=== PATIENT | female | born 1960 | race Caucasian/White ===

== ENCOUNTER 2017-02-28 15:28 | Inpatient (IN) | payer OTHER ==
[2017-02-28] VITALS (14 sets, daily range): BP systolic 106–152; BP diastolic 52–77
[~2017-02-28] VITALS: Ht 172.7 cm; Wt 111.6 kg
[~2017-02-28 15:28] MED LIST: ACET65TA; AMLO10TA; CETI5TAB2; FLAG500T; FLON0.05; LEVA500T; LOPR100T; PROV90AE; VICO5TAB
[2017-02-28] MEDS ORDERED: ALBU17IN INH (15:51)
[2017-02-28] MEDS ORDERED: BUSP1TAB PO (15:51)
[2017-02-28] MEDS ORDERED: METO-346 PO (15:51)
[2017-02-28] MEDS ORDERED: LISI10TA4 PO (15:51)
[2017-02-28] MEDS ORDERED: SYMB16INH INH (15:51)
[2017-02-28] MEDS ORDERED: ALBU83IN INH (15:51)
[2017-02-28] MEDS ORDERED: SERT-138 PO (15:51)
[2017-02-28] MEDS: METOPROLOL 5 MG/5 ML VIAL IV SCH ×3 (16:06→16:14)
[2017-02-28] MEDS ORDERED: NS 500 ML IV ONE ×3 (16:30→21:30)
[2017-02-28] MEDS ORDERED: METOPROLOL TART 25 MG TABLET PO ONE (16:30)
[2017-02-28 16:46] LABS: BASO % 0.3 % (0.0-1.0); EOS # 0.1 K/mm3 (0.0-0.50); EOS % 1.6 % (0.0-3.0); LARGE UNSTAINED CELL # 0.1 K/mm3 (0.0-0.4); LARGE UNSTAINED CELL % 1.4 % (0.0-4.0); LYMPH # 1.5 K/mm3 (1.5-4.5); LYMPH % 18.9 % (24.0-44.0); MEAN CORPUSCULAR HEMOGLOBIN 31.1 pg (27.0-33.0); MEAN CORPUSCULAR HGB CONC 32.7 g/dl (32.0-36.5); MEAN CORPUSCULAR VOLUME 95.1 fl (80.0-96.0); MONO # 0.5 K/mm3 (0.0-0.8); MONO % 6.2 % (0.0-5.0); NEUTROPHILS # 5.6 K/mm3 (1.8-7.7); NEUTROPHILS % 71.6 % (36.0-66.0); PLATELET COUNT, AUTOMATED 325 k/mm3 (150-450); RED CELL DISTRIBUTION WIDTH 13.5 % (11.5-14.5); WHITE BLOOD COUNT 7.8 K/mm3 (4.0-10.0)
[2017-02-28 16:56] LABS: ALBUMIN 3.4 GM/DL (3.2-5.2); ALBUMIN/GLOBULIN RATIO 0.67 (1.00-1.93); ALT/SGPT 21 U/L (12-78); ANION GAP 12 MEQ/L (8-16); AST/SGOT 40 U/L (15-37); BILIRUBIN,DIRECT 0.8 MG/DL (0.0-0.2); BILIRUBIN,TOTAL 1.3 MG/DL (0.2-1.0); BLOOD UREA NITROGEN 21 MG/DL (7-18); CALCIUM LEVEL 8.9 MG/DL (8.5-10.1); CARBON DIOXIDE LEVEL 19 MEQ/L (21-32); CHLORIDE LEVEL 105 MEQ/L (98-107); CREATININE FOR GFR 0.93 MG/DL (0.55-1.02); GLOMERULAR FILTRATION RATE > 60.0 (>51); GLUCOSE, FASTING 128 MG/DL (70-105); POTASSIUM SERUM 3.8 MEQ/L (3.5-5.1); SODIUM LEVEL 136 MEQ/L (136-145); T UPTAKE 30 % (30-39); THYROXINE (T4) 9.9 UG/DL (4.5-12.0); TOTAL PROTEIN 8.5 GM/DL (6.4-8.2)
[2017-02-28 17:02] LABS: ALKALINE PHOSPHATASE 186 U/L (45-117)
--- NOTE | 2017-02-28 17:16 | REP ---
Chest two views HISTORY: Chest pain Comparison: 05/16/2014 The lungs are clear. The cardiac silhouette is enlarged. The pulmonary vasculature is normal in appearance. The bony structure is intact. IMPRESSION: Cardiomegaly Signed by Thomas Jay MD 02/28/2017 05:08 P
[2017-02-28] MEDS ORDERED: NORCO, ANEXSIA 5/325MG TABLET (HYDROcodone/ACETAMINOPHEN) PO ONE (17:30)
--- NOTE | 2017-02-28 17:59 | REP ---
RIGHT SHOULDER, THREE VIEWS: HISTORY: Pain. There is no acute fracture or dislocation. There is narrowing of the acromioclavicular joint space with associated osteophyte formation. IMPRESSION: Degenerative change as described above. Signed by Thomas Jay MD 02/28/2017 06:09 P
--- NOTE | 2017-02-28 18:24 | REP ---
LIMITED ABDOMINAL ULTRASOUND: HISTORY: Right upper quadrant pain. The patient is status-post cholecystectomy. The liver is enlarged measuring 21.6 cm. There is fatty infiltration of the liver. The pancreas is not seen due to overlying bowel gas. The right kidney is normal in echogenicity. The right kidney measures 5.7 cm in transverse x 6 cm in AP x 12 cm in cephalocaudal dimensions. There is no hydronephrosis or mass. IMPRESSION: 1. The patient is status-post cholecystectomy. 2. Fatty infiltration of the liver. Signed by Tohmas Jay MD 02/28/2017 06:29 P
[2017-02-28] MEDS ORDERED: METO25TAB PO (18:38)
[2017-02-28] MEDS ORDERED: VITA-130 PO (18:41)
[2017-02-28] MEDS ORDERED: VITA80005 PO (18:41)
[2017-02-28] MEDS ORDERED: NATU400T PO (18:41)
[2017-02-28] MEDS ORDERED: CETI5TAB2 PO (18:41)
[2017-02-28] MEDS ORDERED: ASPI325T PO (18:41)
[2017-02-28] MEDS ORDERED: VITA200015 PO (18:41)
[2017-02-28] MEDS ORDERED: VITATAB11 PO (18:41)
[2017-02-28] MEDS ORDERED: NS 1,000 ML IV ONE (19:15)
[2017-02-28] MEDS ORDERED: PERCOCET 5MG/325MG TAB PO PRN (19:30)
[2017-02-28] MEDS ORDERED: POTASSIUM CHLORIDE 10 MEQ SR TABLET PO ONE (19:30)
--- NOTE | 2017-02-28 19:36 | HPEPDOC ---
Medical History and Physical Date of Admission 02/28/17 History and Physical PRIMARY CARE PROVIDER: Dr. Villalobos ATTENDING: Dr. Katelyn Rosario CHIEF COMPLAINT: Shortness of breath HISTORY OF PRESENT ILLNESS: This is a 56-year-old female with a past medical history of asthma, hypertension , chronic allergic rhinitis, diverticulitis, hyperlipidemia who presents complaining of shortness of breath and cough. The patient states that she's been having a productive cough of white sputum, nasal congestion, postnasal drip, subjective fevers and chills over the past week. Patient has had no sick contacts or recent travels. Patient presented to the urgent care Center today and was found to be in atrial fibrillation with rapid ventricular rate for which she was sent to the emergency department. In the ED patient received metoprolol, and IV fluids. And will be admitted for uncontrolled rapid ventricular rate. PAST MEDICAL HISTORY: As per HPI PAST SURGICAL HISTORY: , hernia repair, cholecystectomy SOCIAL HISTORY: Denies tobacco or illicit drug use. Occasional alcohol. 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 FAMILY HISTORY: Grandmother with an MO at unknown age. ALLERGIES: Please see below. REVIEW OF SYSTEMS: HEENT: Denies sore throat/headache CARDIOVASCULAR: Denies chest pain/palpitations RESPIRATORY: + shortness of breath/cough GASTROINTESTINAL: denies nausea/vomiting GENITOURINARY: Denies dysuria/urinary urgency. MUSCULOSKELETAL: Denies myalgias/arthralgias NEUROLOGICAL: Denies any focal weakness Rest of ROS negative. HOME MEDICATIONS: Please see below. PHYSICAL EXAMINATION: Vitals: (see below) General: No acute distress, laying comfortably in bed. HEENT: Moist mucous membranes. Neck: No JVD or lymphadenopathy Cardiac: Irregularly irregular, tachycardic, No murmurs Pulm: Exp wheezing b/l. No rhonchi, stridor, or use of accessory muscles. Abd: NT/ND + BS Ext: No edema or cyanosis LABORATORY DATA: See below. IMAGING: CXR 02/28/17 The lungs are clear. The cardiac silhouette is enlarged. The pulmonary vasculature is normal in appearance. The bony structure is intact. IMPRESSION: Cardiomegaly Abd u/s 02/28/17 IMPRESSION: 1. The patient is status-post cholecystectomy. 2. Fatty infiltration of the liver. Right shoulder x ray 5/3/17 IMPRESSION: Degenerative change as described above. MICROBIOLOGY: Please see below. ASSESSMENT/PLAN: 1. Atrial fibrillation with rapid ventricular rate - CHADSVASc 2: Hold off on anticoag given pericardial effusion. Continue metoprolol. IV fluids. Questionable whether patient has an underlying infectious etiology given her subjective fevers chills, pulmonary symptoms, and a CRP of 10. We'll start patient on Levaquin. CT of the chest without contrast. Respiratory panel. Blood and sputum cultures pending. 2. Large pericardial effusion - discussed with Dr. Lombardo - will order start echo - hold off on anticoagulation for AF for now. Monitor in PCU. 2. Hypertension- patient is borderline hypotensive. Will hold BP meds. On IV fluids. 3. Asthma exacerbation - ? Viral versus bacterial. On Levaquin. Respiratory panel pending. Nebulizers ordered. 4. Right shoulder degenerative changes - Percocet as needed 5. Fatty liver disease with mild transaminitis- lipid panel, statin Due to prophylaxis- Lovenox Patient was followed by Dr. Rosario starting 02/28/17 at 7 AM. Vital Signs Vital Signs Date Time Temp Pulse Resp B/P (MAP) Pulse Ox O2 Delivery O2 Flow Rate FiO2 02/28/17 18:30 100/64 (76) 02/28/17 18:28 122 95 02/28/17 17:30 16 02/28/17 16:14 Nasal Cannula 3.0 02/28/17 15:28 97.6 Laboratory Data Labs 24H Laboratory Tests 2 02/28/17 15:52: White Blood Count 7.8, Red Blood Count 3.66L, Hemoglobin 11.4L, Hematocrit 34.8L , Mean Corpuscular Volume 95.1, Mean Corpuscular Hemoglobin 31.1, Mean Corpuscular Hemoglobin Concent 32.7, Red Cell Distribution Width 13.5, Platelet Count 325, Neutrophils (%) (Auto) 71.6H, Lymphocytes (%) (Auto) 18.9L, Monocytes (%) (Auto) 6.2H, Eosinophils (%) (Auto) 1.6, Basophils (%) (Auto) 0.3 , Neutrophils # (Auto) 5.6, Lymphocytes # (Auto) 1.5, Monocytes # (Auto) 0.5, Eosinophils # (Auto) 0.1, Basophils # (Auto) 0.0, Large Unclassified Cells % 1.4 , Large Unclassified Cells # 0.1, Activated Partial Thromboplast Time 38.7H, Anion Gap 12, Glomerular Filtration Rate > 60.0, Calcium Level 8.9, Aspartate Amino Transf (AST/SGOT) 40H, Alanine Aminotransferase (ALT/SGPT) 21, Alkaline Phosphatase 186H, Total Bilirubin 1.3H, Direct Bilirubin 0.8H, Total Creatine Kinase 35, Creatine Kinase MB 1.0, Creatine Kinase MB Relative Index 2.85, Troponin I < 0.02, C-Reactive Protein, Quantitative 10.10H, B-Type Natriuretic Peptide 401H, Total Protein 8.5H, Albumin 3.4, Albumin/Globulin Ratio 0.67L, Thyroid Stimulating Hormone (TSH) 2.000, Free Thyroxine Index 3.0, Thyroxine (T4 ) 9.9, Triiodothyronine (T3) Uptake 30 CBC/BMP Laboratory Tests 02/28/17 15:52 Red Blood Count 3.66 L, Mean Corpuscular Volume 95.1, Mean Corpuscular Hemoglobin 31.1, Mean Corpuscular Hemoglobin Concent 32.7, Red Cell Distribution Width 13.5, Neutrophils (%) (Auto) 71.6 H, Lymphocytes (%) (Auto) 18.9 L, Monocytes (%) (Auto) 6.2 H, Eosinophils (%) (Auto) 1.6, Basophils (%) ( Auto) 0.3, Neutrophils # (Auto) 5.6, Lymphocytes # (Auto) 1.5, Monocytes # (Auto ) 0.5, Eosinophils # (Auto) 0.1, Basophils # (Auto) 0.0 Microbiology Microbiology 02/28/17 Blood Culture, Received Pending 02/28/17 Blood Culture, Received Pending Home Medications Scheduled Alpha Tocopheryl Acid Succinat (Vitamin E) 400 Unit Tab, 400 UNIT PO DAILY Ascorbic Acid (Vitamin C) 500 Mg Tab, 500 MG PO DAILY Aspirin (Aspirin) 325 Mg Tab, 325 MG PO DAILY B1/B2/B3/B5/B6 (Vitamin B Complex) 1 Tab Tab, 1 TAB PO DAILY Budesonide/Formoterol (Symbicort 160-4.5 Mcg/Act) 60 Puff/Inhaler Aers, 1 PUFF INH BID Buspirone HCl (Buspirone HCl) 7.5 Mg Tab, 7.5 MG PO DAILY Cetirizine HCl (Cetirizine HCl) 5 Mg Tab, 5 MG PO DAILY Cholecalciferol (Vitamin D) 2,000 Unit Tab, 2,000 UNIT PO DAILY Lisinopril (Lisinopril) 10 Mg Tab, 10 MG PO BID Metoprolol Tartrate (Metoprolol Tartrate) 25 Mg Tab, 25 MG PO BID Sertraline HCl (Sertraline HCl) 100 Mg Tab, 100 MG PO DAILY Vitamin A Acetate (Vitamin A) 8,000 Unit Tab, 8,000 UNIT PO DAILY Scheduled PRN Albuterol Sulfate (Ventolin Hfa) 200 Puff/8 Gm Aers, 2 PUFFS INH Q4H PRN for SHORTNESS OF BREATH Albuterol Sulfate (Albuterol Sulfate) 2.5 Mg/3 Ml Nebu, 2.5 MG INH BID PRN for SHORTNESS OF BREATH Allergies Coded Allergies: Latex (Unverified Allergy, Intermediate, 02/28/17) verified with patient Penicillins (Verified Allergy, Intermediate, RASH, 07/10/16) Penicillins Cross Reactors (Verified Allergy, Intermediate, RASH, 07/10/16) Sulfa Drugs (Verified Allergy, Intermediate, RASH, 07/10/16) Sulfa Drugs Cross Reactors (Verified Allergy, Intermediate, RASH, 07/10/16) CARINA COLÓN MD February 28, 2017 19:36
[2017-02-28] MEDS ORDERED: MORPHINE 2 MG/ML 1ML SYRINGE IV ONE (19:45)
[2017-02-28] MEDS ORDERED: LevoFLOXacin IV 500 MG in APPROPRIATE DILUENT 1 EA IV ONE (20:00)
--- NOTE | 2017-02-28 20:20 | REPUSA ---
CT of the chest without contrast Clinical statement: Shortness of breath. Technique: Multiple axial CT images were obtained with 5 mm cuts through the chest without administra tion of contrast. No comparison is available. Findings: There is no thoracic lymphadenopathy. The visualized portions of the thyroid gland is unrem arkable. There is a large pericardial effusion. There are no pleural effusions. The lungs are clear. Limited imaging of the upper abdomen does not demonstrate any acute abnormalities. The liver is enlar ged, measuring 22.7 cm. The spleen is enlarged, measuring 14.9 cm. There are no suspicious osseous le sions. Impression: 1. No acute infiltrate or pleural effusion. 2. Large pericardial effusion. If there is further clinical concern, echocardiogram could be performe d. 3. Hepatosplenomegaly.
[2017-02-28] MEDS: SYMBICORT 160/4.5MCG INHALER 6GM INH SCH (21:00)
[2017-02-28] MEDS ORDERED: ENOXAPARIN 100MG/1ML SYRINGE (J1650) SC SCH (21:00)
[2017-02-28] MEDS ORDERED: METOPROLOL TART 25 MG TABLET PO SCH (21:00)
[2017-02-28 21:28] LABS: MAGNESIUM LEVEL 1.8 MG/DL (1.8-2.4)
--- NOTE | 2017-02-28 21:53 | ECGEPIP ---
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
[2017-02-28] MEDS ORDERED: MIDAZOLAM INJ 2 MG/2 ML VIAL (J2250) As Ordered ONE ×2 (22:05→22:53)
[2017-02-28] MEDS ORDERED: LIDOCAINE 1% MDV 20ML VIAL As Ordered ONE (22:05)
[2017-02-28] MEDS ORDERED: FLUMAZENIL 0.5 MG/5 ML VIAL As Ordered ONE (22:05)
[2017-02-28] MEDS ORDERED: MAG SULF 1GM/100ML (MAG RUN) 1 GM in APPROPRIATE DILUENT 1 EA IV ONE (22:15)
[2017-02-28] MEDS ORDERED: MORPHINE 4 MG/ML 1ML SYRINGE As Ordered ONE (23:07)
--- NOTE | 2017-02-28 23:12 | ECHO ---
DATE OF PROCEDURE: 02/28/2017 REFERRING PHYSICIAN: Katelyn Rosario MD PATIENT LOCATION: ICU REASON FOR ECHOCARDIOGRAM: Pericardial effusion on chest CT. 2D COMMENTS: 1. The study was technically limited due to poor acoustic window, no measurements. 2. The left ventricle appeared to be normal in size and systolic function appeared to be normal, estimated at 60% in limited views. 3. The left atrium appeared to be mildly enlarged subjectively. The right atrium and the right ventricle were not well visualized. 4. The atrial septum appeared to be normal in limited views. 5. The aortic root appeared to be normal. 6. Large pericardial effusion noted, no clear evidence of cardiac tamponade but in limited views, in the short axis view toward the base of the left ventricle, there was mild collapse of the right ventricle free wall. 7. Mildly calcified aortic valve, leaflet excursion appeared to be normal. Normal mitral valve. The tricuspid valve appeared to be normal in limited views. The proximal pulmonary artery branches were not well visualized. 8. The inferior vena cava was mildly enlarged in limited views without collapsing. DOPPLER: No significant valvular abnormalities were detected. Assessment of the left ventricular diastolic function was limited in view of the atrial fibrillation. IMPRESSION: 1. Technically limited study due to poor acoustic window. 2. Normal global left ventricular systolic function. 3. Large pericardial effusion, no clear evidence of cardiac tamponade. Not mentioned above in the Doppler section, there is some variation in the mitral inflow, but the patient has underlying atrial fibrillation. 4. No significant valvular abnormalities detected. 5. The case was discussed with hospitalist, and Dr. Salas was called for consult for pericardiocentesis versus pericardial window.
[2017-02-28] MEDS ORDERED: METOPROLOL 5 MG/5 ML VIAL IV STA (23:27)
[2017-02-28] MEDS ORDERED: BISACODYL 10 MG SUPP PR PRN (23:30)
[2017-02-28] MEDS ORDERED: ACETAMINOPHEN TAB 650MG DOSE (2X325MG) PO PRN (23:30)
[2017-02-28] MEDS ORDERED: LEVALBUTEROL 1.25 MG/0.5 ML CONCENTRATE NEB NEB PRN (23:30)
[2017-02-28] MEDS ORDERED: NORCO, ANEXSIA 5/325MG TABLET (HYDROcodone/ACETAMINOPHEN) PO PRN (23:30)
[2017-03-01] VITALS (19 sets, daily range): BP systolic 102–166; BP diastolic 55–79
[2017-03-01] MEDS ORDERED: MORPHINE 4 MG/ML 1ML SYRINGE IV ONE (00:15)
[2017-03-01] MEDS ORDERED: LIDOCAINE 1% MDV 20ML VIAL SC ONE (00:15)
[2017-03-01] MEDS ORDERED: MIDAZOLAM INJ 2 MG/2 ML VIAL (J2250) IV SCH (00:15)
[2017-03-01] MEDS: HEPARIN SOD (PORCINE) 5000 UNITS/ML VIAL SC SCH ×3 (00:34→21:46)
[2017-03-01 00:35] LABS: ABG BASE EXCESS -6.2 (-2.0-2.0); ABG PARTIAL PRESSURE CO2 31.4 mmHg (35.0-45.0); ABG PARTIAL PRESSURE O2 80.2 mmHg (75.0-100.0); ABG STANDARD HCO3 19.4 MEQ/L (22.0-26.0); ABG pH (ARTERIAL) 7.377 UNITS (7.350-7.450)
[2017-03-01] MEDS: KETOROLAC 30 MG/ML VIAL (J1885) IV SCH ×5 (00:36→23:36)
[2017-03-01] MEDS: VANCOMYCIN HCL 1,000 MG, VIAL MATE ADAPTER 1 EACH in D5W 250 ML IV SCH ×3 (00:36→23:36)
[2017-03-01] MEDS: LEVALBUTEROL 1.25 MG/0.5 ML CONCENTRATE NEB NEB SCH ×4 (01:05→20:00)
[2017-03-01 01:20] LABS: LDH, BODY FLUID 1902 U/L (NOT ESTABLISHED); TOTAL PROTEIN, BODY FLUID 6.3 G/DL (NOT ESTABLISHED)
[2017-03-01 01:50] LABS: BF DIFF IF INDICATED? YES (NO); RBC PLEURAL FLUID 227 (<10mm3 cells/uL); TNC PLEURAL FLUID 1569 cells/uL (0-20)
--- NOTE | 2017-03-01 02:08 | REP ---
Clinical: Chest pain. Comparison: 02/28/2017 at 05:07 p.m. Findings: Examination is limited by underpenetration and portable technique. Mild cardiomegaly cannot be excluded. Lung gonzales are essentially clear and without consolidation, obvious effusion, or pneumothorax. Skeletal structures intact. Impression: Limited portable examination. No focal consolidation. Cannot exclude mild cardiomegaly. Signed by Randolph Perera MD 03/01/2017 02:00 A
[2017-03-01 03:03] LABS: CC BF DIFF EXAM CYTOCENTRIFUGE
[2017-03-01] MEDS ORDERED: VANCOMYCIN HCL 500 MG in D5W MINI-BAG PLUS 100 ML IV SCH (04:00)
[2017-03-01 05:17] LABS: MEAN CORPUSCULAR HEMOGLOBIN 30.3 pg (27.0-33.0); MEAN CORPUSCULAR HGB CONC 31.6 g/dl (32.0-36.5); RED CELL DISTRIBUTION WIDTH 13.2 % (11.5-14.5); WHITE BLOOD COUNT 7.1 K/mm3 (4.0-10.0)
[2017-03-01 05:40] LABS: ANION GAP 10 MEQ/L (8-16); BLOOD UREA NITROGEN 19 MG/DL (7-18); CALCIUM LEVEL 8.2 MG/DL (8.5-10.1); CARBON DIOXIDE LEVEL 23 MEQ/L (21-32); CHLORIDE LEVEL 104 MEQ/L (98-107); CREATININE FOR GFR 0.85 MG/DL (0.55-1.02); GLOMERULAR FILTRATION RATE > 60.0 (>51); GLUCOSE, FASTING 106 MG/DL (70-105); MAGNESIUM LEVEL 1.9 MG/DL (1.8-2.4); POTASSIUM SERUM 3.8 MEQ/L (3.5-5.1); SODIUM LEVEL 137 MEQ/L (136-145)
--- NOTE | 2017-03-01 05:40 | ECHO ---
DATE OF PROCEDURE: 02/28/2017 DATE OF : 1960 AGE: 56 This is a limited echocardiogram done at bedside after pericardial centesis. About 650 mL of bloody pericardial fluid was sent. On a quick limited echocardiogram, only trace pericardial effusion was noted. Left ventricular systolic function is normal seems to have improved up to 65-70% with a hyperdynamic left ventricle. Please refer to the previous echocardiogram done earlier today prior to the pericardial centesis for details. IMPRESSION: As above.
[2017-03-01 05:53] LABS: ABG BASE EXCESS -5.2 (-2.0-2.0); ABG HCO3 19.1 MEQ/L (22.0-26.0); ABG PARTIAL PRESSURE O2 79.4 mmHg (75.0-100.0); ABG STANDARD HCO3 20.1 MEQ/L (22.0-26.0); ABG TOTAL CO2 20.1 MEQ/L (22.0-29.0)
--- NOTE | 2017-03-01 06:06 | PHACANCOPD ---
PHARMACY VANCOMYCIN DOSING Pt Demographics Demographics Patient Age:56 , Weight:109.500 , Gender: female Adjusted Body Weight Date: 03/01/17, Adjusted Body Weight: [80.1] Kg Vancomycin Vancomycin indication: ASTHMA EXACERBATION/EFFUSION Vancomycin Target Ranges: 15-20 mcg/ml Vancomycin Load Y/N: Yes Load Dose Date Time Vancomycin Load Dose: 1.5GM Date: 03/01 Time: 0200 Vancomycin Dose Date: 03/01/17. Current Vancomycin Dose: [1 GM Q12H] Intermittent Dosing?: No Labs Labs Laboratory Tests 02/28/17 15:52 Red Blood Count 3.66 L, Mean Corpuscular Volume 95.1, Mean Corpuscular Hemoglobin 31.1, Mean Corpuscular Hemoglobin Concent 32.7, Red Cell Distribution Width 13.5, Neutrophils (%) (Auto) 71.6 H, Lymphocytes (%) (Auto) 18.9 L, Monocytes (%) (Auto) 6.2 H, Eosinophils (%) (Auto) 1.6, Basophils (%) ( Auto) 0.3, Neutrophils # (Auto) 5.6, Lymphocytes # (Auto) 1.5, Monocytes # (Auto ) 0.5, Eosinophils # (Auto) 0.1, Basophils # (Auto) 0.0 03/01/17 05:00 Red Blood Count 3.39 L, Mean Corpuscular Volume 96.0, Mean Corpuscular Hemoglobin 30.3, Mean Corpuscular Hemoglobin Concent 31.6 L, Red Cell Distribution Width 13.2, Calcium Level 8.2 L, Total Creatine Kinase 75 # Micro Microbiology 02/28/17 Blood Culture, Received Pending 02/28/17 Blood Culture, Received Pending 02/28/17 Body Fluid Culture, Received Pending 02/28/17 Acid Fast Stain, Received Pending 02/28/17 Mycobacterial Culture, Received Pending 02/28/17 Fungal Smear, Received Pending 02/28/17 Fungal Culture, Received Pending 02/28/17 Gram Stain, Received Pending 02/28/17 Anaerobic Culture, Received Pending 02/28/17 Respiratory Virus Panel (PCR) (MÓNICA), Ordered Pending Creatinine Clearance Date:03/01/17. Creatinine Clearance: [87.4]CALCULATED. Pending Labs Vancomycin trough ordered for 03/02@1100 Assessment and Plan Maintaining Current Dose?: Yes Reason for dose change: No Dose Change Pharmacist Note Pharmacist Note Date: 03/01/17. Pharmacist note:Patient admitted with acute asthma exacerbation/ effusion: treating [id number] iv q24h(begun 01/30@1999 and Vanciomycin per consult.Patient SCR=0.93:calculated CRCL=87.4:administered 1500mg Vancomycin load with a continuing regimen of 1 GM IV Q12H:first trough scheduled for 03/02@ 1100: will continue to monitor labs and levels [facility] March 01, 2017 06:06
[2017-03-01] MEDS: DOCUSATE SODIUM 100 MG CAP PO SCH ×2 (08:24→21:45)
[2017-03-01] MEDS: PANTOPRAZOLE 40MG TAB (PROTONIX) PO SCH (08:24)
[2017-03-01] MEDS: CETIRIZINE (ZyrTEC) 5 MG/5 ML UDC DYE FREE PO SCH (08:24)
[2017-03-01] MEDS: METOPROLOL TART 25 MG TABLET PO SCH ×2 (08:27→21:45)
[2017-03-01] MEDS: SERTRALINE 100 MG TAB PO SCH (08:27)
[2017-03-01] MEDS: PERCOCET 5MG/325MG TAB PO PRN ×3 (08:29→23:50)
[2017-03-01] MEDS: MOM 30ML SUSPENSION UDC PO SCH (08:29)
[2017-03-01] MEDS: VITAMIN D 1,000 INTERNATIONAL UNITS TABLET PO SCH (08:29)
[2017-03-01] MEDS: SYMBICORT 160/4.5MCG INHALER 6GM INH SCH ×2 (08:38→20:22)
--- NOTE | 2017-03-01 08:55 | IPN ---
DATE: 03/01/2017 Mrs. Mc remains in the intensive care unit (ICU). She has a pericardial drain in place that was placed yesterday by Dr. Salas. She drained about 500 mL initially and she still continues to drain, but much less so. She does complain about sharp discomfort in the left shoulder, but otherwise her breathing is much better. Another piece of good news is the fact that she converted to sinus rhythm this morning. Vital Signs: Blood pressure 118/61. Heart rate is in 70s. She is afebrile. Saturation is in high 90s on room air. Jugular venous pulse (JVP) is not up. Lungs are clear. Heart exam reveals a regular rhythm. I do not appreciate any rub, at least not in the parasternal area. The pericardial the drain is in place. Abdomen is obese, but soft. There is no peripheral edema. Laboratory-mary, pericardial fluid analysis is consistent with exudate as expected. Basic metabolic panel is essentially normal. CBC: Hemoglobin 10.3, hematocrit 32 and platelet count 233,000. ASSESSMENT/PLAN: Mrs. Mc is a 56-year-old female who presented with atrial fibrillation with a rapid ventricular response (RVR) and was found to have a large pericardial effusion that was drained last evening by Dr. Salas. It most likely represents a viral process. At this point, she converted to sinus rhythm, which is certainly encouraging. I would continue management with NSAIDs. The decision to remove the drain will be up to Dr. Salas, but I expect that it will be in at least another day or two. I will also start her on low-dose colchicine. I do expect that she will continue to get better.
--- NOTE | 2017-03-01 09:45 | IPNPDOC ---
Subjective Date Seen The patient was seen on 03/01/17. Subjective Chief Complaint/HPI The patient is a 56-year-old female admitted with a reason for visit of Artial Fibrillation With Rvr. Events since last encounter Patient was seen this morning in the ICU. She reports that she had progressive shortness of breath and cough and thought it was due to her asthma. She went to see urgent care and was found to be atrial fibrillation with RVR and was brought to the emergency department. She was also found to have large pericardial effusion for which she has a current chest tube in place. This morning, she denies any chest pain but states that it does feel a little tight. She is also complaining of right shoulder pain. Breathing is stable. She denies any nausea, vomiting. No lightheadedness or dizziness this morning. She had a low-grade temperature yesterday 90. She is afebrile this morning and vitals are stable. Objective Physical Examination General Exam: Positive: Alert, Cooperative, No Acute Distress Eye Exam: Positive: Conjunctiva & lids normal, EOMI, Negative: Sclera icteric ENT Exam: Positive: Atraumatic, Mucous membr. moist/pink, Pharynx Normal Neck Exam: Positive: Supple, Negative: thyromegaly Chest Exam: Positive: Normal air movement, Wheezing (occasional expiratory) Heart Exam: Positive: Rate Normal, Regular Rhythm, Normal S1, Normal S2, Negative: Murmurs Abdomen Exam: Positive: Normal bowel sounds, Soft, Negative: Tenderness Extremity Exam: Positive: Normal pulses, Negative: Cyanosis, Edema Skin Exam: Positive: Nl turgor and temperature, Negative: Rash Neuro Exam: Positive: Normal Speech, Cranial Nerves 3-12 NL Psych Exam: Positive: Mental status NL, Mood NL, Oriented x 3 Assessment /Plan Problems (1) Pericardial effusion Status: Acute Problem Specific Plan: Monitor Clinically Problem Text: * Possibly infectious in etiology given history of fever/chills * Dr. Salas currently following * Pericardial chest tube in place * Pericardial fluid analysis pending * She has been initiated on colchicine twice a day * Also receiving Levaquin and vancomycin * Pain medication/anti-inflammatory as needed (2) Atrial fibrillation with rapid ventricular response Status: Acute Problem Specific Plan: Monitor Clinically Problem Text: * May be secondary to pericardial effusion or possibly infectious * Currently in sinus rhythm, rate controlled * On Lopressor twice a day (3) Hypertension Status: Chronic Problem Specific Plan: Monitor Clinically Problem Text: * Blood pressure stable (4) Right shoulder pain Status: Chronic Problem Specific Plan: Monitor Clinically Problem Text: * Pain medication as needed (5) Fatty infiltration of liver Status: Chronic Problem Specific Plan: Monitor Clinically Problem Text: * Seen on right upper quadrant ultrasound performed on 02/28/17 * AST and bilirubin mildly elevated (6) Asthma Status: Chronic Problem Specific Plan: Monitor Clinically Problem Text: * Continue Symbicort and albuterol as needed (7) Allergic rhinitis Status: Chronic Problem Text: * Continue with cetirizine Plan/VTE VTE Prophylaxis Ordered?: Yes (heparin) VS, I&O, 24H, Fishbone Vital Signs/I&O Vital Signs Date Time Temp Pulse Resp B/P (MAP) Pulse Ox O2 Delivery O2 Flow Rate FiO2 03/01/17 08:39 72 03/01/17 08:29 18 03/01/17 08:27 126/59 03/01/17 06:00 96 03/01/17 04:00 97.6 03/01/17 00:50 Room Air 02/28/17 23:45 3.0 I&O- Last 24 Hours up to 6 AM 03/01/17 06:00 Intake Total 4430 ml Output Total 1116 ml Balance 3314 ml Laboratory Data CBC/BMP Laboratory Tests 02/28/17 15:52 Red Blood Count 3.66 L, Mean Corpuscular Volume 95.1, Mean Corpuscular Hemoglobin 31.1, Mean Corpuscular Hemoglobin Concent 32.7, Red Cell Distribution Width 13.5, Neutrophils (%) (Auto) 71.6 H, Lymphocytes (%) (Auto) 18.9 L, Monocytes (%) (Auto) 6.2 H, Eosinophils (%) (Auto) 1.6, Basophils (%) ( Auto) 0.3, Neutrophils # (Auto) 5.6, Lymphocytes # (Auto) 1.5, Monocytes # (Auto ) 0.5, Eosinophils # (Auto) 0.1, Basophils # (Auto) 0.0 03/01/17 05:00 Red Blood Count 3.39 L, Mean Corpuscular Volume 96.0, Mean Corpuscular Hemoglobin 30.3, Mean Corpuscular Hemoglobin Concent 31.6 L, Red Cell Distribution Width 13.2, Calcium Level 8.2 L, Total Creatine Kinase 75 # Microbiology Microbiology 02/28/17 Blood Culture, Received Pending 02/28/17 Blood Culture, Received Pending 02/28/17 Body Fluid Culture, Received Pending 02/28/17 Acid Fast Stain, Received Pending 02/28/17 Mycobacterial Culture, Received Pending 02/28/17 Fungal Smear, Received Pending 02/28/17 Fungal Culture, Received Pending 02/28/17 Gram Stain, Received Pending 02/28/17 Anaerobic Culture, Received Pending 02/28/17 Respiratory Virus Panel (PCR) (MÓNICA), Ordered Pending MANDO SMILEY DO March 01, 2017 09:45
[2017-03-01] MEDS: COLCHICINE 0.6 MG TAB PO SCH ×2 (10:38→21:44)
--- NOTE | 2017-03-01 11:01 | CR ---
DATE OF CONSULTATION: 02/28/2017 The patient is seen at the request of Dr. Lombardo for a pericardial effusion and hypotension after Lopressor given for atrial fibrillation. HISTORY OF PRESENT ILLNESS: The patient is a 56-year-old, white female who has noted increasing shortness of breath over the last few days. This morning, she awoke and was getting even more short of breath and decided to seek medical attention. She has had a cough these last few days with some white sputum production. She says she has felt feverish and has had chills, but not rigor. Her temperature on admission was 100.5. She has maintained her weight. She has been getting more short of breath lying flat and has been sitting on the couch to relieve her shortness of breath. She denies leg swelling. These last 24 hours, she has felt an aching type pain in the middle of her chest. It does not hurt when she takes a deep breath however. She has had no dysphagia and she has been able to maintain her weight. She denies any hemoptysis. PAST MEDICAL HISTORY: 1. Hypertension. 2. Asthma. 3. Anxiety. 4. Depression. PAST SURGICAL HISTORY: 1. Cholecystectomy. 2. section. 3. Two hernias. MEDICATIONS AT HOME: - Symbicort 164.5 one puff twice a day - Ventolin 2 puffs every 4 hours as needed shortness of breath - albuterol 2 puffs twice a day - metoprolol 25 mg twice a day - Cetirizine 5 mg daily - cholecalciferol 2000 units daily - aspirin 325 mg daily - lisinopril 10 mg twice a day - Sertraline 100 mg daily - buspirone 7.5 mg daily TRAVEL HISTORY: She has traveled all over the world, including the [place] been to [place] to [place] and to [place]. EXPOSURES: She has one dog at home, a chocolate lab. No cats or birds. No tuberculosis exposure. 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 There is no asbestos exposure. FAMILY HISTORY: Father of prostate cancer. Mother of breast cancer. HABITS: Does not and has not smoked. Drinks only occasionally. No illicit drugs. REVIEW OF SYSTEMS: Constitutional: See history of present illness (HPI). Eyes: Without diplopia. Without transient monocular blindness. Without prior jaundice. Nose: Without epistaxis. Mouth: Has her own teeth. Cardiac: See HPI. No intermittent claudication or peripheral edema. Pulmonary: See HPI. Has known asthma. Gastrointestinal (GI): Without nausea, vomiting, diarrhea, constipation, melena, hematochezia, hematemesis or abdominal pain. Genitourinary (): Without dysuria or hematuria or prior history of renal stones. Neurologic: Without paralyses, seizures or paresthesias. Endocrine: Without diabetes. Without thyroid disease. Lymphatics: Without lumps and bumps that she has noticed in her neck, axilla or groins. Hematologic: Without prolonged bleeding times. Psychiatric: Has depression and anxiety for which she is treated. PHYSICAL EXAMINATION: In the intensive care unit, where I am seeing her, her temperature is 100.5, with a heart rate that ranges between 134 and 126 in atrial fibrillation, a respiratory rate of 18-20 without the use of accessory muscles, who is 97% to 95% saturated on room air, and whose blood pressure is 109/75 to 141/93. Eyes: Shows her pupils to be equal, round and reactive to light. Extraocular movements intact. Sclerae nonicteric. Head: Normocephalic. Nose: Without deformity. Mouth: Shows her mucous membranes to be pink and moist. Lips and gums without lesions. There is no thrush. Teeth in good repair. Neck: Supple. There is no jugular venous distention. No subcutaneous emphysema. Trachea is midline. There are no carotid bruits, but she has 2+ carotid upstroke. No lymphadenopathy or thyromegaly. Lungs: Show normal vesicular sounds, equal on either side. Percussion note is full to the diaphragm. Cardiac Exam: Shows an irregular rate and rhythm. I can hear a three compartment pericardial friction rub. I cannot feel her PMI. S1, S2 are normal. Abdomen: Soft. Nontender. Bowel sounds are positive. There is no hepatomegaly and no costovertebral angle (CVA) tenderness. Extremities: Show no pretibial edema. No calf tenderness. No differential swelling of the upper extremities. Skin: Warm, dry and perfused. Without cyanosis or mottling, including that of the nail beds and knees. Neurologic: Shows II-XII intact along with gross motor and gross sensation intact. Gait is not tested. Psychiatric shows her to be awake, alert, and oriented times three with appropriate mood and affect and conversational. Her white count is 7.8 with hemoglobin and hematocrit of 11.4 and 34.8 respectively with a platelet count of 325. Differential shows 71% neutrophils, 18% lymphocytes, 6% monocytes. There are no immature forms and no toxic granulations. Her chemistries show normal electrolytes with a BUN and creatinine of 21 and 0.93. Calcium is 8.9 with a glucose of 128. AST and ALT are 40 and 21 respectively with a troponin less than 0.02. BNP is 401 with an albumin of 3.4 and a TSH of 2. Urinalysis shows no leukocyte esterase with 5 white cells and 1+ urine bacteria. Chest CT confirms the pericardial effusion which measures 3 cm posterolaterally. There is a 1 cm anterior component to it. There is paratracheal lymphadenopathy with the largest paratracheal node measuring 1.5 cm with a lucent center. Lung windows do not show any lung masses. Parenchyma looks to be intact. Adrenals are intact as is the liver. Pancreas is also intact. The best window for tube pericardiostomy looks to be in the 6th intercostal space anteriorly just above the seventh rib. IMPRESSION: 1. Pericardial effusion, possibly infective. 2. Hypertension. 3. Atrial fibrillation with rapid ventricular response. 4. Asthma. 5. Anxiety. 6. Depression. PLAN AND DISCUSSION: It should be noted her echocardiogram shows some compression of the right ventricle free wall, although the images are rather difficult. Nonetheless, she has a very large pericardial effusion and I will therefore proceed to drainage. I suspect her atrial fibrillation is secondary to epicardial irritation from her pericarditis. Once draining the fluid, will send it off for the requisite studies. I am fairly confident that she will reconvert on her own once the irritation of the pericardium is relieved. I suggest that until we get cultures back we treat her as a bacterial pericarditis with gram positives being high on the list of suspected organisms. I do note that she does not have any leukocyte esterase and she only has 1+ urine bacteria. I do not think this is going to prove to be a gram negative pericarditis. We should also do a rudimentary immunological workup to include an ANDREA and RA.
--- NOTE | 2017-03-01 11:19 | RO ---
DATE OF PROCEDURE: 02/28/2017 PREPROCEDURE DIAGNOSIS: Pericardial effusion. POSTPROCEDURE DIAGNOSIS: Pericardial effusion. PROCEDURE: Tube pericardiostomy and pericardiocentesis. SURGEON: David Salas MD RUG FRAME MOUNTER: ANESTHESIA: DESCRIPTION OF PROCEDURE: After obtaining informed consent and having the operating room on standby, the patient was prepped and draped in the usual sterile fashion. Moderate sedation was given with eventually 6 mg of Versed. The point that was measured on the CAT scan was marked, and the pericardial effusion was confirmed to be just beneath it by echocardiography. By guiding the needle in the same angle as the probe, dark brown fluid was obtained. A wire was placed. The wire could be seen within the pericardium. The tract was dilated, and a pericardiostomy tube was placed after both dilating the tract with a hemostat and with a dilator. 700 mL of brownish-red fluid was eluded from the chest. The echocardiogram confirmed that the pericardial effusion had disappeared. Specimens were sent for the requisite bacteriologies, chemistries, cytologies, and cell counts. Pericardiostomy tube was sutured to the chest wall with two 3-0 silk sutures. The patient tolerated the procedure well. [facility]ITALDheeraj
--- NOTE | 2017-03-01 11:32 | REP ---
Chest two views HISTORY: Pericardial effusion Comparison: 02/28/2017 The lungs are clear. The cardiac silhouette is enlarged. The pulmonary vasculature is normal in appearance. The bony structure is intact. IMPRESSION: Cardiomegaly. Signed by Thomas Jay MD 03/01/2017 11:23 A
--- NOTE | 2017-03-01 13:27 | IPN ---
DATE: 03/01/2017 Ms. Mc is feeling so much better today than she did yesterday when she came in. Nearly 100 mL of pleural fluid has been extracted from her pericardium. She is complaining of very little pain at the tube pericardiostomy site. Her vital signs show a heart rate of 72 to 68 in a sinus rhythm with a respiratory rate of 18 to 20 without the use of accessory muscles, who is 94 to 96% saturated on room air and whose blood pressure is ranging between 102/55 to 126/59. Her maximum temperature (t-max) has been 100.2 and now 98.4. Her intake and output for the past 24 hours has been recorded as 2500 in and 500 out for a positivity of 2000 mL. There is no air leak from the tube pericardiostomy and it has put out 66 mL in the past 12 hours. PHYSICAL EXAMINATION: LUNGS: Her lungs show normal vesicular sounds without wheezes, rhonchi or rales. Percussion notes are full to the diaphragm. CARDIAC EXAM: Without murmurs and clicks, but I do hear a pericardial friction rub. I cannot feel her point of maximum impulse (PMI). S1, S2 are normal. ABDOMEN: Soft, nontender. Bowel sounds positive. There is no hepatomegaly. No costovertebral angle tenderness. EXTREMITIES: Show no pretibial edema. No calf tenderness. No differential swelling of the upper extremities. SKIN: Warm, dry and perfused without cyanosis or mottling, including that of the nail beds and knees. NECK: Supple. There is no jugular venous distention. No subcutaneous emphysema. Trachea is midline. MOUTH: Shows her mucous membranes to be pink and moist. Lips and commissures without lesions. There is no thrush. EYES: Show her pupils to be equal and reactive. Extraocular motion intact. Sclerae anicteric. NEUROLOGIC: Shows II through XII intact with gross motor and gross sensation intact. Gait is not tested. PSYCHIATRIC: Shows her to be awake and alert, oriented times three with appropriate mood and affect and conversational. Her white count today is 7.1 with a hemoglobin and hematocrit of 10.3 and 32.5 and a platelet count of 283. Chemistries today show normal electrolytes with a BUN and creatinine of 19 and 0.85 with a glucose of 106 and a calcium of 8.2 with corresponding albumin yesterday of 3.4. Her blood gases today show a pH of 7.38, PCO2 of 33, PO2 of 79 with a base excessive -5.2. Her pleural fluid has come back with a pH of 7.49, LDH of 1902, with a corresponding serum LDH of 160. Her fluid glucose is 85. There are 1569 nucleated cells, 84% of which are neutrophils, 11% lymphocytes, 1% are eosinophils and 3% are monocytes. This looks to be an exudative neutrophilic effusion. The pericardial fluid does not show any organisms by gram stain. IMPRESSION: 1. Pericardial effusion, exudative and neutrophilic. 2. Impending tamponade, now resolved. 3. Hypertension. 4. Asthma. 5. Anxiety. 6. Depression. 7. Atrial fibrillation with rapid ventricular response, now resolved. PLAN AND DISCUSSION: I will keep her tube pericardiostomy at least another day. She is being treated with antibiotics consisting of levofloxacin and vancomycin. We will continue her on that course and wait for actual culture results. Her ANDREA is pending. Rheumatoid factor is negative at less than 10.
[2017-03-01] MEDS ORDERED: SLF 3 ML SYR IV PRN (14:30)
--- NOTE | 2017-03-01 18:26 | CR ---
DATE: 02/28/2017 REFERRING PROVIDER: Dr. Padron REASON FOR CONSULTATION: Pericardial effusion noted on chest CT. HISTORY OF PRESENT ILLNESS: A 56-year-old woman with a history of hypertension as well as hyperlipidemia went to an urgent care center today because of progressive shortness of breath, which she thinks started about two weeks ago. She denies any fever at home. She was having some cold sweat. She was found to be in atrial fibrillation, and she was referred to the emergency room (ER) for further management. Upon arrival, her vital signs revealed a blood pressure of 161/84, and her pulse rate was reported to be 161. She was started on oxygen, she was given intravenous (IV) Lopressor 5 mg, and her blood pressure dropped to about 84 mm of mercury. She was dizzy and was given 500 mL bolus of normal saline. When I was at bedside, her blood pressure was 120 mm of mercury systolic with a pulse of about 120 beats per minute, atrial fibrillation. In the process, she had a chest CT, and it revealed no infiltrates or pleural effusion but large pericardial effusion, and echocardiogram was recommended. There was hepatosplenomegaly. Her chest x-ray revealed cardiomegaly; otherwise unremarkable. She had a right shoulder x-ray done because of pain, and it revealed degenerative joint disease. A limited ultrasound of the abdomen was done, and it revealed enlarged liver with fatty infiltration. She denies any nausea, vomiting, diarrhea, melena, or hematemesis. She has a cough. She does have a history of asthma, and she thinks her shortness of breath was related to that. She also was having orthopnea. She denies any palpitations. There is no focal manifestation. There is no active swelling or redness of the joints. She denies any rash. PAST MEDICAL HISTORY: Positive for: 1. Hypertension. 2. Hyperlipidemia. 3. Asthma. There is no history of diabetes mellitus, thyroid disorders, kidney disease, known liver disease, lupus, rheumatoid arthritis. There is no history of coronary artery disease, significant valvular heart disease, prior history of atrial fibrillation, cardiomyopathy, cerebrovascular accident (CVA), sudden cardiac . SURGICAL HISTORY; Positive for: 1. section. 2. Hernia repair. 3. Cholecystectomy. MEDICATION AT HOME: - lisinopril 10 mg by mouth twice a day - sertraline 100 mg by mouth daily - buspirone 7.5 mg by mouth daily - Symbicort 160//4.5 one puff twice a day - albuterol two puffs every 4 hours as needed - metoprolol tartrate 25 mg by mouth twice a day - cetirizine 5 mg by mouth daily - vitamin E 8000 units by mouth daily - vitamin B complexes - vitamin D - vitamin C - aspirin 325 mg daily SOCIAL HISTORY: Patient denies any smoking or illicit drugs. On occasion, she has a drink of alcoholic beverage. 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 She has a daughter who was in the room with in the ER. ALLERGIES: Latex, PENICILLIN, SULFA DRUGS. ADVANCE DIRECTIVES: Patient is a full code. PHYSICAL EXAMINATION: Patient is alert and oriented with mild shortness of breath. Her last vital signs reveal a blood pressure of 141/93 with a pulse of 123, respirations 20, and her maximum temperature is 97.6 degrees Fahrenheit. Her oxygen saturation varied between 93 up to 97%. HEENT: Head is normocephalic. Fundus examination was not done. NECK: Supple, and I could not appreciate any jugular venous distention (JVD) or carotid bruits. LUNGS: Did not reveal any wheezing or crackles. HEART: Revealed irregularly irregular heart sounds, tachycardic. The point of maximal impulse (PMI) is not displaced. There is no rub. I could not appreciated any pulsus paradoxus. ABDOMEN: Protuberant but unremarkable. Soft. EXTREMITIES: Revealed no significant pedal edema. NEUROLOGICAL: Grossly is negative for focal deficit. LABORATORY DATA: CBC revealed a WBC of 7.8, hemoglobin 11.4, hematocrit 34.8, and platelets 325,000. PT is 38.7. BMP revealed a sodium of 136, potassium 3.8, chloride 105, CO2 of 19, BUN 21, creatinine 0.93, GFR more than 60, fasting glucose 128, calcium 8.9. Serum magnesium is 1.8. Liver enzymes revealed a total BUN of 1.3, AST 40, ALT 21, alkaline phosphatase 186, total protein 8.5, albumin 3.4. TSH is 2.0 and free T4 of 3.0. Serum BNP is 401. Serum troponin is less than 0.02. Urinalysis revealed trace ketone, 5 WBC, 2 RBC, and +1 bacteria. Blood culture and urine culture are pending. Respiratory virus panel also pending. Electrocardiogram done today revealed atrial fibrillation at a rate of 156 beats per minute, mild , nonspecific ST-T abnormalities. IMPRESSION: 1. A 56-year-old woman with a 2-week history of progressive shortness of breath came to the hospital because she was not feeling better, so went to urgent care center because she was not feeling better, then transferred to the hospital for further evaluation. She was found to have a large pericardial effusion. There was no clear evidence of cardiac tamponade, but patient has underlying atrial fibrillation. In some views, these seemed to be mildly enlarged with minimal inundation noted on the free wall in the short axis view toward the base of the left ventricle. The etiology is not quite clear. There is on report of fevers or chills. There is report of fever, but in view of the duration of her symptoms, it could be something benign. Thyroid disease was ruled out. In the future, an infectious process will need to be ruled out but unlikely to be bacterial in origin, probably viral; however, a malignant process will need to be ruled out, and for this reason patient will benefit from a pericardiocentesis or a pericardial window, and case was discussed with Dr. Salas, who is actually seeing the patient at this present time. They both were discussed with her as well as her daughter, who is in the room. Once again, I doubt it is malignancy, but it cannot be entirely ruled out. 2. History of hypertension. 3. History of hyperlipidemia. 4. Newly diagnosed atrial fibrillation that could be related to the underlying atrial fibrillation. She has no significant valvular heart disease. Her left atrium appeared to be mildly enlarged. She probably does have some underlying sleep apnea or left ventricular diastolic dysfunction. 5. Mild anemia. 6. Abnormal urinalysis (UA). Urine culture and blood culture are pending. It was a pleasure to participate in the care of Mrs. Constance Hart for her underlying cardiac condition. I will continue to manage her along with you. Tomorrow she will be seen by Dr. Simms.
--- NOTE | 2017-03-01 18:51 | ECGEPIP ---
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
[2017-03-01] MEDS ORDERED: LevoFLOXacin IV 500 MG in APPROPRIATE DILUENT 1 EA IV SCH (20:00)
[2017-03-01] MEDS: SLF 3 ML SYR IV SCH (21:46)
[2017-03-02] VITALS (9 sets, daily range): BP systolic 93–157; BP diastolic 54–74
[2017-03-02] MEDS: LEVALBUTEROL 1.25 MG/0.5 ML CONCENTRATE NEB NEB SCH ×4 (01:31→20:00)
[2017-03-02] MEDS: ONDANSETRON 4MG/2ML VIAL (J2405) IV PRN ×2 (04:39→16:06)
[2017-03-02 04:55] LABS: MEAN CORPUSCULAR HEMOGLOBIN 30.7 pg (27.0-33.0); MEAN CORPUSCULAR HGB CONC 32.5 g/dl (32.0-36.5); MEAN CORPUSCULAR VOLUME 94.5 fl (80.0-96.0); RED CELL DISTRIBUTION WIDTH 13.4 % (11.5-14.5); WHITE BLOOD COUNT 7.3 K/mm3 (4.0-10.0)
[2017-03-02 04:57] LABS: CREATININE FOR GFR 1.27 MG/DL (0.55-1.02); GLOMERULAR FILTRATION RATE 46.7 (>51); MAGNESIUM LEVEL 2.1 MG/DL (1.8-2.4); POTASSIUM SERUM 4.4 MEQ/L (3.5-5.1)
[2017-03-02] MEDS: SLF 3 ML SYR IV SCH ×3 (05:04→21:12)
[2017-03-02] MEDS: KETOROLAC 30 MG/ML VIAL (J1885) IV SCH (05:04)
[2017-03-02] MEDS ORDERED: ACETAMINOPHEN TAB 650MG DOSE (2X325MG) PO ONE (06:45)
[2017-03-02] MEDS: LIDOCAINE 5% OINT 30 GM TOP SCH ×3 (06:45→21:12)
[2017-03-02] MEDS ORDERED: NS 1,000 ML IV SCH (06:45)
--- NOTE | 2017-03-02 07:51 | IPNPDOC ---
Subjective Date Seen The patient was seen on 03/02/17. Subjective Chief Complaint/HPI The patient is a 56-year-old female admitted with a reason for visit of Artial Fibrillation With Rvr. Events since last encounter Patient was seen this morning in the ICU. She reports having a quick episode of nausea overnight, but it resolved "as quickly as it came". No emesis. She does continue to report some right shoulder pain, but it is a little better this morning than yesterday. States that the ice helps. No chest pain/pressure. Breathing is stable. She denies any increased SOB. No trouble urinating, no abd pain. Has not had a BM yet. Objective Physical Examination General Exam: Positive: Alert, Cooperative, No Acute Distress Eye Exam: Positive: Conjunctiva & lids normal, EOMI, Negative: Sclera icteric ENT Exam: Positive: Atraumatic, Mucous membr. moist/pink, Pharynx Normal Neck Exam: Positive: Supple, Negative: thyromegaly Chest Exam: Positive: Clear to auscultation, Normal air movement Heart Exam: Positive: Rate Normal, Regular Rhythm, Normal S1, Normal S2, Negative: Murmurs Abdomen Exam: Positive: Normal bowel sounds, Soft, Negative: Tenderness Extremity Exam: Positive: Normal pulses, Negative: Cyanosis, Edema Skin Exam: Positive: Nl turgor and temperature, Negative: Rash Neuro Exam: Positive: Normal Speech, Cranial Nerves 3-12 NL Psych Exam: Positive: Mental status NL, Mood NL, Oriented x 3 Assessment /Plan Problems (1) Pericardial effusion Status: Acute Problem Specific Plan: Monitor Clinically Problem Text: * Possibly infectious in etiology given history of fever/chills * Dr. Salas currently following * Pericardial chest tube likely to be removed today * Pericardial fluid cultures pending * She has been initiated on colchicine twice a day * Also receiving Levaquin and vancomycin * Pain medication as needed. Toradol as been dc'ed secondary to worsened renal function (2) Atrial fibrillation with rapid ventricular response Status: Acute Response to Treatment: Improving Problem Specific Plan: Monitor Clinically Problem Text: * Likely secondary to pericardial effusion vs infectious etiology * Currently in sinus rhythm, rate controlled * On Lopressor twice a day (3) Acute kidney injury Status: Acute Problem Specific Plan: Monitor Clinically Problem Text: * Total chest tube output of about 70ml in previous 24 hours * Toradol has been dc'ed * Also on vanco, trough level not yet drawn, pharm consult in place * Started on normal saline @ 150cc/hr (4) Hypertension Status: Chronic Problem Specific Plan: Monitor Clinically Problem Text: * Blood pressure stable * On Lopressor (5) Right shoulder pain Status: Chronic Problem Specific Plan: Monitor Clinically Problem Text: * Pain medication as needed (6) Fatty infiltration of liver Status: Chronic Problem Specific Plan: Monitor Clinically Problem Text: * Seen on right upper quadrant ultrasound performed on 02/28/17 * AST and bilirubin mildly elevated on admission (7) Asthma Status: Chronic Problem Specific Plan: Monitor Clinically Problem Text: * Continue Symbicort and albuterol as needed (8) Allergic rhinitis Status: Chronic Problem Text: * Continue with cetirizine Plan/VTE VTE Prophylaxis Ordered?: Yes (heparin) VS, I&O, 24H, Fishbone Vital Signs/I&O Vital Signs Date Time Temp Pulse Resp B/P (MAP) Pulse Ox O2 Delivery O2 Flow Rate FiO2 03/02/17 06:00 62 18 94 Nasal Cannula 1.0 03/02/17 04:00 97.9 116/62 (80) I&O- Last 24 Hours up to 6 AM 03/02/17 05:59 Intake Total 2830 ml Output Total 1671 ml Balance 1159 ml Laboratory Data CBC/BMP Laboratory Tests 03/02/17 04:25 Red Blood Count 3.24 L, Mean Corpuscular Volume 94.5, Mean Corpuscular Hemoglobin 30.7, Mean Corpuscular Hemoglobin Concent 32.5, Red Cell Distribution Width 13.4, Calcium Level 9.0 Microbiology Microbiology 02/28/17 Blood Culture - Preliminary, Resulted No growth after 24 hours . All specim... 02/28/17 Blood Culture - Preliminary, Resulted No growth after 24 hours . All specim... 02/28/17 Body Fluid Culture, Received Pending 02/28/17 Acid Fast Stain, Received Pending 02/28/17 Mycobacterial Culture, Received Pending 02/28/17 Fungal Smear, Received Pending 02/28/17 Fungal Culture, Received Pending 02/28/17 Gram Stain - Final, Resulted 02/28/17 Anaerobic Culture, Resulted Pending 02/28/17 Respiratory Virus Panel (PCR) (MÓNICA), Ordered Pending MANDO SMILEY DO March 02, 2017 07:51
--- NOTE | 2017-03-02 08:10 | IPN ---
DATE: 03/02/2017 Mrs. Mc had a good night. She complains about pain in her right shoulder that is aggravating by changing position or taking deep breath but otherwise feels well. She has been maintaining sinus rhythm. Has been afebrile and did not have any significant events on telemetry. The output from the pericardial tube yesterday was 66 mL. Vital signs: Blood pressure 116/62, heart rate 50s and 60s. She is afebrile. Saturation 94% on 1 liter of oxygen. Fluid balance yesterday was about 2.5 liters positive. Weight is 112.4 kg. She is alert and oriented and appropriate. Her JVP is not up. Lungs are clear. Heart exam reveals regular rhythm. I do not appreciate any rub. Abdomen is obese but soft. There is no edema. Neurologically she is intact. LABORATORY: CBC: WBC count 7.3, hemoglobin 9.9, hematocrit 30.6 and platelet count 286,000. Basic metabolic panel: Sodium 133, potassium 4.4, creatinine 1.3 for GFR 46 and glucose 101. Several sets of cardiac enzymes were negative. Rheumatoid factor came back negative. ANDREA screen is still pending. ASSESSMENT/PLAN: Mrs. Mc is a 56-year-old female who presented to the emergency room with shortness of breath and was in atrial fibrillation with RVR. It was found that she has underlying large pericardial effusion that was drained by Dr. Salas. The output from the drain is very low and I expect that it will be pulled out later today. The whole picture is highly suggestive of viral pericarditis. The cytology from the pericardial effusion is still pending but my suspicion for malignant etiology is quite low. I did start the patient on colchicine yesterday which is well tolerated and she does not have any diarrhea. She also has been receiving non-steroidal anti-inflammatory drugs (NSAID)s, principally Toradol. Her creatinine is a little bit elevated today so probably would be a good idea to limit the dosing. I do expect that she will be able to go home within a day or two.
[2017-03-02] MEDS: SYMBICORT 160/4.5MCG INHALER 6GM INH SCH ×2 (08:32→19:36)
[2017-03-02] MEDS: METOPROLOL TART 25 MG TABLET PO SCH ×2 (09:00→21:13)
[2017-03-02] MEDS: MOM 30ML SUSPENSION UDC PO SCH (09:00)
[2017-03-02] MEDS: COLCHICINE 0.6 MG TAB PO SCH ×2 (09:18→21:10)
[2017-03-02] MEDS: CETIRIZINE (ZyrTEC) 5 MG/5 ML UDC DYE FREE PO SCH (09:18)
[2017-03-02] MEDS: SERTRALINE 100 MG TAB PO SCH (09:18)
[2017-03-02] MEDS: VITAMIN D 1,000 INTERNATIONAL UNITS TABLET PO SCH (09:18)
[2017-03-02] MEDS: DOCUSATE SODIUM 100 MG CAP PO SCH ×2 (09:18→21:11)
[2017-03-02] MEDS: PANTOPRAZOLE 40MG TAB (PROTONIX) PO SCH (09:18)
[2017-03-02] MEDS: HEPARIN SOD (PORCINE) 5000 UNITS/ML VIAL SC SCH ×2 (09:19→21:12)
--- NOTE | 2017-03-02 12:47 | REP ---
TWO VIEW CHEST: Two views of the chest are performed and compared to a prior study of 03/01/2017. There is cardiomegaly and pulmonary venous hypertension. No new infiltrates are seen. Mediastinal silhouette is unchanged. Mild degenerative changes of the spine are noted. IMPRESSION: Cardiomegaly and pulmonary venous hypertension. Stable exam. Signed by Faisal Ma MD 03/02/2017 05:19 P
--- NOTE | 2017-03-02 13:36 | IPN ---
DATE: 03/02/2017 Ms. Mc has had a comfortable 24 hours. Pain at the pericardiostomy tube site is being well controlled. She is breathing well and is able to take deep breaths and is complaining of shortness of breath. Her vital signs show a maximum temperature (t-max) of 98.2 with a heart rate that ranges between 66 and 55 in a sinus rhythm, respiratory rate of 18 to 20 without the use of accessory muscles, who is 96% saturated now on room air and whose blood pressure is ranging between 101/62 to 117/59. Her intake and output over the past 24 hours has been recorded as 4190 in and 1516 out for a positivity of 2600 mL. She has taken in 300 mL of oral intake and 1100 mL in IV intake. Her pericardiostomy tube output has been 66 mL yesterday and 5 mL in the last 8 hours. PHYSICAL EXAMINATION: LUNGS: Her lungs show normal vesicular sounds. Percussion notes are full to the diaphragm. There are no wheezes, rhonchi or rales. CARDIAC EXAM: Does not show the pericardial friction rub that I heard yesterday. She is without murmurs, clicks or gallops. S1, S2 are normal. I cannot feel her point of maximum impulse (PMI). ABDOMEN: Soft, nontender. Bowel sounds positive. There is no hepatomegaly. No costovertebral angle tenderness. EXTREMITIES: Show no pretibial edema. No calf tenderness. No differential swelling of the upper extremities. SKIN: Warm, dry and perfused without cyanosis or mottling, including that of the nail beds and knees. NECK: Supple. There is no jugular venous distention. No subcutaneous emphysema. Trachea is midline. MOUTH: Shows her mucous membranes to be pink and moist. Lips and commissures without lesions. There is no thrush. EYES: Show her pupils to be equal and reactive. Extraocular motion intact. Sclerae anicteric. NEUROLOGIC: Shows II through XII intact with gross motor and gross sensation intact. Gait is not tested. PSYCHIATRIC: Shows her to be awake and alert, oriented times three with appropriate mood and affect and conversational. Her white count today is 7.3, unchanged from yesterday with a hemoglobin and hematocrit of 9.9 and 30.6, down from 10.3 and 32.5, most likely secondary to hemodilution. Platelet count is 286. Her electrolytes show a sodium of 133 with a potassium of 4.4. BUN and creatinine are 24 and 1.27, respectively. Glucose is 101 with a calcium of 9.0 and a magnesium of 2.1. All of her troponins have been less than 0.02. Her vancomycin trough is 13.5, within the therapeutic window today. ANDREA screen is still pending. I discussed the pericardial fluid yesterday, looking as if it was neutrophilic and mildly exudative. There is no new microbiology on her. Her chest x-ray today shows her lung fully expanded to the chest wall. Costophrenic angles are sharp. There is a small pneumopericardium. Chest tube has been removed today earlier this morning. IMPRESSION: 1. Pericardial effusion, exudative and neutrophilic. 2. Impending tamponade, now resolved. 3. Hypertension. 4. Asthma. 5. Anxiety. 6. Depression. 7. Atrial fibrillation with rapid ventricular response, now resolved. 8. Renal insufficiency. PLAN AND DISCUSSION: It does not look as if this is going to be a bacterial pericarditis. I suspect that after all is said and done, our thinking will be viral pericarditis as a diagnostic exclusion. We are still waiting for the ANDREA to come back. She has bumped her BUN and creatinine. I would recommend that we take her off antibiotic as there is no evidence for bacterial infection at this point in time.
--- NOTE | 2017-03-02 17:15 | CR ---
DATE OF CONSULTATION: 03/02/2017 CHIEF COMPLAINT: Right shoulder pain. REFERRING PROVIDER: Dr. Renetta Rosario. HISTORY OF PRESENT ILLNESS: Constance is a 56-year-old female who was admitted yesterday due to shortness of breath and cough. Past medical history of asthma, hypertension, chronic rhinitis, diverticulitis, hyperlipidemia. States that she began to have right shoulder pain about one week ago. Pain is described as burning in nature. Pain is aggravated when she lies on her left side or when she is standing. States she had similar pain approximately 10 years ago that responded to a steroid injection into the right shoulder joint. Denies any recent injury. The patient is seen in the intensive care unit (ICU) setting. PAST MEDICAL HISTORY: As per history of present illness (HPI). PAST SURGICAL HISTORY: section, hernia repair, cholecystectomy. SOCIAL HISTORY: Denies tobacco or illicit drug use. Occasional alcohol use. 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 FAMILY HISTORY: Grandmother with myocardial infarction ([place]) at unknown age. ALLERGIES: LATEX, PENICILLINS, and SULFA DRUGS. REVIEW OF SYSTEMS: CARDIAC: Denies chest pains or shortness of breath. GASTROINTESTINAL (GI): Reporting normal bowel movements. Denies abdominal pain. GENITOURINARY (): Reports normal urination. Denies hematuria. Remaining 11-point review of systems is negative except for complaints in HPI. PHYSICAL EXAMINATION: GENERAL: Awake, alert, pleasant. No acute distress. VITAL SIGNS: 99, 69, 18, blood pressure 122/61, oxygen saturation 95% on room air. CARDIAC: S1, S2. Normal rate and rhythm. RESPIRATORY: Lung sounds clear. Respirations nonlabored. MUSCULOSKELETAL: Right shoulder inspection - no redness or swelling. Nontender with palpation. Range of joint motion of the right arm is limited due to complaints of increased pain with elevation of right arm. NEUROMUSCULAR: Equal strong toe stripper strength bilateral hands. Sensory - normal sensation to light touch upper extremities. NECK: Range of joint motion of the neck is full without increased complaints of pain. PALPATION: Nontender over cervical axis. ASSESSMENT 1. Acute right shoulder pain. 2. Right shoulder acute arthritis exacerbation. PLAN: Recommend application of heat times 20 minutes three times daily. The patient states that Percocet makes her feel funny. Consider dosing Tylenol 650 mg three times a day. Recommend Edy-Burnette to the right shoulder three times a day. Would recommend orthopedic evaluation for intra-articular steroid injection if necessary. Thank you for allowing us to participate in the care of your patient. If you have any questions or concerns, please do not hesitate to contact me. Sincerely, Zoë Harkins, family nurse practitioner, [facility]. OLENA
[2017-03-02 18:53] LABS: CALCIUM LEVEL 8.3 MG/DL (8.5-10.1); CREATININE FOR GFR 1.14 MG/DL (0.55-1.02); GLOMERULAR FILTRATION RATE 52.9 (>51); POTASSIUM SERUM 4.1 MEQ/L (3.5-5.1)
[2017-03-02] MEDS ORDERED: INFLUENZA QUADRIVALENT PF VACCINE 0.5ML SYRINGE/VIAL (90686) IM SCH (20:45)
[2017-03-03] VITALS: BP 122/73
[2017-03-03 00:26] LABS: CALCIUM LEVEL 8.7 MG/DL (8.5-10.1); CREATININE FOR GFR 1.1 MG/DL (0.55-1.02); GLOMERULAR FILTRATION RATE 55.1 (>51); POTASSIUM SERUM 4.1 MEQ/L (3.5-5.1)
[2017-03-03] MEDS: LEVALBUTEROL 1.25 MG/0.5 ML CONCENTRATE NEB NEB SCH ×2 (02:00→07:48)
[2017-03-03 04:00] VITALS: BP 136/66
[2017-03-03 04:55] LABS: MEAN CORPUSCULAR HGB CONC 31.4 g/dl (32.0-36.5); MEAN CORPUSCULAR VOLUME 95.6 fl (80.0-96.0); RED CELL DISTRIBUTION WIDTH 13.3 % (11.5-14.5); WHITE BLOOD COUNT 5.1 K/mm3 (4.0-10.0)
[2017-03-03 05:08] LABS: CREATININE FOR GFR 1.04 MG/DL (0.55-1.02); GLOMERULAR FILTRATION RATE 58.8 (>51)
[2017-03-03 05:09] LABS: CALCIUM LEVEL 8.7 MG/DL (8.5-10.1); MAGNESIUM LEVEL 1.6 MG/DL (1.8-2.4)
[2017-03-03] MEDS ORDERED: MAG SULF 1GM/100ML (MAG RUN) 1 GM in APPROPRIATE DILUENT 1 EA IV ONE (06:00)
[2017-03-03] MEDS: SLF 3 ML SYR IV SCH (06:02)
[2017-03-03 07:23] VITALS: BP 128/65
[2017-03-03] MEDS: SYMBICORT 160/4.5MCG INHALER 6GM INH SCH (07:47)
[2017-03-03] MEDS ORDERED: MIRALAX *UNIT DOSE* 17GM PACKET PO PRN (08:30)
--- NOTE | 2017-03-03 08:42 | IPNPDOC ---
Subjective Date Seen The patient was seen on 03/03/17. Subjective Chief Complaint/HPI The patient is a 56-year-old female admitted with a reason for visit of Artial Fibrillation With Rvr. Events since last encounter She reports that she feels a little better this morning. Still has some generalized aches and right shoulder pain. States she slept well. Vitals are stable and heart rhythm is regular. She denies any fevers, chills, lightheadedness, dizziness, arturo pressure/pain, increased SOB, nausea, vomiting , abd pain. She has not had a bowel movement and bowel regimen has been increased. Objective Physical Examination General Exam: Positive: Alert, Cooperative, No Acute Distress Eye Exam: Positive: Conjunctiva & lids normal, EOMI, Negative: Sclera icteric ENT Exam: Positive: Atraumatic, Mucous membr. moist/pink, Pharynx Normal Neck Exam: Positive: Supple, Negative: thyromegaly Chest Exam: Positive: Normal air movement Heart Exam: Positive: Rate Normal, Regular Rhythm, Normal S1, Normal S2, Negative: Murmurs Abdomen Exam: Positive: Normal bowel sounds, Soft, Negative: Tenderness Extremity Exam: Positive: Normal pulses, Negative: Cyanosis, Edema Skin Exam: Positive: Nl turgor and temperature, Negative: Rash Neuro Exam: Positive: Normal Speech, Cranial Nerves 3-12 NL Psych Exam: Positive: Mental status NL, Mood NL, Oriented x 3 Assessment /Plan Problems (1) Pericardial effusion Status: Acute Response to Treatment: Improving Problem Specific Plan: Monitor Clinically Problem Text: * Possibly infectious in etiology, likely viral * Dr. Salas currently following * Pericardial chest tube was removed on 03/02 * Pericardial fluid cultures pending. Resp panel pending. Blood cultures show no growth thus far * She remains on colchicine twice a day * Antibiotics discontinued on 03/02, was on Vanco and Levaquin * CXR on 03/02 revealed cardiomegaly and pulmonary venous hypertension, no infiltrate * Pain medication as needed. Toradol was dc'ed secondary to worsened renal function (2) Atrial fibrillation with rapid ventricular response Status: Acute Response to Treatment: Improving Problem Specific Plan: Monitor Clinically Problem Text: * Likely secondary to pericardial effusion vs infectious etiology * Has remained in sinus rhythm since pericardial drainage * On Lopressor twice a day, rate controlled * Cardiology is following (3) Acute kidney injury Status: Acute Response to Treatment: Improving Problem Specific Plan: Monitor Clinically Problem Text: * Improved with normal saline * Avoid nephrotoxic meds (4) Hypertension Status: Chronic Problem Specific Plan: Monitor Clinically Problem Text: * Blood pressure stable * On Lopressor (5) Right shoulder pain Status: Chronic Problem Specific Plan: Monitor Clinically Problem Text: * Seen by pain management on 03/02, they recommend Tylenol as needed and Bengay cream, joint injection if necessary * Patient reports that ice helps and she is also receiving lidocaine ointment (6) Fatty infiltration of liver Status: Chronic Problem Specific Plan: Monitor Clinically Problem Text: * Seen on right upper quadrant ultrasound performed on 02/28/17 * AST and bilirubin mildly elevated on admission (7) Asthma Status: Chronic Problem Specific Plan: Monitor Clinically Problem Text: * Continue Symbicort and albuterol as needed (8) Allergic rhinitis Status: Chronic Problem Text: * Continue with cetirizine Plan/VTE VTE Prophylaxis Ordered?: Yes (heparin) VS, I&O, 24H, Fishbone Vital Signs/I&O Vital Signs Date Time Temp Pulse Resp B/P (MAP) Pulse Ox O2 Delivery O2 Flow Rate FiO2 03/03/17 07:23 98.0 62 20 128/65 (86) 98 Room Air 03/02/17 06:00 1.0 I&O- Last 24 Hours up to 6 AM 03/03/17 06:00 Intake Total 2620 ml Output Total 3000 ml Balance -380 ml Laboratory Data CBC/BMP Laboratory Tests 03/02/17 18:19 Calcium Level 8.3 L 03/02/17 23:57 Calcium Level 8.7 03/03/17 04:24 Calcium Level 8.7, Red Blood Count 3.19 L, Mean Corpuscular Volume 95.6, Mean Corpuscular Hemoglobin 30.0, Mean Corpuscular Hemoglobin Concent 31.4 L, Red Cell Distribution Width 13.3 Microbiology Microbiology 02/28/17 Blood Culture - Preliminary, Resulted No Growth after 48 hours. All Specime... 02/28/17 Blood Culture - Preliminary, Resulted No Growth after 48 hours. All Specime... 02/28/17 Body Fluid Culture - Final, Complete 02/28/17 Acid Fast Stain, Received Pending 02/28/17 Mycobacterial Culture, Received Pending 02/28/17 Fungal Smear, Received Pending 02/28/17 Fungal Culture, Received Pending 02/28/17 Gram Stain - Final, Complete 02/28/17 Anaerobic Culture - Final, Complete 02/28/17 Respiratory Virus Panel (PCR) (MÓNICA), Ordered Pending GME ATTESTATION GME ATTESTATION My preceptor for this patient encounter was physically present in the building during the encounter and was fully available. As needed, all aspects of the patient interview, examination, medical decision making process, and medical care plan development were reviewed and approved by the preceptor. Preceptor is aware and concurs with the plan as stated in the body of this note and will attest to such by his/her cosignature. MANDO SMILEY DO March 03, 2017 08:42
[2017-03-03] MEDS: CETIRIZINE (ZyrTEC) 5 MG/5 ML UDC DYE FREE PO SCH (08:43)
[2017-03-03] MEDS: COLCHICINE 0.6 MG TAB PO SCH (08:43)
[2017-03-03 08:44] VITALS: BP 122/59
[2017-03-03] MEDS: DOCUSATE SODIUM 100 MG CAP PO SCH (08:44)
[2017-03-03] MEDS: VITAMIN D 1,000 INTERNATIONAL UNITS TABLET PO SCH (08:44)
[2017-03-03] MEDS: SERTRALINE 100 MG TAB PO SCH (08:44)
[2017-03-03] MEDS: METOPROLOL TART 25 MG TABLET PO SCH (08:44)
[2017-03-03] MEDS: PANTOPRAZOLE 40MG TAB (PROTONIX) PO SCH (08:44)
[2017-03-03] MEDS: HEPARIN SOD (PORCINE) 5000 UNITS/ML VIAL SC SCH (08:44)
[2017-03-03] MEDS: LIDOCAINE 5% OINT 30 GM TOP SCH (08:45)
[2017-03-03] MEDS: MOM 30ML SUSPENSION UDC PO SCH (08:45)
[2017-03-03] MEDS: PERCOCET 5MG/325MG TAB PO PRN (09:23)
[2017-03-03] MEDS ORDERED: COLC1TAB5 PO (11:15)
[2017-03-03] MEDS ORDERED: NORCOTAB PO (11:17)
--- NOTE | 2017-03-03 12:41 | IPN ---
DATE: 03/03/2017 Mrs. Hart is feeling well. Her pericardial drain was removed yesterday. She still has sharp discomfort in her chest radiating towards her right shoulder. Denies any dyspnea and overall feels much improved. Blood pressure 122/59, heart rate has been in 60s. She has occasional premature ventricular contractions (PVCs) but has not had a relapse of atrial fibrillation. Saturation is 98% on room air. Weight is documented at 111.6 kg. She is alert, awake and appropriate. Her jugular venous pressure (JVP) is not elevated. Lungs are clear to auscultation with good air movement. Heart: Exam reveals regular rhythm. I do not appreciate any rub, murmur or gallop. Abdomen is soft, nontender, nontender. No peripheral edema. Neurologically intact. Lab mary, WBC count 5.1, hemoglobin 9.6, hematocrit 30.5, platelet count 282,000. Basic metabolic panel is normal but for glucose 121. Her ANDREA screen came back negative. Chest x-ray does not demonstrate any clear-cut infiltrate, pneumothorax or congestive heart failure. ASSESSMENT AND PLAN: Mrs. Hart is a 56-year lady who presented with shortness of breath and was found to be in atrial fibrillation with rapid ventricular response. The underlying mechanism was large pericardial effusion that was drained by Dr. Salas. The analysis is supportive of infectious etiology, most likely pericarditis due to viral infection. Cytology is still pending. There is nothing, though, to suggest that this would malignant in nature. We had a discussion on this topic, and I strongly encourage the patient to undergo mammogram as she never had one, and she has a family history of breast cancer. I plan to see her in followup in about 2 weeks in the office. She will be discharged on a combination of colchicine plus as needed use of nonsteroidal anti-inflammatory drugs (NSAIDS). I would not anticoagulate the patient as the atrial fibrillation was undoubtedly triggered by the pericardial irritation, and I believe that the benefits are far outweighed by risks of bleeding into pericardial space. I told the patient to call my office if there is any deterioration of the symptoms before we can see her.
--- NOTE | 2017-03-03 14:38 | REP ---
CHEST, TWO VIEWS: HISTORY: Pericardial effusion. COMPARISON: 03/02/2017 There is flask-shaped global cardiomegaly, status quo. The lung gonzales are unchanged. There are no new abnormal opacities. The osseous structures are stable and intact. IMPRESSION: Findings as described above consistent with the patient's known pericardial effusion. Signed by Christo Mello DO 03/03/2017 02:49 P
--- NOTE | 2017-03-03 15:37 | IPN ---
DATE: 03/03/2017 Mrs. Hart is breathing well and is feeling well. She is not complaining of any chest pain or discomfort. Her vital signs show a maximum temperature (T max) of 98.9 with a heart rate that ranges between 68 and 64 and is sinus rhythm, a respiratory rate of 18 to 20 without the use of accessory muscles who is 98% saturated on room air and whose blood pressure is ranging between 136/66 to 128/65. Her intake and output over the past 24 hours has been recorded as 2650 in and 2805 out for a negativity of 155 mL. Her pericardial tube was removed yesterday. She weighs 111.6 kg today compared to 112.4 kg yesterday. PHYSICAL EXAMINATION: Her lungs show normal vesicular sounds on either side without wheezes, rhonchi or rales. Percussion note is full to the diaphragm. Cardiac exam is without murmurs, clicks, gallops or rubs. I cannot feel her point of maximum impulse (PMI). S1, S2 are normal. In particular, I listened very carefully for a rub and I cannot hear one. Abdomen is soft and nontender. Bowel sounds are positive. There is no hepatomegaly. No costovertebral angle tenderness. Extremities show no pretibial edema. No calf tenderness. No differential swelling of the upper extremities. Skin is warm, dry and perfused without cyanosis or mottling, including that of the nail beds and the knees. Neck is supple. There is no jugular venous distention, no subcutaneous emphysema. Trachea is midline. Mouth shows her mucous membranes to be pink and moist. Lips and commissures without lesions. There is no thrush. Eyes show her pupils to be equal and reactive. Extraocular motions intact. Sclerae anicteric. Neurologic shows II-XII intact along with gross motor and gross sensation intact. Gait is not tested. Psychiatric shows her to be awake and alert, oriented times three with appropriate mood and affect and conversational. Her white count today is 5.1 with a hemoglobin and hematocrit of 9.6 and 30.5 and a platelet count of 287. Electrolytes are normal with a BUN and creatinine of 17 and 1.04, a glucose of 121 and a calcium of 8.7. Magnesium is 1.6. Her vancomycin was discontinued yesterday with the trough yesterday being 13.5. The ANDREA screen is negative. Her chest x-ray shows her lung fully expanded to the chest wall. Cardiac silhouette is less globular. Costophrenic angles are sharp. There are no infiltrates either on the PA view or on the lateral view. There may be some slight blunting of the right costophrenic angle posteriorly. Cultures are negative, both aerobically and anaerobically. IMPRESSION: 1. Pericardial effusion, exudative, neutrophilic. Most likely viral by exclusion. 2. Impending tamponade, resolved. 3. Hypertension. 4. Asthma. 5. Anxiety. 6. Depression. 7. Atrial fibrillation with rapid ventricular response, resolved. 8. Renal insufficiency, resolved. PLAN AND DISCUSSION: I have no objection to her going home today. I have spoken to Dr. Simms, and he will make his final decision. He plans to put her on an antiinflammatory, most likely colchicine. I will not need to see her in followup as her pericardial effusion is drained and this remains a medical treatment rather than a surgical treatment at this point in time. Should the effusion reoccur, will have to think about doing a pericardial window. I doubt that it will reoccur, however. Dr. Simms will contact me should she need surgical followup.
[2017-03-03] MEDS ORDERED: COLCHICINE 0.6 MG TAB PO SCH (21:00)
--- NOTE | 2017-03-04 13:41 | DSES ---
DATE OF ADMISSION: 02/28/2017 DATE OF DISCHARGE: 03/03/2017 CONSULTANTS: 1. Dr. David Platt, cardiothoracic surgeon. 2. Dr. Lombardo, cardiology. DISCHARGE DIAGNOSES: 1. Pleural effusion status post pericardiostomy and pericardiocentesis. 2. Impending tamponade, resolved. 3. Atrial fibrillation with rapid ventricular response, resolved. 4. Hypertension. 5. Anxiety. 6. Depression. 7. Asthma. 8. Acute kidney injury, resolved. 9. Right shoulder pain. 10. Fatty infiltration of the liver. 11. Allergic rhinitis. DISCHARGE MEDICATIONS: - [place] 1 tablet by mouth every 3 hours as needed - colchicine 0.6 mg by mouth twice daily - Ventolin inhaler 2 puffs inhaled every 4 hours as needed - albuterol nebulizer twice daily as needed - vitamin E 400 units daily - vitamin C 500 mg daily - vitamin B complex 1 tablet by mouth daily - Symbicort 1 puff inhaled twice daily - BuSpar 7.5 mg daily - cetirizine 5 mg by mouth daily - vitamin D 2000 units daily - metoprolol 25 mg by mouth twice daily - sertraline 100 mg by mouth daily - vitamin A 8000 units by mouth daily DISCONTINUED MEDICATIONS: - aspirin 325 mg daily - lisinopril 10 mg twice daily BRIEF HOSPITAL COURSE: The patient originally presented with complaints of progressive shortness of breath. She was evaluated at urgent care as she thought this was probably secondary to her asthma. She was found to be in atrial fibrillation with rapid ventricular rate and was sent to the emergency department. In the emergency department, she received metoprolol and intravenous (IV) fluids and was admitted to the hospital. The patient had also complained of fevers and chills along with the pulmonary symptoms, and for this reason, Levaquin was initiated. Respiratory panel, CT of the chest were done. She was found to have a large pericardial effusion and a stat echocardiogram was ordered. Cardiothoracic surgeon, Dr. Salas, performed a pericardiostomy and she had a chest tube in place. It was thought that her pericardial effusion was likely secondary to viral infection. Once it was drained, the patient felt better. Her atrial fibrillation spontaneously resolved and did not occur again during her hospitalization. It was felt that her atrial fibrillation was likely secondary to her pericardial effusion as well as viral illness. Antibiotics were discontinued as she was also placed on vancomycin initially. Her creatinine did increase a little bit during hospitalization, which improved with normal saline. She was complaining of right shoulder pain for which pain management was consulted. They recommended Tylenol as needed with [place]. If it persisted that she would probably benefit from joint injection. The patient did have generalized pains, which did improve with pain medication. Given her improvement, she was subsequently stable for discharge. All her other chronic medical conditions remained stable during hospitalization. LABORATORY DATA AT DISCHARGE: WBC 5.1, hemoglobin 9.6, hematocrit 30.5, platelet count 282. Sodium 137, potassium 4.0, chloride 106, carbon dioxide 21, anion gap 10, BUN 17, creatinine 1.04, GFR 58.8, fasting glucose 121, calcium 8.7, magnesium 1.6. She did receive a dose of magnesium today. MICROBIOLOGY: Blood culture showed no growth after 48 hours. Respiratory panel pending. Pericardial fluid cultures pending. IMAGING STUDIES: The patient had daily chest x-rays, which showed cardiomegaly and pulmonary venous hypertension. Shoulder x-ray revealed degenerative changes on the right. Abdominal ultrasound, performed on 02/28/2017, showed fatty infiltration of the liver. PHYSICAL EXAMINATION AT DISCHARGE: Vital signs: Temperature 98.0, pulse 62, respiratory rate 20, blood pressure 128/65, pulse oximetry 98% on room air. General: The patient is alert and oriented times three, in no acute distress. HEENT: Normocephalic, atraumatic. Extraocular muscles are intact. Pupils equal, round, reactive to light. No scleral icterus. Moist mucosa. Neck: Supple. No cervical lymphadenopathy. No thyromegaly or jugular venous distension appreciated. Heart: Normal S1, S2, regular rate and rhythm. No murmurs appreciated. Lungs: Clear to auscultation bilaterally. No rales, rhonchi or wheezing. Abdomen: Soft, nontender, nondistended. Positive bowel sounds. Extremities: No cyanosis or edema. Positive pedal pulses bilaterally. Skin: Warm and dry. No rashes noted. Neurologic: No focal deficits. Moving all extremities. DISCHARGE INSTRUCTIONS: The patient is discharged in stable condition. She is to followup with cardiology next week. Followup with her primary care physician. Followup with Dr. Salas as needed for any recurrence. Activity as tolerated. No added salt diet. She should return to the emergency department with any worsening or recurring symptoms. Followup on culture results, are still pending for her pericardial effusion. Respiratory panel was also still pending. Blood cultures are not finalized, no growth after 48 hours. TIME SPENT ON DISCHARGE: Greater than 35 minutes. My preceptor for this patient encounter was Katelyn Rosario MD. The preceptor was physically present in the building during the encounter and was fully available. As needed, all aspects of the patient interview, examination, medical decision making process, and medical care plan development were reviewed and approved by the preceptor. The preceptor is aware and concurs with the plan as stated in the body of this note and will attest to such by his/her co-signature. OLENA
== END 2017-03-03 12:35 | disposition home or self-care (01) | DRG 315 ==
LOC: M ED 16:50 → M ED INP 18:59 → M ICU 22:00
PROVIDERS: ADMIT Internal Medicine; ATTEND General Practice
PROC: 0W9D3ZX Drainage of Pericardial Cavity, Percutaneous Approach, Diagnostic (ICD-10-PCS; principal; 2017-02-28)
DX: I31.9 Disease of pericardium, unspecified (principal); N17.9 Acute kidney failure, unspecified; K57.32 Diverticulitis of large intestine without perforation or abscess without bleeding; J45.901 Unspecified asthma with (acute) exacerbation; I48.91 Unspecified atrial fibrillation; I10 Essential (primary) hypertension; F41.9 Anxiety disorder, unspecified; F32.9 Major depressive disorder, single episode, unspecified; J30.9 Allergic rhinitis, unspecified; K76.0 Fatty (change of) liver, not elsewhere classified; Z79.899 Other long term (current) drug therapy; E78.5 Hyperlipidemia, unspecified; Z88.0 Allergy status to penicillin; Z88.2 Allergy status to sulfonamides; Z91.040 Latex allergy status; Z85.3 Personal history of malignant neoplasm of breast; D64.9 Anemia, unspecified; M08.8 Other juvenile arthritis

== ENCOUNTER 2017-04-14 10:10 | Observation (INO) | payer OTHER ==
[~2017-04-14] VITALS: Ht 172.7 cm; Wt 107.4 kg
[2017-04-14] MEDS: SYMBICORT 160/4.5MCG INHALER 6GM INH SCH ×2 (09:00→21:00)
[~2017-04-14 10:10] MED LIST changes: +ALBU17IN INH; +ALBU83IN INH; +ASPI325T PO; +BUSP1TAB PO; +CETI5TAB2 PO; +COLC1TAB14 PO; +LISI10TA4 PO; +METO-346 PO; +METO25TA4 PO; +NATU400T PO; +NORCOTAB PO; +SERT-138 PO; +SYMB16INH INH; +VITA200015 PO; +VITA500T PO; +VITA80005 PO; +VITATAB11 PO
[2017-04-14] MEDS ORDERED: DIGOXIN INJ 0.5 MG/2 ML AMP (J1160) As Ordered ONE (10:37)
[2017-04-14] MEDS ORDERED: DIGOXIN INJ 0.5 MG/2 ML AMP (J1160) IV ONE (10:45)
[2017-04-14 10:46] LABS: BASO % 0.5 % (0.0-1.0); EOS # 0.3 K/mm3 (0.0-0.50); EOS % 3.6 % (0.0-3.0); LARGE UNSTAINED CELL # 0.1 K/mm3 (0.0-0.4); LYMPH # 2.9 K/mm3 (1.5-4.5); LYMPH % 29.7 % (24.0-44.0); MEAN CORPUSCULAR HEMOGLOBIN 28.2 pg (27.0-33.0); MEAN CORPUSCULAR HGB CONC 32.6 g/dl (32.0-36.5); MEAN CORPUSCULAR VOLUME 86.6 fl (80.0-96.0); MONO # 0.4 K/mm3 (0.0-0.8); MONO % 4.4 % (0.0-5.0); NEUTROPHILS # 5.8 K/mm3 (1.8-7.7); NEUTROPHILS % 60.8 % (36.0-66.0); PLATELET COUNT, AUTOMATED 414 k/mm3 (150-450); WHITE BLOOD COUNT 9.6 K/mm3 (4.0-10.0)
[2017-04-14 10:51] LABS: INR 1.08
[2017-04-14] MEDS: METOPROLOL 5 MG/5 ML VIAL IV SCH ×3 (10:53→11:53)
--- NOTE | 2017-04-14 10:59 | REP ---
Portable chest: Single view. History: Chest pain. Comparison study: March 03, 2017. Findings: EKG monitoring electrodes and oxygen delivery tubing are seen. Heart is not enlarged. Pleural angles are sharp. Pulmonary vasculature is not increased. No significant bony abnormality is appreciated. Impression: No active disease. Signed by Gunner Carlos MD 04/14/2017 10:50 A
[2017-04-14 11:23] LABS: ALBUMIN 3.8 GM/DL (3.2-5.2); ALBUMIN/GLOBULIN RATIO 0.61 (1.00-1.93); ALKALINE PHOSPHATASE 257 U/L (45-117); ALT/SGPT 23 U/L (12-78); ANION GAP 10 MEQ/L (8-16); AST/SGOT 37 U/L (15-37); BILIRUBIN,DIRECT 0.4 MG/DL (0.0-0.2); BLOOD UREA NITROGEN 7 MG/DL (7-18); CALCIUM LEVEL 9.6 MG/DL (8.5-10.1); CARBON DIOXIDE LEVEL 27 MEQ/L (21-32); CHLORIDE LEVEL 101 MEQ/L (98-107); CREATININE FOR GFR 0.71 MG/DL (0.55-1.02); FREE T4 1.32 NG/DL (0.76-1.46); GLOMERULAR FILTRATION RATE > 60.0 (>51); GLUCOSE, FASTING 172 MG/DL (70-105); POTASSIUM SERUM 3.6 MEQ/L (3.5-5.1); SODIUM LEVEL 138 MEQ/L (136-145)
[2017-04-14] MEDS ORDERED: METOPROLOL TART 25 MG TABLET PO ONE (12:30)
[2017-04-14] MEDS ORDERED: ONDANSETRON 4MG/2ML VIAL (J2405) IV PRN (12:45)
[2017-04-14] MEDS ORDERED: LISI10TA4 PO (12:52)
[2017-04-14] MEDS ORDERED: ASPI325T PO (12:52)
[2017-04-14] MEDS ORDERED: [UNRECOGNIZED DRUG - CODE] OU (12:58)
[2017-04-14] MEDS ORDERED: POTASSIUM CHLORIDE 10 MEQ SR TABLET PO ONE (13:00)
[2017-04-14] MEDS ORDERED: CETI10TA PO (13:01)
[2017-04-14] MEDS ORDERED: ALBUTEROL 90 MCG/ACT 8GM HFA INHALER INH PRN (13:30)
[2017-04-14] MEDS ORDERED: ALBUTEROL SULFATE 2.5 MG/0.5 ML INH NEB SOLN INH PRN (13:30)
[2017-04-14 13:48] LABS: MAGNESIUM LEVEL 1.3 MG/DL (1.8-2.4)
--- NOTE | 2017-04-14 13:48 | HPE ---
DATE OF ADMISSION: 04/14/2017 PRIMARY CARE PROVIDER Wilfredo VENEER SPLICER: Dr. Lombardo CHIEF COMPLAINT: Shortness of breath. HISTORY OF THE PRESENT ILLNESS: The patient is a 56-year-old female who was recently admitted here 02/28/2017 through 03/03/2017. At that time, the patient was admitted with new set atrial fibrillation secondary to pericardial effusion with impending tamponade. Dr. Salas did see the patient at the time and performed a pericardiostomy and pericardiocentesis. She was seen in consultation by Drs. Lombardo and Mendez from cardiology. It was felt that her tamponade and atrial fibrillation were related to a viral infection. She did improve and was discharged home on rate controlling agents, however, which she continued to take after discharge. She admits to me that she ran out of her metoprolol 25 mg by mouth twice a day 3 days ago and did not bother getting it refilled. She informs me that in the last 1 month, she has not followed up with any providers, including her primary are provider, Dr. Salas, or Drs. Lombardo or Mendez, when she began to feel short of breath this morning and felt palpitations, which prompted her to present to the emergency room. At the present time, the patient tells me that she is feeling significantly better with the interventions taken in the emergency room. Bedside echocardiogram was completed, did not reveal any fluid. The patient did receive metoprolol 5 mg IV every 5 minutes times three doses as well as digoxin 0.5 mg IV times one and Dr. Rebolledo of cardiology was notified and the case was discussed with him. The patient is feeling quite well. She does not feel back to normal but has no complaints at the present time. PAST MEDICAL HISTORY: Atrial fibrillation with paroxysmal atrial fibrillation. Cardiac tamponade secondary to viral infection. Hypertension. Anxiety. Depression. Fatty liver. Asthma. Allergic rhinitis. Diverticulitis. Dyslipidemia. ALLERGIES: LATEX, PENICILLIN and SULFA. PAST SURGICAL HISTORY: Pericardiostomy and pericardiocentesis. section. Hernia repair. Cholecystectomy. 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 She denies tobacco or alcohol abuse. HOME MEDICATIONS: The patient does not know her medications, but tells me there have been no changes since her recent discharge and as per the last discharge summary, her medications are: - [place] one tablet every 3 hours as needed - colchicine 0.6 mg twice a day - Ventolin inhaled two puffs every 4 hours as needed - albuterol nebulizer twice daily as needed - vitamin E 400 units - vitamin C 500 mg daily - vitamin B complex one tablet daily - Symbicort one puff inhaled twice a day - BuSpar 7.5 mg daily - cetirizine 5 mg daily - vitamin D 2000 units daily - metoprolol 25 mg twice daily, not taken the last 3 days - sertraline 100 mg daily - vitamin A 8000 units by mouth daily REVIEW OF SYSTEMS: Negative other than in the history of the present illness (HPI). FAMILY HISTORY: Noncontributory. OBJECTIVE: PHYSICAL EXAMINATION: VITAL SIGNS: Temperature 95.8, pulse 108, respiratory rate 22, blood pressure 144/102, oxygen saturation 96% on 2 liters. GENERAL: She is an obese middle-aged female sitting up on the stretcher. She does not appear to be in acute distress, but she is visibly anxious and cringes every time her sphygmomanometer inflates. Her daughter is at bedside. HEENT: Cranial nerves II-XII are grossly intact. She has moist mucous membranes. I do not appreciate elevation in central venous pressure. CARDIOVASCULAR EXAM: S1, S2, irregularly irregular. RESPIRATORY EXAM: Completely clear. ABDOMINAL EXAM: Grossly obese. EXTREMITIES: No clubbing, cyanosis or edema. LABORATORY DATA: WBC 9.6, hemoglobin 13.3, hematocrit 40.9, platelet count is 414. Chemistry panel: Sodium 138, potassium 3.6, chloride 101, bicarbonate 27, BUN 7, creatinine 0.7. One set of cardiac enzymes is negative. BNP is slightly elevated at 298. TSH is slightly elevated at 4.5. INR is 1.0. IMAGING: The patient had a chest x-ray, did not reveal any acute disease. ASSESSMENT AND PLAN: This is a 56-year-old female with atrial fibrillation with a rapid ventricular response. Problems: 1. Atrial fibrillation with a rapid ventricular response: Appears to be secondary to medication noncompliance. This was discussed at length and stressed. The patient was provided with low dose Lopressor 5 mg IV times three and also digoxin 0.5 mg. She has been started on metoprolol 25 mg by mouth twice a day. She will also continue digoxin 0.125 mg daily. There is no evidence of pericardial effusion on the bedside echo completed in the emergency room. She will be admitted to the progressive care unit. Will continue to trend her cardiac enzymes. I suspect that her rate should be able to be controlled once she is back on appropriate medication. I will replete her potassium and check a magnesium level. TSH is slightly elevated. She is certainly not hyperthyroid. Her BNP is mildly elevated; however, on clinical exam is comfortable on room air and does not have any evidence of fluid overload or pulmonary edema. 2. [place] for chronic pain and can likely continue this. 3. Asthma. She is at her baseline respiratory status. Should hold off on albuterol as she is mildly tachycardic at this time, and she does not appear to need it. 4. Anxiety. She will continue on her buspirone. 5. Allergic rhinitis. Continue with cetirizine. 6. Depression. Continue with sertraline. 7. Deep vein thrombosis (DVT) prophylaxis. The patient will be on Lovenox. DISPOSITION: The patient is admitted to the progressive care unit, observation status. I suspect she may be able to be discharged home in the next 24-48 hours should her heart rate be able to be controlled appropriately.
[2017-04-14] MEDS: SERTRALINE 100 MG TAB PO SCH (13:55)
[2017-04-14] MEDS: busPIRone 5 MG TAB PO SCH (13:55)
[2017-04-14 16:00] VITALS: BP 154/91
[2017-04-14] MEDS ORDERED: SLF 3 ML SYR IV PRN (17:00)
[2017-04-14] MEDS ORDERED: ENOXAPARIN 40 MG/0.4 ML SYRINGE (J1650) SC SCH (18:00)
--- NOTE | 2017-04-14 19:43 | ECGEPIP ---
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
[2017-04-14 20:00] VITALS: BP 159/93
[2017-04-14] MEDS: METOPROLOL TART 25 MG TABLET PO SCH (20:21)
[2017-04-14] MEDS: MAG SULF 1GM/100ML (MAG RUN) 1 GM in APPROPRIATE DILUENT 1 EA IV SCH ×2 (20:21→21:24)
[2017-04-14] MEDS: SLF 3 ML SYR IV SCH (20:21)
[2017-04-15] VITALS: BP 186/90
[2017-04-15 00:20] VITALS: BP 210/110
[2017-04-15] MEDS ORDERED: ACETAMINOPHEN TAB 650MG DOSE (2X325MG) PO PRN (01:00)
[2017-04-15] MEDS: LISINOPRIL 10 MG TAB PO SCH ×2 (01:19→08:48)
[2017-04-15 02:49] VITALS: BP 185/95
[2017-04-15 04:41] VITALS: BP 160/90
[2017-04-15] MEDS: SLF 3 ML SYR IV SCH (05:26)
[2017-04-15 05:46] LABS: ALBUMIN 3.2 GM/DL (3.2-5.2); ALKALINE PHOSPHATASE 201 U/L (45-117); ALT/SGPT 21 U/L (12-78); ANION GAP 8 MEQ/L (8-16); AST/SGOT 31 U/L (15-37); BILIRUBIN,TOTAL 1.2 MG/DL (0.2-1.0); BLOOD UREA NITROGEN 11 MG/DL (7-18); CALCIUM LEVEL 8.9 MG/DL (8.5-10.1); CARBON DIOXIDE LEVEL 26 MEQ/L (21-32); CHLORIDE LEVEL 101 MEQ/L (98-107); CREATININE FOR GFR 0.68 MG/DL (0.55-1.02); GLOMERULAR FILTRATION RATE > 60.0 (>51); GLUCOSE, FASTING 124 MG/DL (70-105); POTASSIUM SERUM 3.8 MEQ/L (3.5-5.1); SODIUM LEVEL 135 MEQ/L (136-145); TOTAL PROTEIN 8.5 GM/DL (6.4-8.2)
--- NOTE | 2017-04-15 06:53 | ECHO ---
DATE OF PROCEDURE: 04/14/2017 AGE: 56 GENDER: Female REFERRING PHYSICIAN: Dr. Melanie Hall HEIGHT: 68 inches. WEIGHT: 230 pounds. BODY SURFACE AREA: 2.17 sq m. INPATIENT: Currently in the emergency room. INDICATION: Rapid atrial fibrillation/flutter and relative hypotension. Post recent pericardial effusion drainage. MEASUREMENTS: 2D MEASUREMENTS: RV - 3.6 cm LV- 5.5 cm Septum - 1.4 cm Posterior wall - 1.4 cm Aortic root - 3.2 cm Proximal ascending aorta - 4.1 cm LA - 4.5 cm LVEF - 60% DOPPLER MEASUREMENTS: AV - 1.6 m/s LVOT - 0.96 m/s MV-E: 109 Early mitral deacceleration time 197 ms E-prime - 8.9 E/E prime ratio 12.3 PV - 1.0 m/s Early mitral deacceleration time 123 ms IVC - 1.4 cm COMMENT: Underlying atrial flutter with rapid ventricular response averaging 110 - 120 bpm at this time. Technically challenging study in light of the patient's body habitus but diagnostically useful information was still obtained. Mild to moderately dilated left atrium but normal left ventricular size. Right heart chamber sizes were normal. At least mild to moderately symmetrically thickened left ventricle. On real-time imaging from the parasternal and apical projections, left ventricular wall motion was symmetrical and normal. Marginally thickened mitral annulus but normal leaflet thickness and excursion with no posterior systolic buckling. Three equal size aortic cusps with mildly thickened cusp edges but adequate cusp separation. Normal aortic root size but the proximal ascending aorta was mildly dilated. No apparent intracardiac mass. Minuscule posterior pericardial effusion with small left pleural effusion. Color flow Doppler study taken from the parasternal and apical projection showed trace aortic, very mild mitral, very mild tricuspid and very mild pulmonic insufficiency. Guided continuous wave Doppler of her aortic valve showed a normal peak systolic velocity against LV outflow tract obstruction. Pulsed and continuous wave Doppler of her LV inflow tract taken from the apical four-chamber projection showed normal diastolic filling velocities against mitral stenosis. As we would expect, there was only early diastolic/passive filling with her atrial tachyarrhythmia. Her early mitral deceleration time was currently upper limits of normal. Using pulsed and tissue Doppler of her mitral annulus, her estimated mean left atrial pressure at this time was approximately 15 mmHg (within normal limits). Pulsed and continuous wave Doppler of her pulmonary trunk showed a normal peak systolic velocity against RV outflow tract obstruction. Her pulmonary artery acceleration time was normal against an elevated pulmonary vascular resistance. We attempted to obtain further estimate of her right ventricular systolic pressure using guided continuous wave Doppler of her tricuspid valve but could not get a clear spectral envelope. Her inferior vena cava was of normal size against an elevated central venous pressure. CONCLUSIONS: Somewhat technically difficult study in light of the patient's body habitus. Minuscule ongoing pericardial effusion with small left pleural effusion. Moderate concentric left ventricle hypertrophy with normal wall motion. Mild to moderately dilated left atrium with current estimated mean left atrial pressure upper limits of normal. Normal right heart chamber sizes and wall motion with current estimated pulmonary arterial pressure within normal limits. Normal IVC size and collapse against an elevated central venous pressure. Aortic valvular sclerosis without stenosis and only trace insufficiency. Mild mitral annular thickening with very mild insufficiency.
[2017-04-15] MEDS: SYMBICORT 160/4.5MCG INHALER 6GM INH SCH (07:25)
[2017-04-15 08:00] VITALS: BP 160/98
[2017-04-15] MEDS ORDERED: METO25TA4 PO (08:13)
[2017-04-15] MEDS ORDERED: LISI10TA4 PO (08:13)
[2017-04-15] MEDS: METOPROLOL TART 25 MG TABLET PO SCH (08:47)
[2017-04-15] MEDS: busPIRone 5 MG TAB PO SCH (08:47)
[2017-04-15 08:48] VITALS: BP 160/98
[2017-04-15] MEDS: SERTRALINE 100 MG TAB PO SCH (08:48)
--- NOTE | 2017-04-15 08:54 | ECGEPIP ---
Stationary ECG Study [facility] Test Date: 2017-04-15 Pat Name: JOSEPH KHANNA Department: Room: [place] [address] Gender: F Clinical Program Consultant: ETHAN : 1960 Requested By: AARON VILLALOBOS Order Number: [id number] Reading MD: Melvin Rushing Measurements Intervals [place] Rate: 63 P: 74 [place]: 189 QRS: 11 QRSD: 96 T: 88 QT: 430 QTc: 440 Interpretive Statements Normal sinus rhythm Probable left atrial enlargement Delayed anterior R-wave progression Nonspecific T-wave abnormalities Cannot exclude prior inferior wall myocardial infarction Compared to prior tracing of 04/14/2017, atrial fibrillation has resolved and repolarization abnormalities have improved Electronically Signed On 04-15-2017 8:54:38 EDT by Melvin Rushing
[2017-04-15] MEDS ORDERED: DIGOXIN 0.125 MG TAB PO SCH (09:00)
[2017-04-15] MEDS ORDERED: ASPIRIN 325 MG TAB PO SCH (09:00)
--- NOTE | 2017-04-15 20:58 | DSES ---
DATE OF ADMISSION: 04/14/2017 DATE OF DISCHARGE: 04/15/2017 DISCHARGE DIAGNOSIS: Paroxysmal atrial fibrillation with rapid ventricular response. SECONDARY DIAGNOSES: 1. Medical noncompliance. 2. Hypertension. 3. Anxiety 4. Pericardial effusion. 5. Depression. 6. Fatty liver. 7. Asthma. 8. Allergic rhinitis. 9. Diverticulitis. 10. Dyslipidemia. HOSPITAL COURSE: The patient is a 56-year-old female who was admitted one month ago. At that time, she was found to have new-onset atrial fibrillation with rapid ventricular response, and on a CT scan was found to have significant pericardial effusion. She was seen by cardiology at the time, and it was felt it was secondary to a viral infection. She did have impending tamponade, and did undergo pericardiostomy as well as pericardiocentesis by Dr. Salas, with good resolution of her symptoms. The patient was discharged home on metoprolol and was supposed to followup with cardiology or primary care provider. However, she did not followup with any medical providers and ran out of her metoprolol 25 mg twice a day. After three days of being without it, she began to have palpitations and shortness of breath, prompting her to present to the emergency room. In the emergency room, she was once again found to be in atrial fibrillation with rapid ventricular response. She was loaded with Lopressor 5 mg intravenous (IV) times three, and also given digoxin 0.5 mg IV times one. Shortly after being admitted to the hospitalist service in the progressive care unit, she did convert into a normal sinus rhythm. She did have an echocardiogram completed in the emergency room at the time of her admission, which revealed miniscule pericardial effusion with small left pleural effusion, moderate concentric left ventricular hypertrophy (LVH), moderately dilated left atrium, normal right heart chamber sizes, normal inferior vena cava (IVC) and collapse. Ejection fraction of approximately 60%. The patient was admitted to the progressive care unit where she was monitored overnight. She remained asymptomatic. Her symptoms did resolve. This morning she is doing well. SUBJECTIVE: The patient reports she feels great. She has no more symptoms of palpitations, shortness of breath. She would like to go home. OBJECTIVE: VITAL SIGNS: Temperature 97.6, pulse 77. Repeat EKG demonstrates normal sinus rhythm, respiratory rate 18, blood pressure 160/98 prior to medication administration. Oxygen saturation 95% on room air. GENERAL: She is an obese, middle-aged female sitting in bed in no distress. HEENT: Cranial nerves II through XII are grossly intact. She has moist mucous membranes. No elevation of central venous pressure (CVP). CARDIOVASCULAR: Regular. No distant heart sounds appreciated. She is not tachycardic. RESPIRATORY: Completely clear. No rales. ABDOMEN: Obese. EXTREMITIES: No clubbing, cyanosis or edema. LABORATORY DATA: From 04/14: WBC 9.6, hemoglobin 13.3, platelet count 414. Chemistry panel from this morning: Sodium 135, potassium 3.8, chloride 101, bicarbonate 26, BUN 11, creatinine 0.6. Magnesium level at the time of admission was 1.3. It was repleted. She had multiple sets of cardiac enzymes which were negative. She had a slightly elevated BNP at 298. Her TSH was just slightly elevated at 4.5. ASSESSMENT AND PLAN: This is a 56-year-old female with paroxysmal atrial fibrillation with rapid ventricular response. 1. Paroxysmal atrial fibrillation with rapid ventricular response. She likely had the rapid ventricular response secondary to medical noncompliance. She had been provided with metoprolol 25 mg by mouth twice a day. New prescription has been sent to her pharmacy. Compliance with medications and followup appointments has been stressed. She did convert shortly after admission. Actually I do not feel she needs any further digoxin. She was not in congestive heart failure. She does have a slightly elevated thyroid stimulating hormone (TSH) which she should followup with her primary care provider. 2. Chronic pain. Continue with [place]. 3. Asthma. She is at her baseline respiratory status. She does not require any oxygen. 4. Anxiety. She is on buspirone. 5. Allergic rhinitis. She is on cetirizine. 6. Depression. She is on sertraline. 7. Hypertension. She is on lisinopril. Renewal for this prescription was sent to her pharmacy. DISPOSITION: The patient is being discharged home to the care of her daughter. She is followup with her primary care provider (PCP) within one week and followup with cardiology within two weeks. Her activity is as tolerated. Her diet is as prior to admission. She is to return to the ER if her symptoms worsen. She was advised to strictly adhere with doctors' appointments and take all medications as prescribed. MEDICATIONS AT DISCHARGE: - Ventolin two puffs every four hours as needed for shortness of breath - albuterol nebulizers 2.5 mg twice a day as needed for shortness of breath - allergy eye drops 0.025% drops each eye daily - aspirin 325 mg daily - Symbicort 160/4.5 one puff inhaled twice a day - buspirone 7.5 mg daily - cetirizine 10 mg daily - lisinopril 10 mg twice a day - metoprolol tartrate 25 mg twice a day - sertraline 100 mg daily Greater than 30 minutes spent organizing disposition.
== END 2017-04-15 10:29 | disposition home or self-care (01) ==
LOC: M ED 11:58 → M ED INP 12:31 → M PCU 15:44
PROVIDERS: ADMIT Internal Medicine; ATTEND Internal Medicine
DX: I48.0 Paroxysmal atrial fibrillation (principal); Z91.14 Patient's other noncompliance with medication regimen; I10 Essential (primary) hypertension; F41.9 Anxiety disorder, unspecified; I31.3 Pericardial effusion (noninflammatory); F32.9 Major depressive disorder, single episode, unspecified; K76.0 Fatty (change of) liver, not elsewhere classified; J45.909 Unspecified asthma, uncomplicated; J30.9 Allergic rhinitis, unspecified; K57.32 Diverticulitis of large intestine without perforation or abscess without bleeding; E78.5 Hyperlipidemia, unspecified; Z79.899 Other long term (current) drug therapy; Z79.82 Long term (current) use of aspirin; Z88.0 Allergy status to penicillin; Z88.2 Allergy status to sulfonamides; Z91.040 Latex allergy status
CPT/HCPCS: 36415; 71010; 80048; 80053; 80076; 82550; 82553; 83735; 83880; 84439; 84443; 85025; 85610; 85730; 93005; 93041; 94640; 94760; 96372; 96374; 96375; 96376; 99285; J1160; J1650; J3475

== ENCOUNTER 2017-12-02 03:45 | Inpatient (IN) | payer OTHER ==
[2017-12-02 04:45] LABS: HEMATOCRIT 39.1 % (36.0-47.0); HEMOGLOBIN 13.3 g/dl (12.0-16.0); MEAN CORPUSCULAR HEMOGLOBIN 29.2 pg (27.0-33.0); MEAN CORPUSCULAR VOLUME 85.9 fl (80.0-96.0); PLATELET COUNT, AUTOMATED 216 10^3/uL (150-450); RED BLOOD COUNT 4.55 10^6/uL (4.00-5.40); RED CELL DISTRIBUTION WIDTH 13.8 % (11.5-14.5); WHITE BLOOD COUNT 8.3 10^3/uL (4.0-10.0)
[2017-12-02] MEDS: ONDANSETRON 4 MG ORAL DISINTEGRATING TAB (S0181) PO ×2 (05:26→14:45)
[2017-12-02 05:32] LABS: ALBUMIN/GLOBULIN RATIO 0.89 (1.00-1.93); ALKALINE PHOSPHATASE 250 U/L (45-117); ALT/SGPT 61 U/L (12-78); ANION GAP 11 MEQ/L (8-16); AST/SGOT 96 U/L (7-37); BILIRUBIN,DIRECT 0.5 MG/DL (0.0-0.2); BILIRUBIN,TOTAL 0.9 MG/DL (0.2-1.0); BLOOD UREA NITROGEN 5 MG/DL (7-18); CALCIUM LEVEL 8.9 MG/DL (8.5-10.1); CARBON DIOXIDE LEVEL 29 MEQ/L (21-32); CHLORIDE LEVEL 106 MEQ/L (98-107); CREATININE FOR GFR 0.74 MG/DL (0.55-1.30); ETHYL ALCOHOL (ETHANOL) 0.295 % (0.000-0.010); GLOMERULAR FILTRATION RATE > 60.0 (>51); GLUCOSE, FASTING 137 MG/DL (70-100); POTASSIUM SERUM 3.1 MEQ/L (3.5-5.1); SALICYLATE LEVEL < 1.7 MG/DL (5.0-30.0); SODIUM LEVEL 146 MEQ/L (136-145); TOTAL PROTEIN 8.5 GM/DL (6.4-8.2)
[2017-12-02 05:35] LABS: ACETAMINOPHEN LEVEL < 2.0 UG/ML (10.0-30.0)
[2017-12-02] MEDS: ACETAMINOPHEN TAB 650MG DOSE (2X325MG) PO (07:26)
[2017-12-02] MEDS: POTASSIUM CHLORIDE 10 MEQ SR TABLET PO (07:27)
[2017-12-02 07:28] LABS: MAGNESIUM LEVEL 1.5 MG/DL (1.8-2.4)
[2017-12-02] MEDS: SERTRALINE 100 MG TAB PO (07:54)
[2017-12-02] MEDS: METOPROLOL TART 25 MG TABLET PO ×2 (07:54→21:26)
[2017-12-02] MEDS: busPIRone 5 MG TAB PO ×2 (07:54→21:28)
[2017-12-02] MEDS: LORazepam 2 MG/ML VIAL (J2060) IV (08:28)
[2017-12-02] MEDS: MAG SULF 1GM/100ML (MAG RUN) 1 GM in APPROPRIATE DILUENT 1 EA IV (08:28)
[2017-12-02] MEDS: NS 1,000 ML IV (08:28)
[2017-12-02] MEDS: LISINOPRIL 10 MG TAB PO (09:43)
[2017-12-02] MEDS: OXAZEPAM 15 MG CAP PO ×2 (09:43→14:45)
[2017-12-02 10:56] LABS: AMPHETAMINES LEVEL URINE NEGATIVE (NEGATIVE); BARBITURATES URINE NEGATIVE (NEGATIVE); BENZODIAZEPINES URINE NEGATIVE (NEGATIVE); CANNABINOIDS URINE NEGATIVE (NEGATIVE); COCAINE METABOLITE URINE NEGATIVE (NEGATIVE); METHADONE URINE NEGATIVE (NEGATIVE); OPIATES URINE NEGATIVE (NEGATIVE); PHENCYCLIDINE URINE NEGATIVE (NEGATIVE)
[2017-12-02] MEDS ORDERED: MOM 30ML SUSPENSION UDC PO (13:00)
[2017-12-02] MEDS ORDERED: MAALOX 30 ML SUSP *UDC PO (13:00)
[2017-12-02] MEDS ORDERED: ALBUTEROL 90 MCG/ACT 8GM HFA INHALER INH (16:45)
[2017-12-02] MEDS ORDERED: ALBUTEROL SULFATE 2.5 MG/0.5 ML INH NEB SOLN INH (16:45)
[2017-12-02] MEDS: LORazepam 2 MG TAB PO (17:33)
[2017-12-02] MEDS: THIAMINE 100 MG TAB PO (17:41)
[2017-12-02] MEDS: MULTIVITAMINS/MINERALS THERAP 1 TAB PO (17:41)
[2017-12-02] MEDS: FOLIC ACID 1 MG TAB PO (17:41)
[2017-12-02] MEDS: SYMBICORT 160/4.5MCG INHALER 6GM INH (21:17)
[2017-12-02] MEDS: traZODone 50 MG TAB PO (21:27)
[2017-12-02] MEDS: ONDANSETRON 4 MG TAB (S0181) PO (21:36)
[2017-12-03] MEDS: FOLIC ACID 1 MG TAB PO (08:06)
[2017-12-03] MEDS: SYMBICORT 160/4.5MCG INHALER 6GM INH ×2 (08:06→19:55)
[2017-12-03] MEDS: SERTRALINE 100 MG TAB PO (08:06)
[2017-12-03] MEDS: MULTIVITAMINS/MINERALS THERAP 1 TAB PO (08:06)
[2017-12-03] MEDS: THIAMINE 100 MG TAB PO ×2 (08:07→19:54)
[2017-12-03] MEDS: METOPROLOL TART 25 MG TABLET PO ×2 (08:08→19:57)
[2017-12-03] MEDS: LISINOPRIL 20 MG TAB PO (08:08)
[2017-12-03] MEDS: ONDANSETRON 4 MG TAB (S0181) PO (08:08)
[2017-12-03] MEDS: busPIRone 5 MG TAB PO ×2 (08:08→19:54)
[2017-12-03] MEDS: CETIRIZINE (ZyrTEC) 10 MG TAB PO (08:08)
[2017-12-03] MEDS: ACETAMINOPHEN TAB 650MG DOSE (2X325MG) PO (08:09)
[2017-12-03] MEDS: LORazepam 2 MG TAB PO (08:16)
[2017-12-03 11:36] LABS: CONTROL LINE HCG INT CTR LINE PRESENT; HCG, SERUM QUALITATIVE NEGATIVE (NEGATIVE)
[2017-12-03 11:45] LABS: ESTIMATED AVERAGE GLUCOSE 126 MG/DL (60-110)
[2017-12-03] MEDS: traZODone 50 MG TAB PO (19:55)
[2017-12-04 08:00] LABS: ALBUMIN 3.7 GM/DL (3.2-5.2); ALBUMIN/GLOBULIN RATIO 1.03 (1.00-1.93); ALKALINE PHOSPHATASE 207 U/L (45-117); ALT/SGPT 61 U/L (12-78); ANION GAP 8 MEQ/L (8-16); AST/SGOT 87 U/L (7-37); BILIRUBIN,TOTAL 1.5 MG/DL (0.2-1.0); BLOOD UREA NITROGEN 7 MG/DL (7-18); CALCIUM LEVEL 8.2 MG/DL (8.5-10.1); CARBON DIOXIDE LEVEL 28 MEQ/L (21-32); CHLORIDE LEVEL 106 MEQ/L (98-107); CREATININE FOR GFR 0.83 MG/DL (0.55-1.30); GLOMERULAR FILTRATION RATE > 60.0 (>51); GLUCOSE, FASTING 107 MG/DL (70-100); POTASSIUM SERUM 3.9 MEQ/L (3.5-5.1); SODIUM LEVEL 142 MEQ/L (136-145); TOTAL PROTEIN 7.3 GM/DL (6.4-8.2)
[2017-12-04] MEDS: SERTRALINE 100 MG TAB PO (09:18)
[2017-12-04] MEDS: METOPROLOL TART 25 MG TABLET PO ×2 (09:18→20:31)
[2017-12-04] MEDS: FOLIC ACID 1 MG TAB PO (09:18)
[2017-12-04] MEDS: THIAMINE 100 MG TAB PO ×2 (09:18→20:30)
[2017-12-04] MEDS: MULTIVITAMINS/MINERALS THERAP 1 TAB PO (09:18)
[2017-12-04] MEDS: LISINOPRIL 20 MG TAB PO (09:18)
[2017-12-04] MEDS: busPIRone 5 MG TAB PO ×2 (09:20→20:30)
[2017-12-04] MEDS: ACETAMINOPHEN TAB 650MG DOSE (2X325MG) PO (09:23)
[2017-12-04] MEDS: SYMBICORT 160/4.5MCG INHALER 6GM INH ×2 (09:24→20:34)
[2017-12-04] MEDS: CETIRIZINE (ZyrTEC) 10 MG TAB PO (09:24)
[2017-12-04] MEDS: traZODone 50 MG TAB PO (20:30)
[2017-12-04] MEDS: SODIUM CHLORIDE NASAL 0.65% SPRAY BTL (OCEAN) (20:34)
[2017-12-05] MEDS ORDERED: UNRESOLVED CLARIFICATION ENTRY XX (00:01)
[2017-12-05 08:11] LABS: ALBUMIN 3.7 GM/DL (3.2-5.2); ALKALINE PHOSPHATASE 202 U/L (45-117); ALT/SGPT 60 U/L (12-78); ANION GAP 10 MEQ/L (8-16); AST/SGOT 84 U/L (7-37); BILIRUBIN,TOTAL 1.7 MG/DL (0.2-1.0); BLOOD UREA NITROGEN 9 MG/DL (7-18); CALCIUM LEVEL 8.4 MG/DL (8.5-10.1); CARBON DIOXIDE LEVEL 27 MEQ/L (21-32); CHLORIDE LEVEL 105 MEQ/L (98-107); CREATININE FOR GFR 0.81 MG/DL (0.55-1.30); GLOMERULAR FILTRATION RATE > 60.0 (>51); GLUCOSE, FASTING 121 MG/DL (70-100); POTASSIUM SERUM 4.1 MEQ/L (3.5-5.1); SODIUM LEVEL 142 MEQ/L (136-145); TOTAL PROTEIN 7.4 GM/DL (6.4-8.2)
[2017-12-05 09:43] LABS: HEPATITIS B SURFACE ANTIGEN NEGATIVE (NEGATIVE)
[2017-12-05] MEDS: SYMBICORT 160/4.5MCG INHALER 6GM INH (09:56)
[2017-12-05] MEDS: SODIUM CHLORIDE NASAL 0.65% SPRAY BTL (OCEAN) ×2 (09:57→16:04)
[2017-12-05] MEDS: THIAMINE 100 MG TAB PO (09:57)
[2017-12-05] MEDS: busPIRone 5 MG TAB PO (09:57)
[2017-12-05] MEDS: MULTIVITAMINS/MINERALS THERAP 1 TAB PO (09:57)
[2017-12-05] MEDS: FOLIC ACID 1 MG TAB PO (09:57)
[2017-12-05] MEDS: CETIRIZINE (ZyrTEC) 10 MG TAB PO (09:57)
[2017-12-05] MEDS: SERTRALINE 100 MG TAB PO (09:57)
[2017-12-05] MEDS: METOPROLOL TART 25 MG TABLET PO (10:01)
[2017-12-05] MEDS: LISINOPRIL 20 MG TAB PO (10:01)
[2017-12-05] MEDS: ACETAMINOPHEN TAB 650MG DOSE (2X325MG) PO (10:04)
[2017-12-05 10:05] LABS: HEPATITIS B CORE ANTIBODY IGM NEGATIVE (NEGATIVE); HEPATITIS C VIRUS ABY INDEX 0.1 INDEX (<0.8)
[2017-12-05 10:07] LABS: HEPATITIS A ANTIBODY IGM NEGATIVE (NEGATIVE)
[2017-12-05] MEDS: INFLUENZA QUADRIVALENT PF VACCINE 0.5ML SYRINGE (90686) IM (11:32)
== END 2017-12-05 17:35 | disposition home or self-care (01) | DRG 885 ==
LOC: M PSY 12-04 19:50 → M ED 03:45 → M ED INP 12:58 → M PSY 16:43
DX: F33.2 Major depressive disorder, recurrent severe without psychotic features (principal); R45.851 Suicidal ideations; F41.9 Anxiety disorder, unspecified; F10.10 Alcohol abuse, uncomplicated; Z79.899 Other long term (current) drug therapy; Z90.49 Acquired absence of other specified parts of digestive tract; R94.31 Abnormal electrocardiogram [ECG] [EKG]; J45.909 Unspecified asthma, uncomplicated; I48.0 Paroxysmal atrial fibrillation; I10 Essential (primary) hypertension; E87.6 Hypokalemia; R94.5 Abnormal results of liver function studies; Z91.040 Latex allergy status; Z88.0 Allergy status to penicillin; Z88.2 Allergy status to sulfonamides

== ENCOUNTER 2018-04-25 12:01 | Inpatient (IN) | payer OTHER ==
[2018-04-25] MEDS: ONDANSETRON 4MG/2ML VIAL (J2405) IV (12:55)
[2018-04-25] MEDS: MORPHINE 4 MG/ML 1ML VIAL/SYRINGE (J2270) IV ×5 (12:55→23:00)
[2018-04-25 12:56] LABS: BASO # 0.1 10^3/uL (0.0-0.2); BASO % 0.5 % (0.0-1.0); EOS # 0.3 10^3/uL (0.0-0.50); EOS % 1.9 % (0.0-3.0); HEMATOCRIT 36.9 % (36.0-47.0); IMMATURE GRANULOCYTE % 0.8 % (0-3.0); LYMPH # 2.4 10^3/uL (1.5-4.5); LYMPH % 17.6 % (24.0-44.0); MEAN CORPUSCULAR HEMOGLOBIN 31.1 pg (27.0-33.0); MEAN CORPUSCULAR HGB CONC 35.2 g/dl (32.0-36.5); MEAN CORPUSCULAR VOLUME 88.3 fl (80.0-96.0); MONO # 0.7 10^3/uL (0.0-0.8); MONO % 4.9 % (0.0-5.0); NEUTROPHILS # 10.1 10^3/uL (1.8-7.7); NEUTROPHILS % 74.3 % (36.0-66.0); PLATELET COUNT, AUTOMATED 337 10^3/uL (150-450); RED BLOOD COUNT 4.18 10^6/uL (4.00-5.40); RED CELL DISTRIBUTION WIDTH 12.6 % (11.5-14.5); WHITE BLOOD COUNT 13.6 10^3/uL (4.0-10.0)
[2018-04-25] MEDS: NS 1,000 ML IV ×3 (12:58→21:24)
[2018-04-25 13:15] LABS: ALBUMIN 3.7 GM/DL (3.2-5.2); ALBUMIN/GLOBULIN RATIO 0.71 (1.00-1.93); ALKALINE PHOSPHATASE 215 U/L (45-117); ALT/SGPT 39 U/L (12-78); ANION GAP 11 MEQ/L (8-16); AST/SGOT 43 U/L (7-37); BILIRUBIN,DIRECT 0.6 MG/DL (0.0-0.2); BLOOD UREA NITROGEN 17 MG/DL (7-18); CARBON DIOXIDE LEVEL 22 MEQ/L (21-32); CHLORIDE LEVEL 98 MEQ/L (98-107); CREATININE FOR GFR 1.11 MG/DL (0.55-1.30); GLOMERULAR FILTRATION RATE 54.3 (>51); GLUCOSE, FASTING 146 MG/DL (70-100); LIPASE 301 U/L (73-393); POTASSIUM SERUM 4.2 MEQ/L (3.5-5.1); SODIUM LEVEL 131 MEQ/L (136-145); TOTAL PROTEIN 8.9 GM/DL (6.4-8.2)
[2018-04-25] MEDS ORDERED: ISOVUE-370 76% 100ML VIAL (Q9967) As Ordered ×2 (13:27→19:37)
[2018-04-25 14:42] LABS: KETONE, URINE AUTO RFX TRACE mg/dL (NEGATIVE); MUCUS, URINE RFX SMALL (NEGATIVE); NITRITE, URINE AUTO RFX NEGATIVE (NEGATIVE); RBC, URINE AUTO RFX 6 /HPF (0-3); SQUAM EPITHELIAL CELL UR AURFX 1 /HPF (0-6); WBC, URINE AUTO RFX 8 /HPF (0-3)
[2018-04-25 14:45] LABS: LEUKOCYTE ESTERASE UR AUTO RFX 1+ (NEGATIVE)
[2018-04-25] MEDS: ACETAMINOPHEN 325 MG TAB PO (15:23)
[2018-04-25 16:49] LABS: LACTIC ACID SEPSIS PROTOCOL 1.7 MMOL/L (0.4-2.0)
[2018-04-25] MEDS: GASTROGRAFIN SOLUTION 30ML PO ×2 (18:21→18:53)
[2018-04-25] MEDS: CIPROFLOXACIN 400 MG in APPROPRIATE DILUENT 1 EA IV (21:24)
[2018-04-25] MEDS: ACETAMINOPHEN TAB 650MG DOSE (2X325MG) PO (22:20)
[2018-04-25] MEDS: metroNIDAZOLE 500 MG in APPROPRIATE DILUENT 1 EA IV (23:00)
[2018-04-26] MEDS: LR 1,000 ML IV ×3 (01:10→16:32)
[2018-04-26] MEDS: NORCO, ANEXSIA 5/325MG TABLET (HYDROcodone/ACETAMINOPHEN) PO ×3 (02:09→23:22)
[2018-04-26] MEDS: KETOROLAC 30 MG/ML VIAL (J1885) IV ×3 (02:09→20:44)
[2018-04-26] MEDS: metroNIDAZOLE 500 MG in APPROPRIATE DILUENT 1 EA IV ×3 (06:43→22:12)
[2018-04-26] MEDS: MORPHINE 4 MG/ML 1ML VIAL/SYRINGE (J2270) IV (06:51)
[2018-04-26] MEDS: SYMBICORT 160/4.5MCG INHALER 6GM INH ×2 (07:57→19:40)
[2018-04-26 08:32] LABS: BASO % 0.2 % (0.0-1.0); EOS # 0.1 10^3/uL (0.0-0.50); EOS % 0.7 % (0.0-3.0); HEMATOCRIT 31.7 % (36.0-47.0); HEMOGLOBIN 10.7 g/dl (12.0-15.5); IMMATURE GRANULOCYTE % 0.6 % (0-3.0); LYMPH # 1.8 10^3/uL (1.5-4.5); LYMPH % 9.7 % (24.0-44.0); MEAN CORPUSCULAR HEMOGLOBIN 30.9 pg (27.0-33.0); MEAN CORPUSCULAR HGB CONC 33.8 g/dl (32.0-36.5); MEAN CORPUSCULAR VOLUME 91.6 fl (80.0-96.0); MONO # 0.9 10^3/uL (0.0-0.8); MONO % 4.6 % (0.0-5.0); NEUTROPHILS # 15.9 10^3/uL (1.8-7.7); NEUTROPHILS % 84.2 % (36.0-66.0); PLATELET COUNT, AUTOMATED 208 10^3/uL (150-450); RED BLOOD COUNT 3.46 10^6/uL (4.00-5.40); RED CELL DISTRIBUTION WIDTH 12.9 % (11.5-14.5); WHITE BLOOD COUNT 18.8 10^3/uL (4.0-10.0)
[2018-04-26] MEDS: DOCUSATE SODIUM 100 MG CAP PO ×2 (08:35→20:44)
[2018-04-26] MEDS: CIPROFLOXACIN 400 MG in APPROPRIATE DILUENT 1 EA IV ×2 (08:36→20:45)
[2018-04-26] MEDS: METOPROLOL TART 25 MG TABLET PO ×2 (08:37→20:44)
[2018-04-26] MEDS: SERTRALINE 100 MG TAB PO (08:42)
[2018-04-26 09:08] LABS: ALBUMIN/GLOBULIN RATIO 0.86 (1.00-1.93); ALKALINE PHOSPHATASE 181 U/L (45-117); ALT/SGPT 30 U/L (12-78); ANION GAP 10 MEQ/L (8-16); AST/SGOT 38 U/L (7-37); BLOOD UREA NITROGEN 14 MG/DL (7-18); CALCIUM LEVEL 8.1 MG/DL (8.5-10.1); CARBON DIOXIDE LEVEL 23 MEQ/L (21-32); CHLORIDE LEVEL 99 MEQ/L (98-107); CREATININE FOR GFR 1.01 MG/DL (0.55-1.30); GLOMERULAR FILTRATION RATE > 60.0 (>51); GLUCOSE, FASTING 111 MG/DL (70-100); POTASSIUM SERUM 4.3 MEQ/L (3.5-5.1); SODIUM LEVEL 132 MEQ/L (136-145); TOTAL PROTEIN 6.5 GM/DL (6.4-8.2)
[2018-04-26] MEDS: ACETAMINOPHEN TAB 650MG DOSE (2X325MG) PO (09:20)
[2018-04-27] MEDS: ACETAMINOPHEN TAB 650MG DOSE (2X325MG) PO ×2 (01:06→19:32)
[2018-04-27] MEDS: METOCLOPRAMIDE INJ 10MG/2ML VIAL (J2765) IV (03:05)
[2018-04-27] MEDS: KETOROLAC 30 MG/ML VIAL (J1885) IV ×4 (03:06→22:16)
[2018-04-27] MEDS: metroNIDAZOLE 500 MG in APPROPRIATE DILUENT 1 EA IV ×3 (05:22→22:45)
[2018-04-27] MEDS: NORCO, ANEXSIA 5/325MG TABLET (HYDROcodone/ACETAMINOPHEN) PO ×2 (05:22→21:25)
[2018-04-27 05:31] LABS: BASO % 0.3 % (0.0-1.0); EOS # 0.2 10^3/uL (0.0-0.50); EOS % 1.2 % (0.0-3.0); HEMATOCRIT 29.4 % (36.0-47.0); LYMPH # 1.6 10^3/uL (1.5-4.5); LYMPH % 10.6 % (24.0-44.0); MONO # 0.8 10^3/uL (0.0-0.8); MONO % 5.1 % (0.0-5.0); NEUTROPHILS # 12.6 10^3/uL (1.8-7.7); NEUTROPHILS % 81.8 % (36.0-66.0); PLATELET COUNT, AUTOMATED 180 10^3/uL (150-450); RED BLOOD COUNT 3.23 10^6/uL (4.00-5.40); RED CELL DISTRIBUTION WIDTH 12.6 % (11.5-14.5); WHITE BLOOD COUNT 15.4 10^3/uL (4.0-10.0)
[2018-04-27 05:50] LABS: ALBUMIN 2.7 GM/DL (3.2-5.2); ALBUMIN/GLOBULIN RATIO 0.69 (1.00-1.93); ALKALINE PHOSPHATASE 158 U/L (45-117); ALT/SGPT 26 U/L (12-78); ANION GAP 10 MEQ/L (8-16); AST/SGOT 23 U/L (7-37); BILIRUBIN,TOTAL 2.2 MG/DL (0.2-1.0); BLOOD UREA NITROGEN 12 MG/DL (7-18); CALCIUM LEVEL 8.3 MG/DL (8.5-10.1); CARBON DIOXIDE LEVEL 25 MEQ/L (21-32); CHLORIDE LEVEL 100 MEQ/L (98-107); CREATININE FOR GFR 0.93 MG/DL (0.55-1.30); GLOMERULAR FILTRATION RATE > 60.0 (>51); GLUCOSE, FASTING 100 MG/DL (70-100); POTASSIUM SERUM 3.7 MEQ/L (3.5-5.1); SODIUM LEVEL 135 MEQ/L (136-145); TOTAL PROTEIN 6.6 GM/DL (6.4-8.2)
[2018-04-27] MEDS: SYMBICORT 160/4.5MCG INHALER 6GM INH ×2 (07:15→20:22)
[2018-04-27] MEDS: DOCUSATE SODIUM 100 MG CAP PO ×2 (09:00→21:25)
[2018-04-27] MEDS: LR 1,000 ML IV (09:14)
[2018-04-27] MEDS: SERTRALINE 100 MG TAB PO (09:33)
[2018-04-27] MEDS: CIPROFLOXACIN 400 MG in APPROPRIATE DILUENT 1 EA IV ×2 (09:34→21:24)
[2018-04-27] MEDS: METOPROLOL TART 25 MG TABLET PO ×2 (09:34→21:28)
[2018-04-27] MEDS: ONDANSETRON 4MG/2ML VIAL (J2405) IV (21:27)
[2018-04-28] MEDS: KETOROLAC 30 MG/ML VIAL (J1885) IV ×3 (04:51→19:04)
[2018-04-28] MEDS: LR 1,000 ML IV (05:13)
[2018-04-28] MEDS: metroNIDAZOLE 500 MG in APPROPRIATE DILUENT 1 EA IV ×3 (05:38→22:12)
[2018-04-28 06:01] LABS: HEMOGLOBIN 9.8 g/dl (12.0-15.5); MEAN CORPUSCULAR HEMOGLOBIN 30.5 pg (27.0-33.0); MEAN CORPUSCULAR HGB CONC 33.8 g/dl (32.0-36.5); MEAN CORPUSCULAR VOLUME 90.3 fl (80.0-96.0); PLATELET COUNT, AUTOMATED 183 10^3/uL (150-450); RED BLOOD COUNT 3.21 10^6/uL (4.00-5.40); RED CELL DISTRIBUTION WIDTH 12.6 % (11.5-14.5); WHITE BLOOD COUNT 12.1 10^3/uL (4.0-10.0)
[2018-04-28 06:07] LABS: ANION GAP 10 MEQ/L (8-16); BLOOD UREA NITROGEN 12 MG/DL (7-18); CALCIUM LEVEL 8.2 MG/DL (8.5-10.1); CARBON DIOXIDE LEVEL 23 MEQ/L (21-32); CHLORIDE LEVEL 101 MEQ/L (98-107); CREATININE FOR GFR 0.88 MG/DL (0.55-1.30); GLOMERULAR FILTRATION RATE > 60.0 (>51); GLUCOSE, FASTING 107 MG/DL (70-100); POTASSIUM SERUM 3.6 MEQ/L (3.5-5.1); SODIUM LEVEL 134 MEQ/L (136-145)
[2018-04-28] MEDS: SERTRALINE 100 MG TAB PO (08:16)
[2018-04-28] MEDS: METOPROLOL TART 25 MG TABLET PO ×2 (08:16→20:38)
[2018-04-28] MEDS: NORCO, ANEXSIA 5/325MG TABLET (HYDROcodone/ACETAMINOPHEN) PO ×4 (08:16→22:12)
[2018-04-28] MEDS: CIPROFLOXACIN 400 MG in APPROPRIATE DILUENT 1 EA IV ×2 (08:17→20:39)
[2018-04-28] MEDS: DOCUSATE SODIUM 100 MG CAP PO ×2 (08:17→20:38)
[2018-04-28] MEDS: SYMBICORT 160/4.5MCG INHALER 6GM INH ×2 (13:28→20:45)
[2018-04-29] MEDS: LR 1,000 ML IV (00:28)
[2018-04-29] MEDS: KETOROLAC 30 MG/ML VIAL (J1885) IV (01:16)
[2018-04-29] MEDS: metroNIDAZOLE 500 MG in APPROPRIATE DILUENT 1 EA IV ×3 (05:14→21:43)
[2018-04-29] MEDS: NORCO, ANEXSIA 5/325MG TABLET (HYDROcodone/ACETAMINOPHEN) PO ×3 (05:36→19:45)
[2018-04-29 06:55] LABS: HEMATOCRIT 29.1 % (36.0-47.0); HEMOGLOBIN 9.9 g/dl (12.0-15.5); MEAN CORPUSCULAR VOLUME 91.2 fl (80.0-96.0); PLATELET COUNT, AUTOMATED 181 10^3/uL (150-450); RED BLOOD COUNT 3.19 10^6/uL (4.00-5.40); RED CELL DISTRIBUTION WIDTH 12.9 % (11.5-14.5); WHITE BLOOD COUNT 11.2 10^3/uL (4.0-10.0)
[2018-04-29 07:08] LABS: ANION GAP 8 MEQ/L (8-16); BLOOD UREA NITROGEN 16 MG/DL (7-18); CALCIUM LEVEL 8.1 MG/DL (8.5-10.1); CARBON DIOXIDE LEVEL 25 MEQ/L (21-32); CHLORIDE LEVEL 100 MEQ/L (98-107); CREATININE FOR GFR 1.13 MG/DL (0.55-1.30); GLOMERULAR FILTRATION RATE 53.2 (>51); GLUCOSE, FASTING 139 MG/DL (70-100); POTASSIUM SERUM 3.5 MEQ/L (3.5-5.1); SODIUM LEVEL 133 MEQ/L (136-145)
[2018-04-29] MEDS: SYMBICORT 160/4.5MCG INHALER 6GM INH ×2 (09:17→21:20)
[2018-04-29] MEDS: SERTRALINE 100 MG TAB PO (10:22)
[2018-04-29] MEDS: DOCUSATE SODIUM 100 MG CAP PO ×2 (10:22→19:45)
[2018-04-29] MEDS: METOPROLOL TART 25 MG TABLET PO ×2 (10:22→19:45)
[2018-04-29] MEDS: CIPROFLOXACIN 400 MG in APPROPRIATE DILUENT 1 EA IV ×2 (10:23→19:46)
[2018-04-29] MEDS: METOCLOPRAMIDE INJ 10MG/2ML VIAL (J2765) IV (19:45)
[2018-04-30] MEDS: NORCO, ANEXSIA 5/325MG TABLET (HYDROcodone/ACETAMINOPHEN) PO ×6 (00:04→21:31)
[2018-04-30] MEDS: metroNIDAZOLE 500 MG in APPROPRIATE DILUENT 1 EA IV ×3 (05:31→23:04)
[2018-04-30 06:28] LABS: HEMATOCRIT 30.5 % (36.0-47.0); HEMOGLOBIN 10.2 g/dl (12.0-15.5); MEAN CORPUSCULAR HEMOGLOBIN 30.8 pg (27.0-33.0); MEAN CORPUSCULAR HGB CONC 33.4 g/dl (32.0-36.5); MEAN CORPUSCULAR VOLUME 92.1 fl (80.0-96.0); PLATELET COUNT, AUTOMATED 216 10^3/uL (150-450); RED BLOOD COUNT 3.31 10^6/uL (4.00-5.40); RED CELL DISTRIBUTION WIDTH 13.2 % (11.5-14.5); WHITE BLOOD COUNT 13.7 10^3/uL (4.0-10.0)
[2018-04-30 06:49] LABS: ANION GAP 10 MEQ/L (8-16); BLOOD UREA NITROGEN 12 MG/DL (7-18); CALCIUM LEVEL 8.6 MG/DL (8.5-10.1); CARBON DIOXIDE LEVEL 24 MEQ/L (21-32); CHLORIDE LEVEL 101 MEQ/L (98-107); CREATININE FOR GFR 0.85 MG/DL (0.55-1.30); GLOMERULAR FILTRATION RATE > 60.0 (>51); GLUCOSE, FASTING 104 MG/DL (70-100); SODIUM LEVEL 135 MEQ/L (136-145)
[2018-04-30] MEDS: SYMBICORT 160/4.5MCG INHALER 6GM INH ×2 (07:30→22:47)
[2018-04-30] MEDS: SERTRALINE 100 MG TAB PO (08:00)
[2018-04-30] MEDS: DOCUSATE SODIUM 100 MG CAP PO ×2 (08:00→21:31)
[2018-04-30] MEDS: CIPROFLOXACIN 400 MG in APPROPRIATE DILUENT 1 EA IV ×2 (08:01→21:31)
[2018-04-30] MEDS: METOPROLOL TART 25 MG TABLET PO ×2 (08:01→21:31)
[2018-04-30] MEDS ORDERED: ISOVUE-370 76% 100ML VIAL (Q9967) As Ordered (09:28)
[2018-04-30] MEDS: GASTROGRAFIN SOLUTION 30ML PO ×2 (09:42→10:15)
[2018-04-30] MEDS: ONDANSETRON 4MG/2ML VIAL (J2405) IV (17:41)
[2018-05-01] MEDS: NORCO, ANEXSIA 5/325MG TABLET (HYDROcodone/ACETAMINOPHEN) PO ×3 (02:37→12:01)
[2018-05-01] MEDS: metroNIDAZOLE 500 MG in APPROPRIATE DILUENT 1 EA IV (05:00)
[2018-05-01 07:24] LABS: HEMATOCRIT 29.3 % (36.0-47.0); HEMOGLOBIN 9.8 g/dl (12.0-15.5); MEAN CORPUSCULAR HEMOGLOBIN 30.4 pg (27.0-33.0); MEAN CORPUSCULAR HGB CONC 33.4 g/dl (32.0-36.5); PLATELET COUNT, AUTOMATED 251 10^3/uL (150-450); RED BLOOD COUNT 3.22 10^6/uL (4.00-5.40); RED CELL DISTRIBUTION WIDTH 13.2 % (11.5-14.5); WHITE BLOOD COUNT 12.4 10^3/uL (4.0-10.0)
[2018-05-01 07:43] LABS: ANION GAP 9 MEQ/L (8-16); BLOOD UREA NITROGEN 10 MG/DL (7-18); CALCIUM LEVEL 8.3 MG/DL (8.5-10.1); CARBON DIOXIDE LEVEL 24 MEQ/L (21-32); CHLORIDE LEVEL 100 MEQ/L (98-107); GLOMERULAR FILTRATION RATE > 60.0 (>51); GLUCOSE, FASTING 139 MG/DL (70-100); POTASSIUM SERUM 3.6 MEQ/L (3.5-5.1); SODIUM LEVEL 133 MEQ/L (136-145)
[2018-05-01] MEDS: DOCUSATE SODIUM 100 MG CAP PO (08:02)
[2018-05-01] MEDS: METOPROLOL TART 25 MG TABLET PO (08:02)
[2018-05-01] MEDS: SERTRALINE 100 MG TAB PO (08:02)
[2018-05-01] MEDS: CIPROFLOXACIN 400 MG in APPROPRIATE DILUENT 1 EA IV (08:03)
[2018-05-01] MEDS: SYMBICORT 160/4.5MCG INHALER 6GM INH (09:04)
== END 2018-05-01 12:40 | disposition home or self-care (01) | DRG 759 ==
LOC: M ED INP 04-26 00:32 → M MS5PR 04-29 09:12 → M ED 12:01
DX: N70.03 Acute salpingitis and oophoritis (principal); K57.30 Diverticulosis of large intestine without perforation or abscess without bleeding; I10 Essential (primary) hypertension; F41.9 Anxiety disorder, unspecified; F32.9 Major depressive disorder, single episode, unspecified; J45.909 Unspecified asthma, uncomplicated; Z88.0 Allergy status to penicillin; Z88.2 Allergy status to sulfonamides; Z91.040 Latex allergy status; D72.829 Elevated white blood cell count, unspecified

== ENCOUNTER → 2018-05-21 | Outpatient (REF) | payer OTHER ==
[2018-05-21 16:21] LABS: HEMATOCRIT 29.7 % (36.0-47.0); HEMOGLOBIN 9.4 g/dl (12.0-15.5); MEAN CORPUSCULAR HEMOGLOBIN 28.9 pg (27.0-33.0); MEAN CORPUSCULAR HGB CONC 31.6 g/dl (32.0-36.5); MEAN CORPUSCULAR VOLUME 91.4 fl (80.0-96.0); PLATELET COUNT, AUTOMATED 263 10^3/uL (150-450); RED BLOOD COUNT 3.25 10^6/uL (4.00-5.40); RED CELL DISTRIBUTION WIDTH 15.4 % (11.5-14.5)
[2018-05-21 16:30] LABS: ALBUMIN 3.1 GM/DL (3.2-5.2); ALBUMIN/GLOBULIN RATIO 0.91 (1.00-1.93); ALKALINE PHOSPHATASE 225 U/L (45-117); ALT/SGPT 16 U/L (12-78); ANION GAP 8 MEQ/L (8-16); AST/SGOT 28 U/L (7-37); BILIRUBIN,TOTAL 1.1 MG/DL (0.2-1.0); BLOOD UREA NITROGEN 6 MG/DL (7-18); C REACTIVE PROTEIN QUANTITATIV 3.92 MG/DL (0.00-0.30); CALCIUM LEVEL 7.7 MG/DL (8.5-10.1); CARBON DIOXIDE LEVEL 29 MEQ/L (21-32); CHLORIDE LEVEL 103 MEQ/L (98-107); CREATININE FOR GFR 0.66 MG/DL (0.55-1.30); GLOMERULAR FILTRATION RATE > 60.0 (>51); GLUCOSE, FASTING 102 MG/DL (70-100); POTASSIUM SERUM 3.9 MEQ/L (3.5-5.1); SODIUM LEVEL 140 MEQ/L (136-145); TOTAL PROTEIN 6.5 GM/DL (6.4-8.2)
[2018-05-21 17:32] LABS: ERYTHROCYTE SEDIMENTATION RATE 70 mm/hr (0-30)
== END ==
LOC: M LAB REF 15:47
DX: A49.8 Other bacterial infections of unspecified site (principal); Z87.19 Personal history of other diseases of the digestive system; Z79.2 Long term (current) use of antibiotics

== ENCOUNTER → 2018-05-27 | Outpatient (REF) | payer OTHER ==
[2018-05-27 20:05] LABS: BASO # 0.1 10^3/uL (0.0-0.2); BASO % 0.7 % (0.0-1.0); EOS # 0.3 10^3/uL (0.0-0.50); EOS % 4.4 % (0.0-3.0); HEMATOCRIT 34.1 % (36.0-47.0); HEMOGLOBIN 10.9 g/dl (12.0-15.5); IMMATURE GRANULOCYTE % 0.3 % (0-3.0); LYMPH # 2.6 10^3/uL (1.5-4.5); LYMPH % 35.7 % (24.0-44.0); MEAN CORPUSCULAR HEMOGLOBIN 28.9 pg (27.0-33.0); MEAN CORPUSCULAR VOLUME 90.5 fl (80.0-96.0); MONO # 0.5 10^3/uL (0.0-0.8); MONO % 6.1 % (0.0-5.0); NEUTROPHILS # 3.9 10^3/uL (1.8-7.7); NEUTROPHILS % 52.8 % (36.0-66.0); PLATELET COUNT, AUTOMATED 273 10^3/uL (150-450); RED BLOOD COUNT 3.77 10^6/uL (4.00-5.40); RED CELL DISTRIBUTION WIDTH 14.7 % (11.5-14.5); WHITE BLOOD COUNT 7.3 10^3/uL (4.0-10.0)
[2018-05-27 20:32] LABS: ALBUMIN 3.7 GM/DL (3.2-5.2); ALKALINE PHOSPHATASE 196 U/L (45-117); ALT/SGPT 17 U/L (12-78); ANION GAP 10 MEQ/L (8-16); AST/SGOT 31 U/L (7-37); BILIRUBIN,TOTAL 0.8 MG/DL (0.2-1.0); BLOOD UREA NITROGEN 11 MG/DL (7-18); C REACTIVE PROTEIN QUANTITATIV 1.07 MG/DL (0.00-0.30); CALCIUM LEVEL 9.2 MG/DL (8.5-10.1); CARBON DIOXIDE LEVEL 29 MEQ/L (21-32); CHLORIDE LEVEL 102 MEQ/L (98-107); CREATININE FOR GFR 0.77 MG/DL (0.55-1.30); GLOMERULAR FILTRATION RATE > 60.0 (>51); GLUCOSE, FASTING 81 MG/DL (70-100); POTASSIUM SERUM 4.7 MEQ/L (3.5-5.1); SODIUM LEVEL 141 MEQ/L (136-145); TOTAL PROTEIN 7.4 GM/DL (6.4-8.2)
[2018-05-27 22:00] LABS: ERYTHROCYTE SEDIMENTATION RATE 62 mm/hr (0-30)
== END ==
LOC: M LAB REF 19:21
DX: Z87.19 Personal history of other diseases of the digestive system (principal); A49.8 Other bacterial infections of unspecified site; Z79.2 Long term (current) use of antibiotics

== ENCOUNTER 2018-06-02 21:23 | Emergency (ER) | payer OTHER | END 2018-06-03 01:04 | disposition home or self-care (01) | LOC: M ED 21:23 | DX: K94.09 Other complications of colostomy (principal); I10 Essential (primary) hypertension; Z79.899 Other long term (current) drug therapy; Z88.0 Allergy status to penicillin; Z88.2 Allergy status to sulfonamides; Z91.040 Latex allergy status | CPT/HCPCS: 99283 ==

== ENCOUNTER → 2018-06-03 | Outpatient (REF) | payer OTHER ==
[2018-06-03 11:55] LABS: BASO # 0.1 10^3/uL (0.0-0.2); BASO % 0.8 % (0.0-1.0); EOS # 0.5 10^3/uL (0.0-0.50); EOS % 7.3 % (0.0-3.0); HEMATOCRIT 34.7 % (36.0-47.0); HEMOGLOBIN 11.3 g/dl (12.0-15.5); IMMATURE GRANULOCYTE % 0.3 % (0-3.0); LYMPH % 30.6 % (24.0-44.0); MEAN CORPUSCULAR HEMOGLOBIN 28.5 pg (27.0-33.0); MEAN CORPUSCULAR HGB CONC 32.6 g/dl (32.0-36.5); MEAN CORPUSCULAR VOLUME 87.6 fl (80.0-96.0); MONO # 0.4 10^3/uL (0.0-0.8); MONO % 6.4 % (0.0-5.0); NEUTROPHILS # 3.5 10^3/uL (1.8-7.7); NEUTROPHILS % 54.6 % (36.0-66.0); PLATELET COUNT, AUTOMATED 278 10^3/uL (150-450); RED BLOOD COUNT 3.96 10^6/uL (4.00-5.40); WHITE BLOOD COUNT 6.4 10^3/uL (4.0-10.0)
[2018-06-03 12:26] LABS: ALBUMIN/GLOBULIN RATIO 1.05 (1.00-1.93); ALKALINE PHOSPHATASE 242 U/L (45-117); ALT/SGPT 18 U/L (12-78); ANION GAP 7 MEQ/L (8-16); AST/SGOT 38 U/L (7-37); BILIRUBIN,TOTAL 0.7 MG/DL (0.2-1.0); BLOOD UREA NITROGEN 14 MG/DL (7-18); C REACTIVE PROTEIN QUANTITATIV 1.01 MG/DL (0.00-0.30); CALCIUM LEVEL 9.6 MG/DL (8.5-10.1); CARBON DIOXIDE LEVEL 28 MEQ/L (21-32); CHLORIDE LEVEL 106 MEQ/L (98-107); CREATININE FOR GFR 0.82 MG/DL (0.55-1.30); GLOMERULAR FILTRATION RATE > 60.0 (>51); GLUCOSE, FASTING 84 MG/DL (70-100); POTASSIUM SERUM 4.5 MEQ/L (3.5-5.1); SODIUM LEVEL 141 MEQ/L (136-145); TOTAL PROTEIN 7.8 GM/DL (6.4-8.2)
[2018-06-03 13:28] LABS: ERYTHROCYTE SEDIMENTATION RATE 67 mm/hr (0-30)
== END ==
LOC: M LAB REF 11:10
DX: K57.80 Diverticulitis of intestine, part unspecified, with perforation and abscess without bleeding (principal); Z87.19 Personal history of other diseases of the digestive system; A49.8 Other bacterial infections of unspecified site; Z79.2 Long term (current) use of antibiotics
CPT/HCPCS: 80053

== ENCOUNTER → 2018-06-06 | Outpatient (CLI) | payer OTHER ==
[~2018-06-06] MED LIST changes: -ACET65TA; -ALBU17IN INH; -ALBU83IN INH; -AMLO10TA; -ASPI325T PO; -BUSP1TAB PO; -CETI5TAB2; -CETI5TAB2 PO; -COLC1TAB14 PO; -FLAG500T; -FLON0.05; +GASTROGRAFIN SOLUTION 30ML (Q9963) As Ordered; +ISOVUE-370 76% 100ML VIAL (Q9967) As Ordered; -LEVA500T; -LISI10TA4 PO; -LOPR100T; -METO-346 PO; -METO25TA4 PO; -NATU400T PO; -NORCOTAB PO; -PROV90AE; -SERT-138 PO; -SYMB16INH INH; -VICO5TAB; -VITA200015 PO; -VITA500T PO; -VITA80005 PO; -VITATAB11 PO
== END ==
LOC: M RAD 08:06
DX: Z51.81 Encounter for therapeutic drug level monitoring (principal); R78.81 Bacteremia; Z79.2 Long term (current) use of antibiotics; Z87.19 Personal history of other diseases of the digestive system; K57.30 Diverticulosis of large intestine without perforation or abscess without bleeding; Z93.3 Colostomy status; R16.1 Splenomegaly, not elsewhere classified
CPT/HCPCS: Q9963

== ENCOUNTER → 2018-06-10 | Outpatient (REF) | payer OTHER ==
[2018-06-10 12:17] LABS: BASO # 0.1 10^3/uL (0.0-0.2); BASO % 0.5 % (0.0-1.0); EOS # 0.6 10^3/uL (0.0-0.50); HEMATOCRIT 36.7 % (36.0-47.0); HEMOGLOBIN 12.1 g/dl (12.0-15.5); IMMATURE GRANULOCYTE % 0.3 % (0-3.0); LYMPH # 2.5 10^3/uL (1.5-4.5); LYMPH % 26.1 % (24.0-44.0); MEAN CORPUSCULAR HEMOGLOBIN 28.4 pg (27.0-33.0); MEAN CORPUSCULAR VOLUME 86.2 fl (80.0-96.0); MONO # 0.7 10^3/uL (0.0-0.8); MONO % 6.8 % (0.0-5.0); NEUTROPHILS # 5.7 10^3/uL (1.8-7.7); NEUTROPHILS % 60.3 % (36.0-66.0); PLATELET COUNT, AUTOMATED 319 10^3/uL (150-450); RED BLOOD COUNT 4.26 10^6/uL (4.00-5.40); RED CELL DISTRIBUTION WIDTH 13.9 % (11.5-14.5); WHITE BLOOD COUNT 9.5 10^3/uL (4.0-10.0)
[2018-06-10 13:02] LABS: ALBUMIN/GLOBULIN RATIO 0.95 (1.00-1.93); ALKALINE PHOSPHATASE 277 U/L (45-117); ALT/SGPT 23 U/L (12-78); ANION GAP 9 MEQ/L (8-16); AST/SGOT 41 U/L (7-37); BILIRUBIN,TOTAL 0.7 MG/DL (0.2-1.0); BLOOD UREA NITROGEN 13 MG/DL (7-18); CALCIUM LEVEL 9.7 MG/DL (8.5-10.1); CARBON DIOXIDE LEVEL 25 MEQ/L (21-32); CHLORIDE LEVEL 105 MEQ/L (98-107); CREATININE FOR GFR 0.78 MG/DL (0.55-1.30); GLOMERULAR FILTRATION RATE > 60.0 (>51); GLUCOSE, FASTING 92 MG/DL (70-100); POTASSIUM SERUM 4.7 MEQ/L (3.5-5.1); SODIUM LEVEL 139 MEQ/L (136-145); TOTAL PROTEIN 8.2 GM/DL (6.4-8.2)
[2018-06-10 13:03] LABS: ERYTHROCYTE SEDIMENTATION RATE 67 mm/hr (0-30)
== END ==
LOC: M LAB REF 11:57
DX: K57.80 Diverticulitis of intestine, part unspecified, with perforation and abscess without bleeding (principal)

== ENCOUNTER → 2019-06-18 | Outpatient (CLI) | payer OTHER ==
[~2019-06-18] MED LIST changes: +ACET65TA; +ALBU17IN INH; +ALBU83IN INH; +AMLO10TA; +ANTIBIOTICS; +ASPI-1 PO; +ASPI-255 PO; +BUSP10TA PO; +BUSP1TAB PO; +CETI10TA PO; +CETI5TAB2; +CETI5TAB2 PO; +CIPR500T3 PO; +COLC1TAB14 PO; +FLAG500T; +FLON0.05; -GASTROGRAFIN SOLUTION 30ML (Q9963) As Ordered; +HYDR-3713 PO; +HYDR-3715 PO; -ISOVUE-370 76% 100ML VIAL (Q9967) As Ordered; +LEVA500T; +LISI10TA4 PO; +LOPR100T; +METO-346 PO; +METO25TA4 PO; +METR-265 PO; +NATU400T PO; +PROV90AE; +SERT-138 PO; +SYMB16INH INH; +TRAZ-252 PO; +VICO5TAB; +VITA200015 PO; +VITA500T PO; +VITA80005 PO; +VITATAB11 PO; +ZOLO100T PO; +[UNRECOGNIZED DRUG - CODE] OU
[2019-06-18 20:16] LABS: PERCENT SATURATION 13.2 % (13.2-45.0)
== END ==
LOC: M WUC 16:20
PROVIDERS: ATTEND Internal Medicine Cardiovascular Disease
DX: I48.0 Paroxysmal atrial fibrillation (principal)

== ENCOUNTER 2019-08-06 19:59 | Emergency (ER) | payer OTHER ==
[~2019-08-06] VITALS: Ht 172.7 cm; Wt 95.5 kg
[2019-08-06 20:55] LABS: HEMATOCRIT 40.3 % (36.0-47.0); HEMOGLOBIN 13.5 g/dl (12.0-15.5); MEAN CORPUSCULAR HEMOGLOBIN 31.3 pg (27.0-33.0); MEAN CORPUSCULAR HGB CONC 33.5 g/dl (32.0-36.5); MEAN CORPUSCULAR VOLUME 93.3 fl (80.0-96.0); PLATELET COUNT, AUTOMATED 156 10^3/uL (150-450); RED BLOOD COUNT 4.32 10^6/uL (4.00-5.40); WHITE BLOOD COUNT 7.6 10^3/uL (4.0-10.0)
[2019-08-06 21:30] LABS: ACETAMINOPHEN LEVEL < 2.0 UG/ML (10.0-30.0); ALBUMIN 4.3 GM/DL (3.2-5.2); ALT/SGPT 79 U/L (12-78); BILIRUBIN,DIRECT 0.7 MG/DL (0.0-0.2); BILIRUBIN,TOTAL 1.2 MG/DL (0.2-1.0); BLOOD UREA NITROGEN 19 MG/DL (7-18); CARBON DIOXIDE LEVEL 25 MEQ/L (21-32); CHLORIDE LEVEL 107 MEQ/L (98-107); CREATININE FOR GFR 0.94 MG/DL (0.55-1.30); ETHYL ALCOHOL (ETHANOL) 0.288 % (0.000-0.010); GLOMERULAR FILTRATION RATE > 60.0 (>51); GLUCOSE, FASTING 114 MG/DL (70-100); SALICYLATE LEVEL < 1.7 MG/DL (5.0-30.0); SODIUM LEVEL 142 MEQ/L (136-145)
[2019-08-06 21:40] LABS: AMPHETAMINES LEVEL URINE NEGATIVE (NEGATIVE); BARBITURATES URINE NEGATIVE (NEGATIVE); BENZODIAZEPINES URINE NEGATIVE (NEGATIVE); CANNABINOIDS URINE NEGATIVE (NEGATIVE); COCAINE METABOLITE URINE NEGATIVE (NEGATIVE); METHADONE URINE NEGATIVE (NEGATIVE); OPIATES URINE NEGATIVE (NEGATIVE); PHENCYCLIDINE URINE NEGATIVE (NEGATIVE)
[2019-08-07] MEDS ORDERED: ONDANSETRON 4 MG ORAL DISINTEGRATING TAB (Q0162 PER 1MG) PO ONE (05:45)
[2019-08-07 07:38] VITALS: BP 178/109
[2019-08-07] MEDS ORDERED: CETIRIZINE (ZyrTEC) 10 MG TAB PO ONE (08:00)
[2019-08-07] MEDS ORDERED: busPIRone 5 MG TAB PO ONE (08:00)
[2019-08-07] MEDS ORDERED: SERTRALINE 100 MG TAB PO ONE (08:00)
[2019-08-07] MEDS ORDERED: METOPROLOL TART 25 MG TABLET PO ONE (08:00)
[2019-08-07] MEDS ORDERED: LISINOPRIL 20 MG TAB PO ONE (08:00)
[2019-08-07 08:07] VITALS: BP 178/108
== END 2019-08-07 08:50 | disposition home or self-care (01) ==
LOC: M ED 19:59
DX: F10.10 Alcohol abuse, uncomplicated (principal); I48.91 Unspecified atrial fibrillation; I10 Essential (primary) hypertension; K76.0 Fatty (change of) liver, not elsewhere classified; J45.909 Unspecified asthma, uncomplicated; F41.9 Anxiety disorder, unspecified; F32.9 Major depressive disorder, single episode, unspecified; I31.4 Cardiac tamponade; E78.5 Hyperlipidemia, unspecified; Z79.899 Other long term (current) drug therapy; Z88.0 Allergy status to penicillin; Z88.2 Allergy status to sulfonamides; Z91.040 Latex allergy status
CPT/HCPCS: 80048; 80076; 80307; 84443; 85027; 99284; G0480; Q0162

== ENCOUNTER → 2019-12-18 | Outpatient (CLI) | payer OTHER ==
[~2019-12-18] MED LIST changes: +GASTROGRAFIN SOLUTION 30ML (Q9963) As Ordered ONE; +ISOVUE-370 76% 100ML VIAL (Q9967) As Ordered ONE
--- NOTE | 2019-12-19 08:20 | REP ---
Clinical: Abdominal pain with history of cirrhosis, diverticulosis and hernia. Technique: Axial contrast enhanced images from the lung bases to the pubic symphysis using oral (per protocol) and 100 ml Isovue 370 intravenous contrast material coronal and sagittal re-formations. Precontrast and delayed images of the abdomen obtained. Comparison: 06/06/2018. Findings: The lung bases are clear. Visualized heart and pericardium normal. Liver demonstrates a very subtle nodular contour along with recanalized umbilical vein and splenomegaly suggesting cirrhosis. No focal hepatic or splenic lesion identified. Evidence of prior cholecystectomy noted. Pancreas, bilateral adrenal glands and kidneys are normal. The patient appears to be status post status post right lower quadrant transverse colostomy and a large peristomal hernia contains nonobstructed colon and possible nonobstructing loop of small bowel along with mesenteric fat. There is no evidence for bowel obstruction. Residual colon demonstrates scattered diverticulosis without acute diverticulitis. Pelvis demonstrates normal bladder and age-appropriate uterus/adnexa. The previously noted right hemipelvic abscess has resolved. No ascites. No free air. No significant adenopathy. Abdominal aorta and vasculature without aneurysm or dissection. Skeletal structures are intact. Impression: 1. Moderate/large peristomal hernia containing nondilated colon and possible single loop of nondilated small bowel along with mesenteric fat. 2. Colonic diverticulosis without acute diverticulitis. 3. Findings to suggest cirrhosis with splenomegaly. No focal hepatic or splenic lesion identified. 4. Previously noted abscess in the right cadence pelvis has resolved. 5. No ascites, adenopathy, or focal inflammatory stranding noted. Electronically Signed by Randolph Perera MD 12/19/2019 08:11 A
== END ==
LOC: M RAD 15:54
PROVIDERS: ATTEND Surgery
DX: K74.69 Other cirrhosis of liver (principal); K57.92 Diverticulitis of intestine, part unspecified, without perforation or abscess without bleeding; K43.5 Parastomal hernia without obstruction or gangrene
CPT/HCPCS: 74178; Q9963; Q9967

== ENCOUNTER → 2020-01-31 | Outpatient (CLI) | payer OTHER ==
[~2020-01-31] MED LIST changes: -GASTROGRAFIN SOLUTION 30ML (Q9963) As Ordered ONE; -ISOVUE-370 76% 100ML VIAL (Q9967) As Ordered ONE
== END ==
LOC: M LABSMTC 10:19
PROVIDERS: ATTEND Family Medicine
DX: Z11.59 Encounter for screening for other viral diseases (principal); Z20.89 Contact with and (suspected) exposure to other communicable diseases

== ENCOUNTER → 2020-08-01 | Outpatient (CLI) | payer OTHER ==
[~2020-08-01] MED LIST changes: +VITA-243 PO; -VITA500T PO
== END ==
LOC: M LABSMTC 11:08
PROVIDERS: ATTEND Surgery
DX: Z01.812 Encounter for preprocedural laboratory examination (principal); Z20.828 Contact with and (suspected) exposure to other viral communicable diseases

== ENCOUNTER → 2020-08-26 | Outpatient (REF) | payer OTHER ==
[2020-08-26 13:24] LABS: HEMATOCRIT 34.3 % (36.0-47.0); HEMOGLOBIN 10.9 g/dl (12.0-15.5); MEAN CORPUSCULAR HEMOGLOBIN 28.6 pg (27.0-33.0); MEAN CORPUSCULAR HGB CONC 31.8 g/dl (32.0-36.5); PLATELET COUNT, AUTOMATED 225 10^3/uL (150-450); RED BLOOD COUNT 3.81 10^6/uL (4.00-5.40); WHITE BLOOD COUNT 11.2 10^3/uL (4.0-10.0)
[2020-08-26 13:28] LABS: ALBUMIN 3.9 GM/DL (3.2-5.2); BILIRUBIN,TOTAL 1.7 MG/DL (0.2-1.0); CALCIUM LEVEL 8.6 MG/DL (8.5-10.1); CHOLESTEROL RISK RATIO 4.09 (<5); CREATININE FOR GFR 1.17 MG/DL (0.55-1.30); GLOMERULAR FILTRATION RATE 50.6 (>51); POTASSIUM SERUM 3.7 MEQ/L (3.5-5.1); TOTAL PROTEIN 7.6 GM/DL (6.4-8.2)
[2020-08-26 13:33] LABS: INR 1.13; PROTHROMBIN TIME 14.8 SECONDS (12.5-14.3)
[2020-08-26 13:34] LABS: PARTIAL THROMBOPLASTIN TIME 35.8 SECONDS (24.2-38.5)
== END ==
LOC: M SFHCPLAZ 09:32
PROVIDERS: ATTEND Family Medicine
DX: K70.30 Alcoholic cirrhosis of liver without ascites (principal); I10 Essential (primary) hypertension; Z93.3 Colostomy status; Z13.220 Encounter for screening for lipoid disorders

== ENCOUNTER → 2021-01-06 | Outpatient (REF) | payer MEDICARE, OTHER ==
[~2021-01-06] MED LIST changes: +LISI10TA22 PO; -LISI10TA4 PO
[2021-01-06 12:51] LABS: BASO # 0.1 10^3/uL (0.0-0.2); BASO % 0.7 % (0.0-1.0); EOS # 0.4 10^3/uL (0.0-0.5); HEMATOCRIT 38.7 % (36.0-47.0); HEMOGLOBIN 12.8 g/dl (12.0-15.5); LYMPH # 2.8 10^3/uL (1.5-5.0); LYMPH % 41.4 % (24.0-44.0); MEAN CORPUSCULAR HEMOGLOBIN 29.3 pg (27.0-33.0); MEAN CORPUSCULAR HGB CONC 33.1 g/dl (32.0-36.5); MEAN CORPUSCULAR VOLUME 88.6 fl (80.0-96.0); MONO # 0.4 10^3/uL (0.0-0.8); MONO % 5.7 % (2.0-8.0); NEUTROPHILS # 3.1 10^3/uL (1.5-8.5); NEUTROPHILS % 46.1 % (36.0-66.0); PLATELET COUNT, AUTOMATED 171 10^3/uL (150-450); RED BLOOD COUNT 4.37 10^6/uL (4.00-5.40); WHITE BLOOD COUNT 6.7 10^3/uL (4.0-10.0)
[2021-01-06 12:55] LABS: INR 1.07; PROTHROMBIN TIME 14.1 SECONDS (12.5-14.3)
[2021-01-06 12:56] LABS: PARTIAL THROMBOPLASTIN TIME 39.2 SECONDS (24.2-38.5)
[2021-01-06 13:26] LABS: BILIRUBIN,TOTAL 0.8 MG/DL (0.2-1.0); CALCIUM LEVEL 9.9 MG/DL (8.5-10.1); CREATININE FOR GFR 1.04 MG/DL (0.55-1.30); GLOMERULAR FILTRATION RATE 57.9 (>51); PERCENT SATURATION 27.1 % (13.2-45.0); POTASSIUM SERUM 4.2 MEQ/L (3.5-5.1); THYROID STIMULATING HORMONE 2.64 uIU/ML (0.358-3.740); TOTAL PROTEIN 7.2 GM/DL (6.4-8.2)
== END ==
LOC: M SFHCPLAZ 11:44
PROVIDERS: ATTEND Family Medicine
DX: K70.30 Alcoholic cirrhosis of liver without ascites (principal); E87.1 Hypo-osmolality and hyponatremia; L65.9 Nonscarring hair loss, unspecified
CPT/HCPCS: 36415; 80053; 82728; 83550; 84443; 85025; 85610; 85730; G0463

== ENCOUNTER → 2021-11-09 | Outpatient (REF) | LOC: M LABSMTC 13:41 | PROVIDERS: ATTEND Pediatrics | DX: Z11.52 Encounter for screening for COVID-19 (principal) ==

== ENCOUNTER → 2022-02-09 | Outpatient (REF) | payer MEDICARE, OTHER | LOC: M SFHCWAGY 17:11 | PROVIDERS: ATTEND Nurse Practitioner Family | DX: L57.0 Actinic keratosis (principal); L57.8 Other skin changes due to chronic exposure to nonionizing radiation ==

== ENCOUNTER 2022-04-17 09:57 | Emergency (ER) | payer MEDICARE, OTHER ==
[~2022-04-17] VITALS: Ht 172.7 cm; Wt 75.0 kg
[~2022-04-17 09:57] MED LIST changes: +ALBU2.5V10 INH; -ALBU83IN INH
[2022-04-17] MEDS ORDERED: ESCITALOPRAM (10:15)
[2022-04-17] MEDS ORDERED: MAGIC MOUTHWASH *ED ONLY* 5ML ORAL SYRINGE SS ONE (11:15)
[2022-04-17 11:49] LABS: BASO % 0.8 % (0.0-1.0); EOS # 0.1 10^3/uL (0.0-0.5); EOS % 2.5 % (0.0-3.0); HEMATOCRIT 33.7 % (36.0-47.0); HEMOGLOBIN 11.3 g/dl (12.0-15.5); LYMPH # 1.1 10^3/uL (1.5-5.0); LYMPH % 28.5 % (24.0-44.0); MEAN CORPUSCULAR HEMOGLOBIN 32.2 pg (27.0-33.0); MEAN CORPUSCULAR HGB CONC 33.5 g/dl (32.0-36.5); MONO # 0.4 10^3/uL (0.0-0.8); MONO % 9.5 % (2.0-8.0); NEUTROPHILS # 2.3 10^3/uL (1.5-8.5); NEUTROPHILS % 58.2 % (36.0-66.0); PLATELET COUNT, AUTOMATED 132 10^3/uL (150-450); RED BLOOD COUNT 3.51 10^6/uL (4.00-5.40)
[2022-04-17 11:58] LABS: INR 1.04
[2022-04-17 11:59] LABS: PARTIAL THROMBOPLASTIN TIME 31.6 SECONDS (25.9-37.0)
[2022-04-17 12:10] LABS: ALT/SGPT 41 U/L (12-78); BILIRUBIN,TOTAL 1.8 MG/DL (0.2-1.0); BLOOD UREA NITROGEN 11 MG/DL (7-18); C REACTIVE PROTEIN QUANTITATIV 0.43 MG/DL (0.00-0.30); CALCIUM LEVEL 9.3 MG/DL (8.5-10.1); CARBON DIOXIDE LEVEL 21 MEQ/L (21-32); CHLORIDE LEVEL 103 MEQ/L (98-107); CREATININE FOR GFR 0.73 MG/DL (0.55-1.30); GLOMERULAR FILTRATION RATE > 60.0 (>51); GLUCOSE, FASTING 95 MG/DL (70-100); SODIUM LEVEL 134 MEQ/L (136-145)
[2022-04-17 12:19] LABS: APPEARANCE, URINE HAZY (CLEAR); BACTERIA, URINE AUTO 1+ (NEGATIVE); BILIRUBIN, URINE AUTO NEGATIVE (NEGATIVE); BLOOD, URINE BLOOD NEGATIVE (NEGATIVE); COLOR, URINE AMBER (YELLOW); GLUCOSE, URINE (UA) AUTO NEGATIVE (NEGATIVE); KETONE, URINE AUTO TRACE mg/dL (NEGATIVE); LEUKOCYTE ESTERASE, URINE AUTO TRACE (NEGATIVE); MUCUS, URINE SMALL (NEGATIVE); NITRITE, URINE AUTO NEGATIVE (NEGATIVE); PROTEIN, URINE AUTO NEGATIVE (NEGATIVE); RBC, URINE AUTO 3 /HPF (0-3); SPECIFIC GRAVITY URINE AUTO 1.016 (1.002-1.035); SQUAMOUS EPITHELIAL CELL UR AU 1 /HPF (0-6); TRANSITIONAL EPITHELIAL AUTO <1 /HPF; UROBILINOGEN, URINE AUTO 0.2 mg/dL (0.0-2.0); WBC, URINE AUTO 2 /HPF (0-3)
[2022-04-17 12:25] LABS: ERYTHROCYTE SEDIMENTATION RATE 33 mm/hr (0-30)
[2022-04-17 12:57] LABS: HIV 1&2 SCREEN CENTAUR NEGATIVE (NEGATIVE)
[2022-04-17 13:42] VITALS: BP 144/100
== END 2022-04-17 13:54 | disposition home or self-care (01) ==
LOC: M ED 09:57
DX: K12.0 Recurrent oral aphthae (principal); S30.0XXA Contusion of lower back and pelvis, initial encounter; S30.810A Abrasion of lower back and pelvis, initial encounter; M85.88 Other specified disorders of bone density and structure, other site; M51.37 Other intervertebral disc degeneration, lumbosacral region; Z79.899 Other long term (current) drug therapy; Z88.0 Allergy status to penicillin; Z88.2 Allergy status to sulfonamides; Z91.040 Latex allergy status

== ENCOUNTER 2022-05-16 15:21 | Emergency (ER) | payer MEDICARE, OTHER ==
[~2022-05-16] VITALS: Ht 172.7 cm; Wt 70.5 kg
[2022-05-16] MEDS: MULTIVITAMINS/MINERALS THERAP 1 TAB PO SCH ×2 (09:00→20:24)
[~2022-05-16 15:21] MED LIST changes: +ESCITALOPRAM
[2022-05-16] MEDS ORDERED: LEXA1TAB PO (15:52)
[2022-05-16 16:25] LABS: HEMATOCRIT 37.3 % (36.0-47.0); HEMOGLOBIN 12.9 g/dl (12.0-15.5); MEAN CORPUSCULAR HEMOGLOBIN 31.3 pg (27.0-33.0); MEAN CORPUSCULAR HGB CONC 34.6 g/dl (32.0-36.5); MEAN CORPUSCULAR VOLUME 90.5 fl (80.0-96.0); PLATELET COUNT, AUTOMATED 113 10^3/uL (150-450); RED BLOOD COUNT 4.12 10^6/uL (4.00-5.40); WHITE BLOOD COUNT 4.5 10^3/uL (4.0-10.0)
[2022-05-16 17:01] LABS: ACETAMINOPHEN LEVEL < 2.0 UG/ML (10.0-30.0); ALBUMIN 4.4 GM/DL (3.2-5.2); ALT/SGPT 47 U/L (12-78); BILIRUBIN,DIRECT 0.6 MG/DL (0.0-0.2); BILIRUBIN,TOTAL 1.2 MG/DL (0.2-1.0); BLOOD UREA NITROGEN 7 MG/DL (7-18); CALCIUM LEVEL 8.5 MG/DL (8.8-10.2); CARBON DIOXIDE LEVEL 22 MEQ/L (21-32); CHLORIDE LEVEL 105 MEQ/L (98-107); CREATININE FOR GFR 0.76 MG/DL (0.55-1.30); ETHYL ALCOHOL (ETHANOL) 0.361 % (0.000-0.010); GLOMERULAR FILTRATION RATE > 60.0 (>45); GLUCOSE, FASTING 118 MG/DL (70-100); POTASSIUM SERUM 3.1 MEQ/L (3.5-5.1); SALICYLATE LEVEL < 1.7 MG/DL (5.0-30.0); SODIUM LEVEL 142 MEQ/L (136-145); TOTAL PROTEIN 7.7 GM/DL (6.4-8.2)
[2022-05-16 17:24] LABS: RSV AMPLIFICATION NEGATIVE (NEGATIVE)
[2022-05-16 17:31] LABS: AMPHETAMINES LEVEL URINE NEGATIVE (NEGATIVE); BARBITURATES URINE NEGATIVE (NEGATIVE); BENZODIAZEPINES URINE NEGATIVE (NEGATIVE); CANNABINOIDS URINE NEGATIVE (NEGATIVE); COCAINE METABOLITE URINE NEGATIVE (NEGATIVE); METHADONE URINE NEGATIVE (NEGATIVE); PHENCYCLIDINE URINE NEGATIVE (NEGATIVE)
[2022-05-16 17:35] LABS: OPIATES URINE NEGATIVE (NEGATIVE)
[2022-05-16] MEDS ORDERED: ONDANSETRON 4MG ORAL DISINTEGRATING TAB PO ONE (17:40)
[2022-05-16] MEDS ORDERED: POTASSIUM CHLORIDE 10MEQ SR TABLET PO ONE (17:40)
[2022-05-16 18:03] LABS: MAGNESIUM LEVEL 1.1 MG/DL (1.8-2.4)
[2022-05-16] MEDS: FOLIC ACID 1 MG TAB PO SCH (18:13)
[2022-05-16] MEDS: LORazepam 2 MG TAB PO PRN (20:24)
[2022-05-16] MEDS: THIAMINE 100 MG TAB PO SCH (20:25)
[2022-05-17] MEDS ORDERED: ONDANSETRON 4MG ORAL DISINTEGRATING TAB PO ONE ×2 (04:20→18:45)
[2022-05-17] MEDS ORDERED: OXAZEPAM 15MG CAP PO ONE ×4 (04:55→19:00)
[2022-05-17] MEDS ORDERED: VENTAER INH (07:39)
[2022-05-17] MEDS ORDERED: BUSP5TA PO (07:39)
[2022-05-17] MEDS ORDERED: HOME MED LIST COMPLETE! XX SCH (07:40)
[2022-05-17] MEDS ORDERED: ESCITALOPRAM OXALATE 10 MG TAB (LEXAPRO) PO SCH (09:00)
[2022-05-17] MEDS: THIAMINE 100 MG TAB PO SCH (10:17)
[2022-05-17] MEDS: FOLIC ACID 1 MG TAB PO SCH (10:17)
[2022-05-17] MEDS: LORazepam 2 MG TAB PO PRN ×2 (10:57→15:16)
[2022-05-17] MEDS: busPIRone 5 MG TAB PO SCH ×2 (10:57→15:16)
[2022-05-17] MEDS: MULTIVITAMINS/MINERALS THERAP 1 TAB PO SCH (10:57)
[2022-05-17] MEDS ORDERED: ONDA4TAB6 PO (18:42)
[2022-05-17 18:52] VITALS: BP 168/90
== END 2022-05-17 18:53 | disposition home or self-care (01) ==
LOC: M ED 15:21
DX: F10.129 Alcohol abuse with intoxication, unspecified (principal); I10 Essential (primary) hypertension; J45.909 Unspecified asthma, uncomplicated; K74.60 Unspecified cirrhosis of liver; R16.1 Splenomegaly, not elsewhere classified; Z79.899 Other long term (current) drug therapy; Z88.0 Allergy status to penicillin; Z88.2 Allergy status to sulfonamides; Z91.040 Latex allergy status

== ENCOUNTER 2022-05-16 15:27 | Emergency (ER) | payer MEDICARE, OTHER ==
[2022-05-16 15:22] VITALS: BP 168/90
[2022-05-16] MEDS ORDERED: LEXA1TAB PO (15:52)
[2022-05-17] MEDS ORDERED: VENTAER INH (07:39)
[2022-05-17] MEDS ORDERED: BUSP5TA PO (07:39)
[2022-05-17] MEDS ORDERED: ONDA4TAB6 PO (18:42)
== END 2022-05-16 19:21 | disposition left against medical advice (07) ==
LOC: M ED 15:27
DX: Z53.9 Procedure and treatment not carried out, unspecified reason (principal)

== ENCOUNTER 2022-05-25 17:33 | Emergency (ER) | payer MEDICARE, OTHER ==
[~2022-05-25 17:33] MED LIST changes: +BUSP5TA PO; +LEXA1TAB PO; +ONDA4TAB6 PO; +VENTAER INH
[2022-05-25] MEDS ORDERED: LORazepam 2 MG TAB PO PRN (18:15)
[2022-05-25] MEDS ORDERED: ONDANSETRON 4MG 2ML VIAL IV ONE ×2 (18:25→19:55)
[2022-05-25 19:02] LABS: BASO % 0.7 % (0.0-1.0); EOS # 0.1 10^3/uL (0.0-0.5); EOS % 1.2 % (0.0-3.0); HEMATOCRIT 36.5 % (36.0-47.0); HEMOGLOBIN 12.3 g/dl (12.0-15.5); LYMPH # 1.9 10^3/uL (1.5-5.0); LYMPH % 47.4 % (24.0-44.0); MEAN CORPUSCULAR HEMOGLOBIN 31.6 pg (27.0-33.0); MEAN CORPUSCULAR HGB CONC 33.7 g/dl (32.0-36.5); MEAN CORPUSCULAR VOLUME 93.8 fl (80.0-96.0); MONO # 0.2 10^3/uL (0.0-0.8); MONO % 4.4 % (2.0-8.0); NEUTROPHILS # 1.9 10^3/uL (1.5-8.5); NEUTROPHILS % 45.8 % (36.0-66.0); PLATELET COUNT, AUTOMATED 125 10^3/uL (150-450); RED BLOOD COUNT 3.89 10^6/uL (4.00-5.40); WHITE BLOOD COUNT 4.1 10^3/uL (4.0-10.0)
[2022-05-25 19:31] LABS: AMPHETAMINES LEVEL URINE NEGATIVE (NEGATIVE); BARBITURATES URINE NEGATIVE (NEGATIVE); BENZODIAZEPINES URINE NEGATIVE (NEGATIVE); CANNABINOIDS URINE NEGATIVE (NEGATIVE); COCAINE METABOLITE URINE NEGATIVE (NEGATIVE); METHADONE URINE NEGATIVE (NEGATIVE); OPIATES URINE NEGATIVE (NEGATIVE); PHENCYCLIDINE URINE NEGATIVE (NEGATIVE)
[2022-05-25 19:37] LABS: ACETAMINOPHEN LEVEL < 2.0 UG/ML (10.0-30.0); ALBUMIN 4.6 GM/DL (3.2-5.2); ALT/SGPT 58 U/L (12-78); BILIRUBIN,DIRECT 1.1 MG/DL (0.0-0.2); BILIRUBIN,TOTAL 1.8 MG/DL (0.2-1.0); BLOOD UREA NITROGEN 13 MG/DL (7-18); CALCIUM LEVEL 8.5 MG/DL (8.8-10.2); CARBON DIOXIDE LEVEL 25 MEQ/L (21-32); CHLORIDE LEVEL 106 MEQ/L (98-107); CREATININE FOR GFR 0.81 MG/DL (0.55-1.30); ETHYL ALCOHOL (ETHANOL) 0.356 % (0.000-0.010); GLOMERULAR FILTRATION RATE > 60.0 (>45); GLUCOSE, FASTING 83 MG/DL (70-100); POTASSIUM SERUM 3.9 MEQ/L (3.5-5.1); SALICYLATE LEVEL < 1.7 MG/DL (5.0-30.0); SODIUM LEVEL 142 MEQ/L (136-145); THYROID STIMULATING HORMONE 0.864 uIU/ML (0.358-3.740); TOTAL PROTEIN 7.7 GM/DL (6.4-8.2)
[2022-05-25] MEDS ORDERED: THIAMINE 100 MG TAB PO SCH (21:00)
[2022-05-25] MEDS ORDERED: OXAZEPAM 15MG CAP PO ONE (21:35)
[2022-05-25] MEDS ORDERED: ACETAMINOPHEN 325 MG TAB PO ONE (23:10)
[2022-05-25 23:13] VITALS: BP 151/97
[2022-05-26] LABS: RSV AMPLIFICATION NEGATIVE (NEGATIVE)
[2022-05-26] MEDS ORDERED: MULTIVITAMINS/MINERALS THERAP 1 TAB PO SCH (09:00)
[2022-05-26] MEDS ORDERED: FOLIC ACID 1 MG TAB PO SCH (09:00)
== END 2022-05-25 23:17 | disposition short-term general hospital (02) ==
LOC: M ED 17:33 → EDBD 17:33 → M ED 23:17
DX: F10.139 Alcohol abuse with withdrawal, unspecified (principal); I10 Essential (primary) hypertension; J45.909 Unspecified asthma, uncomplicated; Z79.899 Other long term (current) drug therapy; Z88.0 Allergy status to penicillin; Z88.2 Allergy status to sulfonamides; Z91.040 Latex allergy status
CPT/HCPCS: 80048; 80076; 80143; 80307; 82077; 82550; 84443; 85025; 87631; 93005; 93041; 94760; 96374; 96376; 99285; J2405

== ENCOUNTER 2022-05-30 21:28 | Emergency (ER) | payer MEDICARE, OTHER ==
[2022-05-30] MEDS: THIAMINE 100 MG TAB PO SCH (21:00)
[2022-05-30 22:24] LABS: HEMATOCRIT 36.8 % (36.0-47.0); HEMOGLOBIN 12.3 g/dl (12.0-15.5); MEAN CORPUSCULAR HEMOGLOBIN 32.7 pg (27.0-33.0); MEAN CORPUSCULAR HGB CONC 33.4 g/dl (32.0-36.5); MEAN CORPUSCULAR VOLUME 97.9 fl (80.0-96.0); PLATELET COUNT, AUTOMATED 147 10^3/uL (150-450); RED BLOOD COUNT 3.76 10^6/uL (4.00-5.40); WHITE BLOOD COUNT 4.6 10^3/uL (4.0-10.0)
[2022-05-30 22:59] LABS: ACETAMINOPHEN LEVEL < 2.0 UG/ML (10.0-30.0); ALBUMIN 4.1 GM/DL (3.2-5.2); ALT/SGPT 122 U/L (12-78); BILIRUBIN,DIRECT 0.8 MG/DL (0.0-0.2); BILIRUBIN,TOTAL 1.1 MG/DL (0.2-1.0); BLOOD UREA NITROGEN 14 MG/DL (7-18); CALCIUM LEVEL 8.5 MG/DL (8.8-10.2); CARBON DIOXIDE LEVEL 28 MEQ/L (21-32); CHLORIDE LEVEL 111 MEQ/L (98-107); CREATININE FOR GFR 1.02 MG/DL (0.55-1.30); ETHYL ALCOHOL (ETHANOL) 0.275 % (0.000-0.010); GLOMERULAR FILTRATION RATE 58.8 (>45); GLUCOSE, FASTING 94 MG/DL (70-100); POTASSIUM SERUM 4.1 MEQ/L (3.5-5.1); SALICYLATE LEVEL < 1.7 MG/DL (5.0-30.0); SODIUM LEVEL 145 MEQ/L (136-145); TOTAL PROTEIN 7.7 GM/DL (6.4-8.2)
[2022-05-30] MEDS ORDERED: LORazepam 2 MG TAB PO PRN (23:10)
[2022-05-31 01:46] LABS: RSV AMPLIFICATION NEGATIVE (NEGATIVE)
[2022-05-31 03:12] LABS: AMPHETAMINES LEVEL URINE NEGATIVE (NEGATIVE); BARBITURATES URINE NEGATIVE (NEGATIVE); BENZODIAZEPINES URINE POSITIVE (NEGATIVE); CANNABINOIDS URINE NEGATIVE (NEGATIVE); COCAINE METABOLITE URINE NEGATIVE (NEGATIVE); METHADONE URINE NEGATIVE (NEGATIVE); OPIATES URINE NEGATIVE (NEGATIVE); PHENCYCLIDINE URINE NEGATIVE (NEGATIVE)
[2022-05-31] MEDS ORDERED: NYST1POW9 TOP (06:58)
[2022-05-31] MEDS ORDERED: VITA100093 PO (06:58)
[2022-05-31] MEDS ORDERED: C 50TAB PO (06:58)
[2022-05-31] MEDS ORDERED: POTA99CA2 PO (06:58)
[2022-05-31] MEDS ORDERED: VITA400C80 PO (06:58)
[2022-05-31] MEDS ORDERED: ACAM0.05 PO (06:58)
[2022-05-31] MEDS ORDERED: B-COTAB4 PO (06:58)
[2022-05-31] MEDS ORDERED: MULT-40 PO (06:58)
[2022-05-31] MEDS ORDERED: BETA0.0543 TOP (06:58)
[2022-05-31] MEDS ORDERED: A-10CAP2 PO (06:58)
[2022-05-31] MEDS ORDERED: ONDA4TAB6 PO (06:58)
[2022-05-31] MEDS ORDERED: MAGN400T35 PO (06:58)
[2022-05-31] MEDS ORDERED: AMLO1TAB25 PO (06:58)
[2022-05-31] MEDS ORDERED: HOME MED LIST COMPLETE! XX SCH (07:00)
[2022-05-31] MEDS ORDERED: MULTIVITAMINS/MINERALS THERAP 1 TAB PO SCH (09:00)
[2022-05-31] MEDS ORDERED: FOLIC ACID 1 MG TAB PO SCH (09:00)
[2022-05-31] MEDS: THIAMINE 100 MG TAB PO SCH (09:33)
[2022-05-31] MEDS ORDERED: OXAZEPAM 15MG CAP PO ONE (18:00)
[2022-05-31 18:05] VITALS: BP 165/97
[2022-05-31 19:52] VITALS: BP 159/89
== END 2022-05-31 19:53 | disposition home or self-care (01) ==
LOC: M ED 21:28 → CANBEDREQ 05-31 12:54 → M ED 05-31 19:53
DX: F10.129 Alcohol abuse with intoxication, unspecified (principal); I10 Essential (primary) hypertension; F32.9 Major depressive disorder, single episode, unspecified; Z79.899 Other long term (current) drug therapy; Z88.0 Allergy status to penicillin; Z88.2 Allergy status to sulfonamides; Z91.040 Latex allergy status

== ENCOUNTER 2022-06-26 16:00 | Emergency (ER) | payer MEDICARE ==
[~2022-06-26 16:00] MED LIST changes: +A-10CAP2 PO; +ACAM0.05 PO; +AMLO1TAB25 PO; +B-COTAB4 PO; +BETA0.0543 TOP; +C 50TAB PO; +MAGN400T35 PO; +MULT-40 PO; +NYST1POW9 TOP; +POTA99CA2 PO; +VITA100093 PO; +VITA400C80 PO
[2022-06-26] MEDS ORDERED: BOOSTRIX/ADACEL VACCINE (DIPHTH/PERTUSS/ACELL/TETANUS) 0.5ML SYR IM.IMMUN ONE (16:45)
[2022-06-26 17:00] VITALS: BP 118/70
[2022-06-26 17:22] LABS: BASO % 0.5 % (0.0-1.0); EOS # 0.1 10^3/uL (0.0-0.5); EOS % 1.1 % (0.0-3.0); HEMATOCRIT 34.1 % (36.0-47.0); HEMOGLOBIN 12.1 g/dl (12.0-15.5); LYMPH % 22.1 % (24.0-44.0); MEAN CORPUSCULAR HEMOGLOBIN 32.5 pg (27.0-33.0); MEAN CORPUSCULAR HGB CONC 35.5 g/dl (32.0-36.5); MEAN CORPUSCULAR VOLUME 91.7 fl (80.0-96.0); MONO # 0.3 10^3/uL (0.0-0.8); MONO % 6.3 % (2.0-8.0); NEUTROPHILS # 3.1 10^3/uL (1.5-8.5); NEUTROPHILS % 69.5 % (36.0-66.0); RED BLOOD COUNT 3.72 10^6/uL (4.00-5.40); WHITE BLOOD COUNT 4.4 10^3/uL (4.0-10.0)
[2022-06-26] MEDS ORDERED: METO1TAB87 PO (17:44)
[2022-06-26] MEDS ORDERED: KEPP1TAB PO (17:44)
[2022-06-26] MEDS ORDERED: ASPI-1 PO (17:44)
[2022-06-26 17:53] LABS: PLATELET COUNT, AUTOMATED 75 10^3/uL (150-450)
[2022-06-26 18:14] LABS: CALCIUM LEVEL 8.6 MG/DL (8.8-10.2); CREATININE FOR GFR 1.04 MG/DL (0.55-1.30); GLOMERULAR FILTRATION RATE 57.5 (>45); POTASSIUM SERUM 2.9 MEQ/L (3.5-5.1); THYROID STIMULATING HORMONE 3.04 uIU/ML (0.358-3.740)
== END 2022-06-26 17:40 | disposition left against medical advice (07) ==
LOC: M ED 16:00
DX: I48.91 Unspecified atrial fibrillation (principal); R56.9 Unspecified convulsions; F10.10 Alcohol abuse, uncomplicated; F32.9 Major depressive disorder, single episode, unspecified; I10 Essential (primary) hypertension; F17.200 Nicotine dependence, unspecified, uncomplicated; Z79.899 Other long term (current) drug therapy; Z88.0 Allergy status to penicillin; Z88.2 Allergy status to sulfonamides; Z91.040 Latex allergy status

== ENCOUNTER 2022-06-27 09:05 | Emergency (ER) | payer MEDICARE ==
[~2022-06-27] VITALS: Ht 172.7 cm; Wt 76.9 kg
[~2022-06-27 09:05] MED LIST changes: +KEPP1TAB PO; +METO1TAB87 PO
[2022-06-27 09:06] VITALS: BP 127/74
== END 2022-06-27 11:17 | disposition left against medical advice (07) ==
LOC: M ED 09:05
DX: Z53.21 Procedure and treatment not carried out due to patient leaving prior to being seen by health care provider (principal)

== ENCOUNTER 2022-06-28 21:50 | Inpatient (IN) | payer MEDICARE ==
[~2022-06-28] VITALS: Ht 172.7 cm; Wt 82.1 kg
[2022-06-28 23:06] LABS: BASO % 0.4 % (0.0-1.0); EOS # 0.1 10^3/uL (0.0-0.5); EOS % 1.5 % (0.0-3.0); HEMOGLOBIN 11.4 g/dl (12.0-15.5); LYMPH # 1.9 10^3/uL (1.5-5.0); LYMPH % 34.7 % (24.0-44.0); MEAN CORPUSCULAR HEMOGLOBIN 32.9 pg (27.0-33.0); MEAN CORPUSCULAR HGB CONC 35.6 g/dl (32.0-36.5); MEAN CORPUSCULAR VOLUME 92.2 fl (80.0-96.0); MONO # 0.5 10^3/uL (0.0-0.8); MONO % 9.1 % (2.0-8.0); NEUTROPHILS # 2.9 10^3/uL (1.5-8.5); NEUTROPHILS % 54.1 % (36.0-66.0); RED BLOOD COUNT 3.47 10^6/uL (4.00-5.40); WHITE BLOOD COUNT 5.4 10^3/uL (4.0-10.0)
[2022-06-28 23:07] LABS: PLATELET COUNT, AUTOMATED 98 10^3/uL (150-450)
[2022-06-28 23:34] LABS: RSV AMPLIFICATION NEGATIVE (NEGATIVE)
[2022-06-29 00:01] LABS: BLOOD UREA NITROGEN 7 MG/DL (7-18); CALCIUM LEVEL 8.4 MG/DL (8.8-10.2); CARBON DIOXIDE LEVEL 28 MEQ/L (21-32); CHLORIDE LEVEL 99 MEQ/L (98-107); CREATININE FOR GFR 0.79 MG/DL (0.55-1.30); ETHYL ALCOHOL (ETHANOL) 0.301 % (0.000-0.010); GLOMERULAR FILTRATION RATE > 60.0 (>45); GLUCOSE, FASTING 108 MG/DL (70-100); MAGNESIUM LEVEL 1.3 MG/DL (1.8-2.4); POTASSIUM SERUM 2.6 MEQ/L (3.5-5.1); SODIUM LEVEL 137 MEQ/L (136-145)
[2022-06-29] MEDS ORDERED: KETOROLAC 30 MG/ML 1ML VIAL IV ONE ×2 (00:15→13:10)
[2022-06-29] MEDS: MAG SULF 1GM/100ML (MAG RUN) 1 GM in IV 1 EA IV ONE ×2 (00:15→00:31)
[2022-06-29] MEDS ORDERED: POTASSIUM CHLORIDE 10MEQ SR TABLET PO ONE ×2 (00:15→04:55)
[2022-06-29] MEDS ORDERED: NS 1,000 ML IV ONE (04:05)
[2022-06-29] MEDS ORDERED: LORazepam 2 MG TAB XX PRN (04:55)
[2022-06-29] MEDS ORDERED: MAG SULF 1GM/100ML (MAG RUN) 1 GM in IV 1 EA IV ONE ×2 (04:55→14:00)
[2022-06-29] MEDS: LR 1,000 ML IV SCH ×2 (05:00→14:25)
[2022-06-29] MEDS ORDERED: LORazepam 2 MG/ML VIAL IV PRN (05:00)
[2022-06-29] MEDS ORDERED: LEXA1TAB PO (05:04)
[2022-06-29] MEDS ORDERED: METO25TA4 PO (05:04)
[2022-06-29] MEDS ORDERED: ACAM0.05 PO (05:04)
[2022-06-29] MEDS ORDERED: MAGN400T35 PO (05:04)
[2022-06-29] MEDS ORDERED: AMLO1TAB25 PO (05:04)
[2022-06-29] MEDS ORDERED: ASPI325T55 PO (05:04)
[2022-06-29] MEDS ORDERED: KEPP1TAB PO (05:04)
[2022-06-29] MEDS ORDERED: HOME MED LIST COMPLETE! XX SCH (05:05)
[2022-06-29] MEDS ORDERED: VITMTA PO (05:05)
[2022-06-29] MEDS ORDERED: ONDANSETRON 4MG 2ML VIAL IV PRN (05:15)
[2022-06-29] MEDS ORDERED: ALBUTEROL SULFATE 2.5 MG/0.5 ML INH NEB SOLN INH PRN (05:15)
[2022-06-29 05:48] LABS: BASO % 0.9 % (0.0-1.0); EOS # 0.1 10^3/uL (0.0-0.5); HEMATOCRIT 26.7 % (36.0-47.0); LYMPH # 1.1 10^3/uL (1.5-5.0); LYMPH % 48.1 % (24.0-44.0); MEAN CORPUSCULAR HEMOGLOBIN 32.6 pg (27.0-33.0); MEAN CORPUSCULAR HGB CONC 35.2 g/dl (32.0-36.5); MEAN CORPUSCULAR VOLUME 92.7 fl (80.0-96.0); MONO # 0.3 10^3/uL (0.0-0.8); MONO % 11.1 % (2.0-8.0); NEUTROPHILS % 36.5 % (36.0-66.0); RED BLOOD COUNT 2.88 10^6/uL (4.00-5.40); WHITE BLOOD COUNT 2.4 10^3/uL (4.0-10.0)
[2022-06-29 05:59] LABS: INR 1.15; PARTIAL THROMBOPLASTIN TIME 32.5 SECONDS (25.9-37.0); PROTHROMBIN TIME 15.1 SECONDS (12.7-14.5)
[2022-06-29] MEDS ORDERED: OXAZEPAM 15MG CAP PO SCH (06:00)
[2022-06-29 06:36] LABS: NEUTROPHILS # 0.9 10^3/uL (1.5-8.5); PLATELET COUNT, AUTOMATED 67 10^3/uL (150-450)
[2022-06-29 06:37] LABS: CK-MB VALUE MASS 1.2 NG/ML (<3.6); HEMOGLOBIN 9.4 g/dl (12.0-15.5); MB/CK RELATIVE INDEX 0.39 (< OR =4)
[2022-06-29 06:53] LABS: ALBUMIN 3.3 GM/DL (3.2-5.2); ALT/SGPT 40 U/L (12-78); BILIRUBIN,TOTAL 0.6 MG/DL (0.2-1.0); BLOOD UREA NITROGEN 8 MG/DL (7-18); CARBON DIOXIDE LEVEL 27 MEQ/L (21-32); CHLORIDE LEVEL 103 MEQ/L (98-107); GLOMERULAR FILTRATION RATE > 60.0 (>45); GLUCOSE, FASTING 102 MG/DL (70-100); MAGNESIUM LEVEL 1.5 MG/DL (1.8-2.4); NT-PRO BNP 1205 PG/ML (<125); POTASSIUM SERUM 2.7 MEQ/L (3.5-5.1); SODIUM LEVEL 138 MEQ/L (136-145); TOTAL PROTEIN 6.2 GM/DL (6.4-8.2)
[2022-06-29] MEDS ORDERED: OXAZEPAM 15MG CAP PO PRN (08:25)
[2022-06-29] MEDS: DOCUSATE SODIUM 100MG CAPSULE PO SCH ×2 (09:00→20:03)
[2022-06-29] MEDS ORDERED: ACAMPROSATE CALCIUM 333 MG TABLET (CAMPRAL) PO SCH (09:00)
[2022-06-29] MEDS: FOLIC ACID 1MG TAB PO SCH (09:37)
[2022-06-29] MEDS: THIAMINE 100 MG TAB PO SCH ×2 (09:37→20:03)
[2022-06-29] MEDS: ASPIRIN 325 MG TAB PO SCH (09:37)
[2022-06-29] MEDS: ASCORBIC ACID 500 MG TAB PO SCH (09:37)
[2022-06-29] MEDS: busPIRone 5 MG TAB PO SCH ×3 (09:37→20:10)
[2022-06-29] MEDS: MULTIVITAMINS/MINERALS THERAP 1 TAB PO SCH (09:37)
[2022-06-29] MEDS: ESCITALOPRAM OXALATE 10 MG TAB (LEXAPRO) PO SCH (09:38)
[2022-06-29] MEDS: levETIRAcetam 250MG TABLET (KEPPRA) PO SCH ×2 (09:38→20:02)
[2022-06-29] MEDS: METOPROLOL TART 25 MG TABLET PO SCH ×2 (09:39→20:03)
[2022-06-29] MEDS: CETIRIZINE (ZyrTEC) 10 MG TAB PO SCH (09:39)
[2022-06-29] MEDS: MAGNESIUM OXIDE 400MG TAB (MAG-OX) PO SCH ×2 (09:39→20:02)
[2022-06-29 12:57] LABS: MAGNESIUM LEVEL 1.6 MG/DL (1.8-2.4); POTASSIUM SERUM 3.3 MEQ/L (3.5-5.1)
[2022-06-29 13:06] LABS: AMPHETAMINES LEVEL URINE NEGATIVE (NEGATIVE); BARBITURATES URINE NEGATIVE (NEGATIVE); BENZODIAZEPINES URINE POSITIVE (NEGATIVE); CANNABINOIDS URINE NEGATIVE (NEGATIVE); COCAINE METABOLITE URINE NEGATIVE (NEGATIVE); METHADONE URINE NEGATIVE (NEGATIVE); OPIATES URINE NEGATIVE (NEGATIVE); PHENCYCLIDINE URINE NEGATIVE (NEGATIVE)
[2022-06-29 13:08] LABS: CLOSTRIDIUM DIFFICILE PCR NEGATIVE (NEGATIVE)
[2022-06-29] MEDS ORDERED: POTASSIUM CHLORIDE 10% LIQ 20 MEQ/15 ML UDC PO ONE ×2 (13:40→18:00)
[2022-06-29] MEDS: chlordiazePOXIDE 25 MG CAP PO SCH ×2 (14:00→22:39)
[2022-06-29 15:33] LABS: HEMOGLOBIN A1c 4.8 %
[2022-06-29] MEDS ORDERED: MORPHINE 2 MG/ML 1ML VIAL IV ONE (16:25)
[2022-06-29] MEDS ORDERED: PROHANCE 279.3MG/ML 15ML VIAL As Ordered ONE (18:36)
[2022-06-29 19:20] VITALS: BP 135/83
[2022-06-29] MEDS: ACETAMINOPHEN TAB 650MG DOSE (2X325MG) PO PRN (20:10)
[2022-06-29] MEDS ORDERED: LIDOCAINE 5% (LIDODERM) PATCH TD ONE (21:55)
[2022-06-30] VITALS: BP 125/88
[2022-06-30] MEDS: ACETAMINOPHEN TAB 650MG DOSE (2X325MG) PO PRN ×3 (00:40→12:30)
[2022-06-30] MEDS ORDERED: MORPHINE 2 MG/ML 1ML VIAL IV ONE (01:10)
[2022-06-30 04:00] VITALS: BP 116/86
[2022-06-30] MEDS: chlordiazePOXIDE 25 MG CAP PO SCH ×2 (05:02→15:31)
[2022-06-30 05:51] LABS: HEMATOCRIT 28.1 % (36.0-47.0); HEMOGLOBIN 9.3 g/dl (12.0-15.5); MEAN CORPUSCULAR HEMOGLOBIN 32.4 pg (27.0-33.0); MEAN CORPUSCULAR HGB CONC 33.1 g/dl (32.0-36.5); MEAN CORPUSCULAR VOLUME 97.9 fl (80.0-96.0); RED BLOOD COUNT 2.87 10^6/uL (4.00-5.40); WHITE BLOOD COUNT 3.2 10^3/uL (4.0-10.0)
[2022-06-30 05:54] LABS: PLATELET COUNT, AUTOMATED 82 10^3/uL (150-450)
[2022-06-30 06:23] LABS: BLOOD UREA NITROGEN 10 MG/DL (7-18); CALCIUM LEVEL 8.8 MG/DL (8.8-10.2); CARBON DIOXIDE LEVEL 27 MEQ/L (21-32); CHLORIDE LEVEL 98 MEQ/L (98-107); CREATININE FOR GFR 0.68 MG/DL (0.55-1.30); GLOMERULAR FILTRATION RATE > 60.0 (>45); GLUCOSE, FASTING 92 MG/DL (70-100); MAGNESIUM LEVEL 1.6 MG/DL (1.8-2.4); POTASSIUM SERUM 3.8 MEQ/L (3.5-5.1); SODIUM LEVEL 132 MEQ/L (136-145)
[2022-06-30] MEDS ORDERED: POTASSIUM CHLORIDE 10MEQ SR TABLET PO ONE (06:30)
[2022-06-30 07:36] VITALS: BP 133/93
[2022-06-30 08:57] LABS: VITAMIN B12 LEVEL 304 PG/ML
[2022-06-30 08:58] LABS: FOLATE 11.1 NG/ML
[2022-06-30] MEDS ORDERED: MAG SULF 1GM/100ML (MAG RUN) 1 GM in IV 1 EA IV SCH (09:00)
[2022-06-30] MEDS ORDERED: **NOTE PATIENT COMMENT** MISC XX SCH (09:00)
[2022-06-30] MEDS ORDERED: ENOXAPARIN 40MG/0.4ML SYRINGE (J1650 PER 10MG) SC SCH (09:00)
[2022-06-30] MEDS: levETIRAcetam 250MG TABLET (KEPPRA) PO SCH (09:03)
[2022-06-30] MEDS: MULTIVITAMINS/MINERALS THERAP 1 TAB PO SCH (09:04)
[2022-06-30] MEDS: DOCUSATE SODIUM 100MG CAPSULE PO SCH (09:04)
[2022-06-30] MEDS: MAGNESIUM OXIDE 400MG TAB (MAG-OX) PO SCH (09:04)
[2022-06-30] MEDS: CETIRIZINE (ZyrTEC) 10 MG TAB PO SCH (09:04)
[2022-06-30] MEDS: THIAMINE 100 MG TAB PO SCH (09:04)
[2022-06-30] MEDS: ASPIRIN 325 MG TAB PO SCH (09:04)
[2022-06-30] MEDS: ASCORBIC ACID 500 MG TAB PO SCH (09:04)
[2022-06-30 09:05] VITALS: BP 133/93
[2022-06-30] MEDS: FOLIC ACID 1MG TAB PO SCH (09:05)
[2022-06-30] MEDS: METOPROLOL TART 25 MG TABLET PO SCH (09:05)
[2022-06-30] MEDS: ESCITALOPRAM OXALATE 10 MG TAB (LEXAPRO) PO SCH (09:05)
[2022-06-30] MEDS: busPIRone 5 MG TAB PO SCH ×2 (09:11→15:31)
[2022-06-30 12:21] VITALS: BP 110/75
[2022-06-30] MEDS ORDERED: AMLO25TA PO (13:40)
[2022-06-30] MEDS ORDERED: NALT50TA4 PO (13:40)
[2022-06-30] MEDS ORDERED: CHLO25CA PO (15:11)
[2022-06-30] MEDS ORDERED: VALI5TAB PO (16:36)
== END 2022-06-30 17:29 | disposition home or self-care (01) | DRG 897 ==
LOC: M ED 21:50 → M ED INP 06-29 04:51 → ENRESERV 06-29 15:16 → M PCU 06-29 19:20
PROVIDERS: ADMIT Internal Medicine; ATTEND Internal Medicine
PROC: B246ZZZ Ultrasonography of Right and Left Heart (ICD-10-PCS; principal; 2022-06-29)
DX: F10.239 Alcohol dependence with withdrawal, unspecified (principal); I10 Essential (primary) hypertension; I48.91 Unspecified atrial fibrillation; E78.5 Hyperlipidemia, unspecified; J45.909 Unspecified asthma, uncomplicated; F41.9 Anxiety disorder, unspecified; F32.A Depression, unspecified; E87.6 Hypokalemia; E83.42 Hypomagnesemia; G40.909 Epilepsy, unspecified, not intractable, without status epilepticus; Z20.822 Contact with and (suspected) exposure to COVID-19; Z79.82 Long term (current) use of aspirin; Z79.899 Other long term (current) drug therapy; Z88.0 Allergy status to penicillin; Z88.2 Allergy status to sulfonamides; Z91.040 Latex allergy status; R19.7 Diarrhea, unspecified

== ENCOUNTER 2022-07-22 17:04 | Emergency (ER) | payer MEDICARE ==
[~2022-07-22] VITALS: Ht 172.7 cm; Wt 76.6 kg
[~2022-07-22 17:04] MED LIST changes: +AMLO25TA PO; +ASPI325T55 PO; +CHLO25CA PO; +NALT50TA4 PO; +VALI5TAB PO; +VITMTA PO
[2022-07-22 17:06] VITALS: BP 139/93
== END 2022-07-22 19:40 | disposition home or self-care (01) ==
LOC: M ED 17:04
DX: S09.93XA Unspecified injury of face, initial encounter (principal); W10.9XXA Fall (on) (from) unspecified stairs and steps, initial encounter; Z53.9 Procedure and treatment not carried out, unspecified reason; F10.10 Alcohol abuse, uncomplicated; G40.909 Epilepsy, unspecified, not intractable, without status epilepticus; K02.9 Dental caries, unspecified; K04.7 Periapical abscess without sinus; R22.0 Localized swelling, mass and lump, head; Z79.82 Long term (current) use of aspirin; Z79.899 Other long term (current) drug therapy; Z88.0 Allergy status to penicillin; Z88.2 Allergy status to sulfonamides; Z91.040 Latex allergy status

== ENCOUNTER → 2022-09-01 | Outpatient (CLI) | payer MEDICARE, OTHER ==
[2022-09-01 14:08] LABS: BASO % 0.6 % (0.0-1.0); EOS # 0.3 10^3/uL (0.0-0.5); EOS % 4.8 % (0.0-3.0); HEMATOCRIT 38.9 % (36.0-47.0); HEMOGLOBIN 12.6 g/dl (12.0-15.5); LYMPH # 1.8 10^3/uL (1.5-5.0); LYMPH % 34.1 % (24.0-44.0); MEAN CORPUSCULAR HEMOGLOBIN 30.1 pg (27.0-33.0); MEAN CORPUSCULAR HGB CONC 32.4 g/dl (32.0-36.5); MEAN CORPUSCULAR VOLUME 92.8 fl (80.0-96.0); MONO # 0.3 10^3/uL (0.0-0.8); MONO % 5.3 % (2.0-8.0); NEUTROPHILS # 2.9 10^3/uL (1.5-8.5); PLATELET COUNT, AUTOMATED 161 10^3/uL (150-450); RED BLOOD COUNT 4.19 10^6/uL (4.00-5.40); WHITE BLOOD COUNT 5.3 10^3/uL (4.0-10.0)
[2022-09-01 14:29] LABS: ALBUMIN 4.2 GM/DL (3.2-5.2); ALT/SGPT 51 U/L (12-78); BLOOD UREA NITROGEN 13 MG/DL (7-18); CALCIUM LEVEL 10.2 MG/DL (8.8-10.2); CARBON DIOXIDE LEVEL 28 MEQ/L (21-32); CHLORIDE LEVEL 100 MEQ/L (98-107); CREATININE FOR GFR 0.92 MG/DL (0.55-1.30); FERRITIN 96 NG/ML (8-252); GLOMERULAR FILTRATION RATE > 60.0 (>45); GLUCOSE, FASTING 87 MG/DL (70-100); IRON (FE) 77 UG/DL (50-170); MAGNESIUM LEVEL 1.6 MG/DL (1.8-2.4); POTASSIUM SERUM 4.6 MEQ/L (3.5-5.1); SODIUM LEVEL 132 MEQ/L (136-145); TOTAL PROTEIN 7.5 GM/DL (6.4-8.2)
[2022-09-01 14:57] LABS: TOTAL 25(OH) VITAMIN D 31.4 NG/ML (30.0-100.0); VITAMIN B12 LEVEL 710 PG/ML (247-911)
== END ==
LOC: M PLALAB 11:45
PROVIDERS: ATTEND Physician Assistant
DX: F10.10 Alcohol abuse, uncomplicated (principal); E83.42 Hypomagnesemia

== ENCOUNTER 2023-01-13 20:17 | Emergency (ER) | payer MEDICARE, OTHER ==
[~2023-01-13] VITALS: Ht 172.7 cm; Wt 68.2 kg
[2023-01-13] MEDS ORDERED: LORazepam 2 MG/ML 1ML VIAL IM STA (21:39)
[2023-01-13 21:53] LABS: HEMOGLOBIN 13.1 g/dl (12.0-15.5); MEAN CORPUSCULAR HEMOGLOBIN 29.9 pg (27.0-33.0); MEAN CORPUSCULAR HGB CONC 33.6 g/dl (32.0-36.5); PLATELET COUNT, AUTOMATED 125 10^3/uL (150-450); RED BLOOD COUNT 4.38 10^6/uL (4.00-5.40); WHITE BLOOD COUNT 4.1 10^3/uL (4.0-10.0)
[2023-01-13 22:27] LABS: AMPHETAMINES LEVEL URINE NEGATIVE (NEGATIVE); BARBITURATES URINE NEGATIVE (NEGATIVE); BENZODIAZEPINES URINE NEGATIVE (NEGATIVE); CANNABINOIDS URINE NEGATIVE (NEGATIVE); COCAINE METABOLITE URINE NEGATIVE (NEGATIVE); PHENCYCLIDINE URINE NEGATIVE (NEGATIVE)
[2023-01-13 22:28] LABS: METHADONE URINE NEGATIVE (NEGATIVE); OPIATES URINE NEGATIVE (NEGATIVE)
[2023-01-13 22:31] LABS: ACETAMINOPHEN LEVEL < 2.0 UG/ML (10.0-20.0); SALICYLATE LEVEL < 3.0 MG/DL (<30)
[2023-01-13 22:34] LABS: ALKALINE PHOSPHATASE 209 U/L (46-116); ALT/SGPT 81 U/L (7.0-40); AST/SGOT 190 U/L (<34); BILIRUBIN,DIRECT 0.4 MG/DL (<0.4); BLOOD UREA NITROGEN 8 MG/DL (9-23); CALCIUM LEVEL 8.3 MG/DL (8.3-10.6); CARBON DIOXIDE LEVEL 30 MMOL/L (20-31); CHLORIDE LEVEL 105 MMOL/L (98-107); CREATININE FOR GFR 0.73 MG/DL (0.55-1.30); GLOMERULAR FILTRATION RATE > 60.0 (>45); GLUCOSE, FASTING 98 MG/DL (74-106); POTASSIUM SERUM 3.6 MMOL/L (3.5-5.1); SODIUM LEVEL 143 MMOL/L (136-145); THYROID STIMULATING HORMONE 1.916 uIU/ML (0.55-4.78)
[2023-01-13 22:35] LABS: TOTAL PROTEIN 6.8 G/DL (5.7-8.2)
[2023-01-13 22:44] LABS: ETHYL ALCOHOL (ETHANOL) 0.446 % (0.000-0.010)
[2023-01-13] MEDS ORDERED: OLANZapine INTRAMUSCULAR 10MG VIAL IM ONE (23:45)
[2023-01-14] MEDS ORDERED: OXAZEPAM 15MG CAP PO ONE (05:40)
[2023-01-14 09:05] VITALS: BP 153/98
== END 2023-01-14 09:27 | disposition home or self-care (01) ==
LOC: M ED 20:17
DX: F10.229 Alcohol dependence with intoxication, unspecified (principal); I48.91 Unspecified atrial fibrillation; I10 Essential (primary) hypertension; E78.5 Hyperlipidemia, unspecified; Z88.0 Allergy status to penicillin; Z88.2 Allergy status to sulfonamides; Z91.040 Latex allergy status
CPT/HCPCS: 36415; 70450; 72125; 80048; 80076; 80143; 80307; 82077; 84443; 85027; 87635; 96372; 99285; J2060

== ENCOUNTER 2023-01-15 20:49 | Emergency (ER) | payer MEDICARE, OTHER ==
[~2023-01-15] VITALS: Ht 172.7 cm; Wt 76.8 kg
[2023-01-15 22:18] VITALS: BP 149/83
== END 2023-01-15 22:35 | disposition home or self-care (01) ==
LOC: M ED 20:49 → EDBD 20:49 → M ED 22:35
DX: S09.90XA Unspecified injury of head, initial encounter (principal); F10.129 Alcohol abuse with intoxication, unspecified; W19.XXXA Unspecified fall, initial encounter; Y92.099 Unspecified place in other non-institutional residence as the place of occurrence of the external cause; I48.91 Unspecified atrial fibrillation; I10 Essential (primary) hypertension; E78.5 Hyperlipidemia, unspecified; J45.909 Unspecified asthma, uncomplicated; F41.9 Anxiety disorder, unspecified; F32.9 Major depressive disorder, single episode, unspecified; Z88.0 Allergy status to penicillin; Z88.2 Allergy status to sulfonamides; Z91.040 Latex allergy status

== ENCOUNTER 2023-01-16 22:11 | Emergency (ER) | payer MEDICARE, OTHER ==
[2023-01-16 23:13] LABS: HEMATOCRIT 36.8 % (36.0-47.0); HEMOGLOBIN 12.2 g/dl (12.0-15.5); MEAN CORPUSCULAR HEMOGLOBIN 29.5 pg (27.0-33.0); MEAN CORPUSCULAR HGB CONC 33.2 g/dl (32.0-36.5); MEAN CORPUSCULAR VOLUME 88.9 fl (80.0-96.0); PLATELET COUNT, AUTOMATED 104 10^3/uL (150-450); RED BLOOD COUNT 4.14 10^6/uL (4.00-5.40)
[2023-01-16 23:15] LABS: AMPHETAMINES LEVEL URINE NEGATIVE (NEGATIVE); BARBITURATES URINE NEGATIVE (NEGATIVE); BENZODIAZEPINES URINE NEGATIVE (NEGATIVE); CANNABINOIDS URINE NEGATIVE (NEGATIVE); COCAINE METABOLITE URINE NEGATIVE (NEGATIVE); METHADONE URINE NEGATIVE (NEGATIVE); OPIATES URINE NEGATIVE (NEGATIVE); PHENCYCLIDINE URINE NEGATIVE (NEGATIVE)
[2023-01-16 23:27] LABS: ACETAMINOPHEN LEVEL < 2.0 UG/ML (10.0-20.0); SALICYLATE LEVEL < 3.0 MG/DL (<30)
[2023-01-16 23:31] LABS: ALBUMIN 4.1 G/DL (3.2-5.2); ALKALINE PHOSPHATASE 270 U/L (46-116); ALT/SGPT 99 U/L (7.0-40); AST/SGOT 229 U/L (<34); BILIRUBIN,DIRECT 0.5 MG/DL (<0.4); BILIRUBIN,TOTAL 1.3 MG/DL (0.3-1.2); BLOOD UREA NITROGEN 12 MG/DL (9-23); CALCIUM LEVEL 8.5 MG/DL (8.3-10.6); CARBON DIOXIDE LEVEL 25 MMOL/L (20-31); CHLORIDE LEVEL 104 MMOL/L (98-107); CREATININE FOR GFR 0.63 MG/DL (0.55-1.30); GLOMERULAR FILTRATION RATE > 60.0 (>45); GLUCOSE, FASTING 105 MG/DL (74-106); POTASSIUM SERUM 3.5 MMOL/L (3.5-5.1); SODIUM LEVEL 138 MMOL/L (136-145); THYROID STIMULATING HORMONE 1.586 uIU/ML (0.55-4.78)
[2023-01-16 23:40] LABS: ETHYL ALCOHOL (ETHANOL) 0.388 % (0.000-0.010)
[2023-01-17] MEDS ORDERED: OXAZEPAM 15MG CAP PO ONE (03:25)
[2023-01-17] MEDS ORDERED: ONDANSETRON 4MG ORAL DISINTEGRATING TAB PO ONE ×2 (03:25→09:50)
[2023-01-17] MEDS ORDERED: ACETAMINOPHEN TAB 650MG DOSE (2X325MG) PO ONE (09:55)
[2023-01-17 13:03] VITALS: BP 121/78
== END 2023-01-17 13:45 | disposition home or self-care (01) ==
LOC: M ED 22:11
DX: F10.129 Alcohol abuse with intoxication, unspecified (principal); F43.21 Adjustment disorder with depressed mood; Z88.0 Allergy status to penicillin; Z88.2 Allergy status to sulfonamides; Z91.040 Latex allergy status

== ENCOUNTER → 2024-08-12 | Outpatient (CLI) | payer MEDICARE, OTHER ==
[~2024-08-12] MED LIST changes: -B-COTAB4 PO; -CHLO25CA PO; +CHLO25CA10 PO; +ONDA-282 PO; -ONDA4TAB6 PO; +VITA1TAB78 PO
== END ==
LOC: M WHC 07:09
PROVIDERS: ATTEND Physician Assistant
DX: Z12.31 Encounter for screening mammogram for malignant neoplasm of breast (principal); Z80.3 Family history of malignant neoplasm of breast; Z80.42 Family history of malignant neoplasm of prostate; R92.323 Mammographic fibroglandular density, bilateral breasts

== ENCOUNTER 2024-10-15 19:18 | Emergency (ER) | payer MEDICARE, OTHER ==
[~2024-10-15] VITALS: Ht 172.7 cm; Wt 84.1 kg
[~2024-10-15 19:18] MED LIST changes: +NYST1POW3 TOP; -NYST1POW9 TOP
[2024-10-15 19:21] VITALS: BP 179/110; TEMP 97.7; O2SAT 97
== END 2024-10-15 20:35 | disposition left against medical advice (07) ==
LOC: M ED 19:18
DX: Z53.21 Procedure and treatment not carried out due to patient leaving prior to being seen by health care provider (principal)

== ENCOUNTER 2024-10-16 14:19 | Emergency (ER) | payer MEDICARE, OTHER | END 2024-10-16 15:06 | disposition left against medical advice (07) | LOC: M ED 14:19 | DX: Z53.21 Procedure and treatment not carried out due to patient leaving prior to being seen by health care provider (principal) ==

== ENCOUNTER 2024-10-16 18:44 | Emergency (ER) | payer MEDICARE, OTHER ==
[~2024-10-16] VITALS: Ht 172.7 cm; Wt 75.0 kg
[2024-10-16 20:16] LABS: BASO # 0.1 10^3/uL (0.0-0.2); BASO % 0.7 % (0.0-1.0); EOS # 0.2 10^3/uL (0.0-0.5); EOS % 2.2 % (0.0-3.0); HEMATOCRIT 40.7 % (36.0-47.0); HEMOGLOBIN 13.8 g/dl (12.0-15.5); LYMPH # 2.4 10^3/uL (1.5-5.0); LYMPH % 32.7 % (24.0-44.0); MEAN CORPUSCULAR HEMOGLOBIN 28.8 pg (27.0-33.0); MEAN CORPUSCULAR HGB CONC 33.9 g/dl (32.0-36.5); MONO # 0.4 10^3/uL (0.0-0.8); MONO % 4.9 % (2.0-8.0); NEUTROPHILS # 4.3 10^3/uL (1.5-8.5); NEUTROPHILS % 58.8 % (36.0-66.0); PLATELET COUNT, AUTOMATED 144 10^3/uL (150-450); RED BLOOD COUNT 4.79 10^6/uL (4.00-5.40); WHITE BLOOD COUNT 7.3 10^3/uL (4.0-10.0)
[2024-10-16 20:41] LABS: SALICYLATE LEVEL < 3.0 MG/DL (<30)
[2024-10-16 20:42] LABS: ALBUMIN 4.2 G/DL (3.2-5.2); ALKALINE PHOSPHATASE 124 U/L (35-104); ALT/SGPT 34 U/L (7.0-40); AST/SGOT 56 U/L (<34); BILIRUBIN,TOTAL 0.8 MG/DL (0.3-1.2); BLOOD UREA NITROGEN 16 MG/DL (9-23); CALCIUM LEVEL 8.7 MG/DL (8.3-10.6); CARBON DIOXIDE LEVEL 21 MMOL/L (20-31); CHLORIDE LEVEL 108 MMOL/L (98-107); CREATININE FOR GFR 0.74 MG/DL (0.55-1.30); GLOMERULAR FILTRATION RATE > 60.0 (>45); GLUCOSE, FASTING 88 MG/DL (74-106); MAGNESIUM LEVEL 1.6 MG/DL (1.8-2.4); PHOSPHORUS LEVEL 3.2 MG/DL (2.4-5.1); POTASSIUM SERUM 3.9 MMOL/L (3.5-5.1); SODIUM LEVEL 146 MMOL/L (136-145); TOTAL PROTEIN 7.6 G/DL (5.7-8.2)
[2024-10-16 20:54] LABS: ETHYL ALCOHOL (ETHANOL) 0.404 % (0.000-0.010)
[2024-10-16] MEDS: ONDANSETRON 4MG TAB PO ONE (21:13)
[2024-10-16] MEDS: LORazepam 0.5 MG TAB PO STA (21:13)
[2024-10-16] MEDS: diazePAM 10MG/2ML SYRINGE IM ONE (21:52)
[2024-10-17] MEDS: LORazepam 2 MG TAB PO STA (02:36)
[2024-10-17 03:12] LABS: KETONE, URINE AUTO RFX NEGATIVE (NEGATIVE); MUCUS, URINE RFX SMALL (NEGATIVE); NITRITE, URINE AUTO RFX NEGATIVE (NEGATIVE); RBC, URINE AUTO RFX 4 /HPF (0-3); SQUAM EPITHELIAL CELL UR AURFX 0 /HPF (0-6)
[2024-10-17 03:26] LABS: LEUKOCYTE ESTERASE UR AUTO RFX 3+ (NEGATIVE); WBC, URINE AUTO RFX 81 /HPF (0-3)
[2024-10-17 03:27] LABS: AMPHETAMINES LEVEL URINE NEGATIVE (NEGATIVE); BARBITURATES URINE NEGATIVE (NEGATIVE); BENZODIAZEPINES URINE NEGATIVE (NEGATIVE); COCAINE METABOLITE URINE NEGATIVE (NEGATIVE); METHADONE URINE NEGATIVE (NEGATIVE); OPIATES URINE NEGATIVE (NEGATIVE); PHENCYCLIDINE URINE NEGATIVE (NEGATIVE)
[2024-10-17 03:31] LABS: CANNABINOIDS URINE POSITIVE (NEGATIVE)
[2024-10-17 05:00] VITALS: BP 120/65; TEMP 97.3; O2SAT 94
== END 2024-10-17 07:40 | disposition home or self-care (01) ==
LOC: EDBD 18:44 → M ED 18:44
DX: F10.129 Alcohol abuse with intoxication, unspecified (principal); R16.0 Hepatomegaly, not elsewhere classified; F32.A Depression, unspecified; Z86.79 Personal history of other diseases of the circulatory system; Z88.0 Allergy status to penicillin; Z88.2 Allergy status to sulfonamides; Z91.040 Latex allergy status
CPT/HCPCS: 80053; 80143; 80307; 81001; 82077; 83735; 84100; 85025; 87088; 87186; 96372; 99281; 99284; J3360

== ENCOUNTER → 2025-09-02 | Outpatient (CLI) | payer MEDICARE, OTHER | LOC: M PLAIMG 12:46 | PROVIDERS: ATTEND Family Medicine | DX: R01.1 Cardiac murmur, unspecified (principal) ==

== ENCOUNTER 2025-09-22 15:57 | Inpatient (IN) | payer MEDICARE, OTHER ==
[~2025-09-22] VITALS: Ht 172.7 cm; Wt 84.9 kg
[2025-09-22] MEDS: ONDANSETRON 4MG/2ML VIAL IV ONE (17:00)
[2025-09-22 17:13] LABS: BASO # 0.1 10^3/uL (0.0-0.2); BASO % 0.5 % (0.0-1.0); EOS # 0.3 10^3/uL (0.0-0.5); EOS % 2.3 % (0.0-3.0); LYMPH # 2.1 10^3/uL (1.5-5.0); LYMPH % 19.6 % (24.0-44.0); MONO # 0.9 10^3/uL (0.0-0.8); MONO % 8.2 % (2.0-8.0); NEUTROPHILS # 7.4 10^3/uL (1.5-8.5); NEUTROPHILS % 68.9 % (36.0-66.0); PLATELET COUNT, AUTOMATED 202 10^3/uL (150-450)
[2025-09-22 17:37] LABS: INR 1.03
[2025-09-22 17:38] LABS: ALT/SGPT 58.0 U/L (7.0-40); AST/SGOT 55.0 U/L (<34); C REACTIVE PROTEIN QUANTITATIV 7.8 MG/DL (<1.0); CALCIUM LEVEL 9.9 MG/DL (8.3-10.6); CARBON DIOXIDE LEVEL 22.0 MMOL/L (20-31); CHLORIDE LEVEL 102.0 MMOL/L (98-107); CREATININE FOR GFR 0.96 MG/DL (0.55-1.30); GLOMERULAR FILTRATION RATE 66.5 (>45); POTASSIUM SERUM 3.8 MMOL/L (3.5-5.1); SODIUM LEVEL 137.0 MMOL/L (136-145)
[2025-09-22] MEDS ORDERED: PRIS50TA PO (17:49)
[2025-09-22] MEDS ORDERED: GABA-1171 PO (17:55)
[2025-09-22] MEDS ORDERED: HYDR-3363 PO (17:55)
[2025-09-22] MEDS ORDERED: SYMB80INH INH (17:55)
[2025-09-22] MEDS ORDERED: GABA-1172 PO (17:57)
[2025-09-22] MEDS: cefTRIAXone SOD 1 GM in DEXTROSE 5% (D5W) ADV/MINI-BAG 50 ML IV ONE (18:31)
[2025-09-22] MEDS ORDERED: HOME MED LIST COMPLETE! XX SCH (19:00)
[2025-09-22] MEDS ORDERED: ONDANSETRON 4MG/2ML VIAL IV PRN (19:10)
[2025-09-22] MEDS ORDERED: MOM 30 ML SUSPENSION UDC PO PRN (19:10)
[2025-09-22] MEDS: NS (Normal Saline) 0.9% 1,000 ML IV SCH (19:33)
[2025-09-22] MEDS: SYMBICORT 80/4.5MCG INHALER 6GM INH SCH (20:00)
[2025-09-22] MEDS: GABAPENTIN 300 MG CAP PO SCH (21:41)
[2025-09-23 04:55] VITALS: BP 151/82; TEMP 97.9; O2SAT 94
[2025-09-23 06:48] LABS: PLATELET COUNT, AUTOMATED 146 10^3/uL (150-450)
[2025-09-23 07:20] LABS: ALT/SGPT 45.0 U/L (7.0-40); AST/SGOT 42.0 U/L (<34); CALCIUM LEVEL 8.3 MG/DL (8.3-10.6); CARBON DIOXIDE LEVEL 23.0 MMOL/L (20-31); CHLORIDE LEVEL 106.0 MMOL/L (98-107); CREATININE FOR GFR 0.8 MG/DL (0.55-1.30); GLOMERULAR FILTRATION RATE 82.7 (>45); MAGNESIUM LEVEL 1.6 MG/DL (1.8-2.4); POTASSIUM SERUM 3.6 MMOL/L (3.5-5.1); SODIUM LEVEL 140.0 MMOL/L (136-145)
[2025-09-23] MEDS: ENOXAPARIN 40 MG/0.4 ML SYRINGE (J1650 PER 10MG) SC SCH (09:07)
[2025-09-23] MEDS: THIAMINE 100 MG TAB PO SCH (09:07)
[2025-09-23] MEDS: MULTIVITAMINS/MINERALS THERAP 1 TAB PO SCH (09:08)
[2025-09-23] MEDS: FOLIC ACID 1 MG TAB PO SCH (09:08)
[2025-09-23 09:09] VITALS: BP 164/92
[2025-09-23 14:00] VITALS: BP 183/83; TEMP 98.2; O2SAT 95
[2025-09-23 14:02] VITALS: BP 183/83
[2025-09-23 14:13] VITALS: BP 176/83
[2025-09-23] MEDS: cefTRIAXone SOD 2 GM in DEXTROSE 5% (D5W) ADV/MINI-BAG 50 ML IV SCH (17:30)
[2025-09-23] MEDS: FLUZONE VACCINE TRI PF(25-26) 0.5ML SYRINGE IM.IMMUN ONE (17:35)
[2025-09-23] MEDS: traZODone 50 MG TAB PO PRN (20:14)
[2025-09-23] MEDS: ACETAMINOPHEN 325 MG TAB PO PRN (20:16)
[2025-09-23 20:27] VITALS: BP 140/74; TEMP 98; O2SAT 95
[2025-09-24 06:34] VITALS: BP 142/74; TEMP 97.5; O2SAT 97
[2025-09-24 08:35] LABS: BASO # 0.0 10^3/uL (0.0-0.2); BASO % 0.5 % (0.0-1.0); EOS # 0.2 10^3/uL (0.0-0.5); EOS % 5.0 % (0.0-3.0); LYMPH # 1.5 10^3/uL (1.5-5.0); LYMPH % 37.8 % (24.0-44.0); MONO # 0.3 10^3/uL (0.0-0.8); MONO % 7.8 % (2.0-8.0); NEUTROPHILS # 1.9 10^3/uL (1.5-8.5); NEUTROPHILS % 48.4 % (36.0-66.0); PLATELET COUNT, AUTOMATED 143 10^3/uL (150-450)
[2025-09-24 09:00] VITALS: BP 142/74
[2025-09-24 09:07] LABS: C REACTIVE PROTEIN QUANTITATIV 2.8 MG/DL (<1.0)
[2025-09-24 09:08] LABS: CALCIUM LEVEL 8.5 MG/DL (8.3-10.6); CARBON DIOXIDE LEVEL 27.0 MMOL/L (20-31); CHLORIDE LEVEL 106.0 MMOL/L (98-107); CREATININE FOR GFR 0.87 MG/DL (0.55-1.30); GLOMERULAR FILTRATION RATE 74.8 (>45); MAGNESIUM LEVEL 1.4 MG/DL (1.8-2.4); POTASSIUM SERUM 3.6 MMOL/L (3.5-5.1); SODIUM LEVEL 142.0 MMOL/L (136-145)
[2025-09-24] MEDS: MAG SULF 1GM/100ML (MAG RUN) 1 GM in IV 1 EA IV ONE (11:24)
[2025-09-24 14:00] VITALS: TEMP 98.4; O2SAT 96
[2025-09-24 15:08] VITALS: BP 168/96
[2025-09-24 22:00] VITALS: BP_SYST 168; BP_SYST 190; BP_DIAS 103; BP_DIAS 96; TEMP 98.2; O2SAT 96
[2025-09-25 05:30] VITALS: BP 172/114; TEMP 97.2; O2SAT 96
[2025-09-25] MEDS: amLODIPine 5 MG TAB PO ONE ×2 (05:37→09:24)
[2025-09-25 06:30] VITALS: BP 188/98
[2025-09-25 06:54] LABS: PLATELET COUNT, AUTOMATED 152 10^3/uL (150-450)
[2025-09-25] MEDS ORDERED: MORPHINE 2 MG/ML 1 ML VIAL IV PRN (08:55)
[2025-09-25] MEDS ORDERED: NALOXONE INJ 0.4 MG/1 ML VIAL IV PRN (08:55)
[2025-09-25] MEDS: MAG SULF 1GM/100ML (MAG RUN) 1 GM in IV 1 EA IV SCH (09:25)
[2025-09-25 09:36] VITALS: BP 190/108
[2025-09-25] MEDS: METOPROLOL TART 25 MG TABLET PO ONE (10:01)
[2025-09-25] MEDS: MORPHINE 4 MG/ML 1 ML VIAL IV ONE (10:01)
[2025-09-25 10:58] VITALS: BP 162/90
[2025-09-25 11:25] VITALS: BP 142/86
[2025-09-25] MEDS ORDERED: METOPROLOL TART 25 MG TABLET PO SCH (12:00)
[2025-09-25] MEDS ORDERED: VANCOMYCIN HCL 1,000 MG in IV FLUID PLACE HOLDER 1 EA IV SCH (15:00)
[2025-09-25] MEDS: VANCOMYCIN HCL 1,500 MG, VIAL MATE ADAPTER 1 EACH in NS 500 ML IV ONE (15:54)
[2025-09-25] MEDS: METOPROLOL TART 25 MG TABLET PO SCH (17:39)
[2025-09-25 20:31] VITALS: BP 118/69; TEMP 97.8; O2SAT 97
[2025-09-26] VITALS (7 sets, daily range): BP systolic 127–151; BP diastolic 69–89; TEMP 97.3–98.2; O2SAT 95–97
[2025-09-26] MEDS: VANCOMYCIN HCL 750 MG, VIAL MATE ADAPTER 1 EACH in NS 250 ML IV SCH (02:09)
[2025-09-26 08:47] LABS: CALCIUM LEVEL 8.4 MG/DL (8.3-10.6); CARBON DIOXIDE LEVEL 26.0 MMOL/L (20-31); CHLORIDE LEVEL 105.0 MMOL/L (98-107); CREATININE FOR GFR 0.8 MG/DL (0.55-1.30); GLOMERULAR FILTRATION RATE 82.7 (>45); POTASSIUM SERUM 3.7 MMOL/L (3.5-5.1); SODIUM LEVEL 141.0 MMOL/L (136-145)
[2025-09-26] MEDS: VANCOMYCIN HCL 1,000 MG, VIAL MATE ADAPTER 1 EACH in NS 250 ML IV SCH (10:34)
[2025-09-27 05:17] VITALS: BP 144/86; TEMP 97.9; O2SAT 97
[2025-09-27 05:20] VITALS: BP 144/86
[2025-09-27 05:43] VITALS: BP 144/86
[2025-09-27 08:47] LABS: VANCOMYCIN LEVEL TROUGH 12.5 UG/ML (10.0-20.0)
[2025-09-27 08:48] LABS: C REACTIVE PROTEIN QUANTITATIV 0.6 MG/DL (<1.0)
[2025-09-27] MEDS: CEPHALEXIN 500 MG CAP PO SCH (08:55)
[2025-09-27] MEDS: DOXYCYCLINE HYCLATE 100 MG TABLET PO SCH (08:55)
[2025-09-27 10:00] VITALS: BP 135/84; TEMP 98; O2SAT 97
[2025-09-27] MEDS ORDERED: CEPH500C PO (10:56)
[2025-09-27] MEDS ORDERED: DOXY100T PO (10:56)
== END 2025-09-27 12:15 | disposition home or self-care (01) | DRG 872 ==
LOC: M ED 15:57 → M ED INP 19:08 → M MS5PR 09-23 03:07
PROVIDERS: ADMIT Internal Medicine; ATTEND General Practice
DX: A41.9 Sepsis, unspecified organism (principal); L03.115 Cellulitis of right lower limb; L03.31A Cellulitis of flank; K76.6 Portal hypertension; L03.312 Cellulitis of back [any part except buttock and flank]; L03.113 Cellulitis of right upper limb; L02.415 Cutaneous abscess of right lower limb; I10 Essential (primary) hypertension; E78.5 Hyperlipidemia, unspecified; J45.909 Unspecified asthma, uncomplicated; K70.9 Alcoholic liver disease, unspecified; I48.91 Unspecified atrial fibrillation; R74.01 Elevation of levels of liver transaminase levels; E83.42 Hypomagnesemia; F32.A Depression, unspecified; F41.9 Anxiety disorder, unspecified; Z98.41 Cataract extraction status, right eye; Z98.42 Cataract extraction status, left eye; Z90.49 Acquired absence of other specified parts of digestive tract; F17.200 Nicotine dependence, unspecified, uncomplicated; Z79.899 Other long term (current) drug therapy; Z88.2 Allergy status to sulfonamides; Z91.040 Latex allergy status